=== PATIENT | female | born 1945 | race Caucasian/White ===

== ENCOUNTER 2017-03-18 15:32 | Observation (INO) ==
--- NOTE | 2017-03-18 16:45 | Oncology History&Physical ---
History of Present Illness Chief complaint: Chronic Lymphocytic Leukemia History of present illness: Ms. Clark is a 72 year old female with CLL who is admitted with progressive weakness and a rising WBC. She has had chronic lymphocytic leukemia since October 08, 2010. Her leukemia is CD20 positive. Recently her leukemia has been complicated by neutropenia. In addition, it has been complicated by shingles that affected the left arm ulnar nerve distribution in January 2015. Was treated with Valtrex and earlier this year the rash recurred without vesicles. This is unusual but does occasionally occur. I have been considering resumption of treatment of her leukemia. She has not been treated with chemotherapy since November of this year. Her last treatment consisted of bendamustine 150 mg IV when her white cell count reached 107,400. Blood work on the day of this admission included a white cell count of 122,600 with an absolute neutrophil count of 1100. Her hemoglobin was 9.2 and her platelet count was 141,000. Comprehensive metabolic profile is surprisingly normal except for a slightly high alkaline phosphatase of 115, random glucose of 276 and she had a normal LDH of 175. Her CLL has been complicated by neck pain and a ruptured lumbar disc requiring kyphoplasty. In addition she is becoming progressively more immunosuppressed with more prolonged neutropenia over the last year. My plan is to hydrate her and treat her with Rituxan tomorrow. She has reacted to Rituxan in the past and the infusion will be a long one. I also plan to treat with Treanda or Fludarabine if it can be obtained while she is an in- patient. Past medical history: Allergies: No known allergies. However she has had difficulty tolerating Rituxan in the past. Past medical history is positive for diabetes mellitus and she sees Dr. Gong for this and other medical problems. She also has a history of autoimmune hepatitis, B12 deficiency, hyperlipidemia, hypertension and chronic thyroid disease. She had been on 6-mercaptopurine for an extended period of time and I felt this contributed to her marrow suppression. The 6-MP has been stopped and at least resulted in some slight improvement in her prolonged neutropenia. In addition, there is very little evidence that her autoimmune hepatitis is activated presently. Family history is positive for colon cancer in her father, coronary artery disease and cancer of unknown type in her mother and diabetes mellitus in her mother. Social history she has never used tobacco or alcohol. Review of systems: ROS Gen.: Positive for fever and fatigue. Eyes: Positive for floaters and itchy eyes. No history of chronic disease, infections or visual loss. ENT: No history of chronic infections, epistaxis, chronic sore throat Lungs: Lately she has been having some chest wall pain with respiration. The pain is primarily in the right lower lateral chest wall. No history of asthma, emphysema, hemoptysis, chronic pleurisy or long-term or chronic infections Cardiovascular: No history of angina, coronary artery disease, congestive heart failure, cardiovascular surgery or DVT/VTE GI: Positive for bloating and decreased appetite. No history of upper or lower GI bleeding, melena, dysphagia, odynophagia, liver disease, gallbladder disease or pancreatic disease. : Positive for urinary frequency and also intermittent urinary tract infections. No history of kidney stones, chronic kidney infections or hematuria. Musculoskeletal: Positive for neck pain as well as back pain and positive for kyphoplasty and generalized muscle weakness. No history of chronic bone or joint pain or focal muscle atrophy or bone or joint deformity. Neurologic: Positive for shingles infecting the left ulnar nerve distribution with some hyperesthesias and tingling. No history of seizures, convulsions or paralysis. Psychiatric: No history of chronic psychiatric illness or psychiatric medications. Lymphatic: No history of significant or long-term lymphadenopathy in spite of having chronic lymphocytic leukemia. Hematologic: Positive for anemia, neutropenia and thrombocytopenia of varying degrees, depending on her CLL status and treatment status. No history of bleeding disorders or blood dyscrasias or long-term elevation or depression white cell count or petechiae. Skin: Positive for shingles approximately 2 years ago with a recurrence more recently. In addition, positive for development of a more recent generalized blotchy slightly raised skin rash for approximately the last month. No history of chronic skin infections. Physical examination: General: The patient appears acutely and chronically ill and also very weak and debilitated and is having trouble ambulating. Eyes: Normal lids and conjunctivae. ENT: Normal lips teeth and gums. Oral mucosa is normal pharyngeal mucosa appears normal as well and there are no masses within the oropharynx. The trachea is midline and there are no neck masses. Hearing is normal. Nodes: There is no submandibular, cervical, supraclavicular or axillary adenopathy. Respiratory: She is tender over the lower right lateral chest. Breath sounds are normal throughout without rubs, rales or rhonchi. There is symmetrical unlabored chest motion with respiration. Cardiovascular: Her heart rhythm is regular without murmur, gallop or rub. There is no jugular venous distention, clubbing or cyanosis. Vascular: No significant varicosities or evidence of DVT. Radial pulses are normal. Carotid examination reveals no bruits. Abdomen: There are no abdominal masses, organomegaly, distention, tenderness or ascites. Musculoskeletal: Her gait is somewhat unstable and she is generally weak without focal muscle atrophy or bone or joint deformity. Neurologic: Cranial nerves II through XII are intact. The no focal neurologic deficits. Psychiatric: She is oriented to time, place, person and situation. Impression: Chronic lymphocytic leukemia with progression of disease: Mild neutropenia: Anemia secondary to chronic illness and CLL: Autoimmune hepatitis: History of B12 deficiency: Diabetes mellitus: Hypertensive cardiovascular disease: History of thyroid disease: History of hyperlipidemia: My plan is to treat the patient's chronic lymphocytic leukemia and to hydrate her presently and observe her for couple days to see if her strength will not improve. Home Medications Medication Instructions Recorded Confirmed Type Cyanocobalamin Inj [Vitamin B12 1,000 mcg IM Q30D 03/27/16 03/18/17 History Inj] Glimepiride 2 mg PO DAILY 03/27/16 03/18/17 History Levothyroxine Tab [Synthroid Tab] 100 mcg PO DAILY@0700 03/27/16 03/18/17 History NIFEdipine [Nifedipine ER] 30 mg PO DAILY 03/27/16 03/18/17 History hydrALAZINE TAB [Apresoline Tab] 25 mg PO BID 03/27/16 03/18/17 History predniSONE TAB [PredniSONE] 5 mg PO DAILY 03/27/16 03/18/17 History Allergies Allergy/AdvReac Type Severity Reaction Status Date / Time No Known Allergies Allergy Unverified 03/27/16 09:45 Medical,Surgical,& Family Hx - Medical History Cardio: History of: Hypertension No history of: Aneurysm, Cardiac Dysrhythmia, Cerebrovascular Disease, Congenital Heart Disease, CHF, CAD, MA, Pacemaker, PVD, Valvular Heart Disease, Cardiovascular Problems Endocrine: History of: Diabetes Mellitus (NIDDM), Thyroid Disorder No history of: Dyslipidemia Renal: No history of: Renal (Kidney) Cancer, Dialysis, Renal Failure, Renal Problems Genitourinary: History of: Bladder Problem (Bladder tact) No history of: Kidney Stones, Recurring Urinary Tract Infections, Genitourinary Cancer, Problems Gastrointestinal: No history of: Hemorrhoids Musculoskeletal: History of: Musculoskeletal Problems (back pain) Hematology: History of: Hematologic Cancer Other: History of: Cancer (leukemia), Miscellaneous Medical Problems (leukemia) - Surgical History Cardiac Surgeries: Patient Denies: Femoral-Popliteal Bypass Graft, Cardiac Catheterization, Cardiac Surgery, Carotid Endarterectomy, Internal Defibrillator, Vascular Access Devices HEENT Surgeries: Patient denies: Carotid Endarterectomy Abdominal Surgeries: Patient denies: Abdominal Surgery, Splenectomy Reproductive Surgeries: Surgical HX of;: Hysterectomy (partial) - Family History Family History: Reports;: Family Cancer (father had colon cancer), Family Diabetes (mother), Family Heart Disease (mother) Denies;: Family Anesthesia Reaction, Family Hypertension, Family Psychiatric Problems, Family Stroke - Social History Smoking Status: Never smoker Exam - Constitutional Vitals: Period Temp Pulse Resp BP Sys/Lawler Pulse Ox Last 24 Hr 97.2 F 75 18 189/75 96 Results - Labs CBC & BMP: 03/19/17 04:33 03/19/17 04:33
[2017-03-18] MEDS: DEXT 5% NACL 0.45% KCL 20 MEQ 20 MEQ/1,000 ML BAG IV SCH (17:12)
[2017-03-18] MEDS: DEXAMETHASONE INJ 20 MG in SODIUM CHLORIDE 0.9% 50 ML IV SCH (17:44)
[2017-03-19 04:47] LABS: Hematocrit 27.3 VOL% (35.7-47.0); Hemoglobin 8.4 GM/DL (12.0-16.0); Immature Granulocytes Absolute 0.04 #; Lymphocytes # 105.7 10*3/uL (1.4-4.0); Lymphocytes % 93.9 % (21.3-54.2); Mean Corpuscular HGB Conc 30.8 GM/DL (32-36); Mean Corpuscular Hemoglobin 33 PG (27-34); Mean Corpuscular Volume 106.2 FL (87-102); Mean Platelet Volume 10.3 FL (9.6-12.0); Monocytes # 5.7 10*3/uL (0.11-0.8); Monocytes % 5.1 % (1.7-12.7); Red Blood Count 2.57 MC/CUMM (3.8-5.5); Red Cell Distribution Width 16.3 % (9.3-17.3)
[2017-03-19 04:52] LABS: Platelet Count 96 T/CUMM (130-400)
[2017-03-19 04:53] LABS: White Blood Count 112.5 T/CUMM (4-12)
[2017-03-19 05:22] LABS: Segmented Neutrophils 1 % (50-85); Total Cells Counted 100
[2017-03-19 05:25] LABS: Platelet Estimate Decreased
[2017-03-19 05:26] LABS: Hypochromasia 1+; Smudge Cells 1+
[2017-03-19 05:27] LABS: Albumin 2.9 G/DL (3.4-5.0); Calcium 8.1 MG/DL (8.5-10.1); Osmolality,Calculated 285.8 MOS/KG (273-304); Potassium 5.1 MMOL/L (3.5-5.1); Tear Drop Cells Few; Total Protein 5.7 G/DL (6.4-8.3)
[2017-03-19] MEDS ORDERED: diphenhydrAMINE CAP 25 MG CAPSULE PO PRN (07:33)
[2017-03-19] MEDS ORDERED: chlorproMAZINE 25 MG TABLET PO PRN (07:33)
[2017-03-19] MEDS ORDERED: ALPRAZolam 0.25 MG TABLET PO PRN (07:33)
[2017-03-19] MEDS ORDERED: chlorproMAZINE INJ 25 MG in SODIUM CHLORIDE 0.9% 100 ML IV PRN (07:33)
[2017-03-19] MEDS ORDERED: MYLANTA/LIDO VISC 2:1 300 ML BOTTLE SWISH/SPIT PRN (07:33)
[2017-03-19] MEDS ORDERED: MAGNESIUM HYDROXIDE SUSP 30 ML UDCUP PO PRN (07:33)
[2017-03-19] MEDS ORDERED: LOPERAMIDE 2 MG CAPSULE PO PRN ×2 (07:33)
[2017-03-19] MEDS ORDERED: MYLANTA/LIDO VISC 2:1 300 ML BOTTLE SWISH/SWAL PRN (07:33)
[2017-03-19] MEDS ORDERED: ONDANSETRON 4 MG/2 ML VIAL IV PRN (07:33)
[2017-03-19] MEDS ORDERED: BENZTROPINE 2 MG/2 ML AMP IV PRN (07:33)
[2017-03-19] MEDS ORDERED: chlorproMAZINE INJ 50 MG in SODIUM CHLORIDE 0.9% 100 ML IV PRN (07:33)
[2017-03-19] MEDS ORDERED: TEMAZEPAM 7.5 MG CAPSULE PO PRN (07:33)
[2017-03-19] MEDS ORDERED: traMADol 50 MG TABLET PO PRN (07:33)
[2017-03-19] MEDS ORDERED: LACTULOSE 20 GM/30 ML UDCUP PO PRN (07:33)
[2017-03-19] MEDS ORDERED: ACETAMINOPHEN 325 MG TABLET PO PRN (07:33)
[2017-03-19] MEDS ORDERED: ALUMINUM/MAGNES/SIMETH MAX STR 30 ML UDCUP PO PRN (07:33)
[2017-03-19] MEDS ORDERED: guaiFENesin 200 MG/10 ML UDCUP PO PRN (07:33)
[2017-03-19] MEDS ORDERED: PROMETHAZINE INJ 25 MG in SODIUM CHLORIDE 0.9% 50 ML IV PRN (07:33)
--- NOTE | 2017-03-19 07:46 | EKG Report ---
Stationary ECG Study [facility] Test Date: 03/19/2017 7:44:57 AM Pat Name: GOMEZ DUBON Department: Room: 418 Gender: F [employer] Sales Representative: DANIEL : 1945 Requested by: Frederic Anguiano Order Number: [id number] Reading MD: WALDO RODRIGUEZ Intervals [place] Rate: 72 P: 59 VA: 148 QRS: 9 QRSD: 90 T: 21 QT: 380 QTc: 404 Interpretive Statements SINUS RHYTHM Electronically Signed On 03-20-17 15:40:24 CDT by WALDO RODRIGUEZ [email or web address]
[2017-03-19 08:31] LABS: Lymphocytes 99 % (20-55)
[2017-03-19 08:32] LABS: Atypical Lymphocytes Few
[2017-03-19 08:33] LABS: Macrocytosis 1+; Ovalocytes Slight
--- NOTE | 2017-03-19 08:46 | Oncology Progress Note ---
Oncology Subjective PN Interval history: Diagnoses: Chronic lymphocytic leukemia with progression of disease: We are proceeding with Rituxan today. This will need to be given exceedingly slowly because of the patient's prior history of reaction to it. I am hoping to be able to give bendamustine tomorrow. Mild neutropenia: Absolute neutrophil count today is 1000. Anemia secondary to chronic illness and CLL: Hemoglobin today is 8.4. Autoimmune hepatitis: Transaminases are normal. History of B12 deficiency: Diabetes mellitus: Starting sliding scale insulin. Hypertensive cardiovascular disease: History of thyroid disease: History of hyperlipidemia: On physical examination the shingles rash has completely cleared from her left arm and it may have been in the median nerve rather than the ulnar nerve distribution. She has a persistent rash over her lower extremities but this may have actually been small ecchymoses. She is oriented 4. Mood and affect are normal. Her lungs are clear with normal breath sounds. Heart sounds are normal. There is no jugular venous distention, clubbing or cyanosis. There is no abdominal distention or ascites and there is no abdominal mass palpable. She has no submandibular, cervical, supraclavicular or axillary adenopathy. Cranial nerves II through XII are intact. There are no focal neurologic deficits. We have bendamustine ordered for tomorrow. It actually may arrive today but I will wait for tomorrow to give it. She is feeling much better today but she has had IV dexamethasone. Exam - Constitutional Vitals: Period Temp Pulse Resp BP Sys/Lawler Pulse Ox Last 24 Hr 97.0 F-97.5 F 66-82 18-20 142-189/68-83 92-96 Results - Labs CBC & BMP: 03/19/17 04:33 03/19/17 04:33
--- NOTE | 2017-03-19 08:53 | XRay Report ---
XR chest 2V Date: 03/19/2017 7:38 AM History: CLL, weakness Comparison: 01/18/2017 Technique: PA and lateral chest Findings: The heart is borderline in size with stable right venous access catheter. Progressive parenchymal findings in the left lower lung zone. Osteopenia with prior lumbar kyphoplasty. Impression: Expiratory chest. Minimal atelectasis/infiltration at left lung base. Osteopenia with prior lumbar kyphoplasty. PROCEDURE INTERPRETED AT [facility] DEPARTMENT OF RADIOLOGY Final Report Signed by: Dr. Sudha Kapadia
[2017-03-19] MEDS ORDERED: ACETAMINOPHEN 325 MG TABLET PO ONE (09:05)
[2017-03-19] MEDS ORDERED: diphenhydrAMINE CAP 50 MG CAPSULE PO ONE (09:06)
[2017-03-19] MEDS: DEXAMETHASONE INJ 20 MG in SODIUM CHLORIDE 0.9% 50 ML IV SCH (10:36)
[2017-03-19] MEDS: predniSONE 5 MG TABLET PO SCH (10:42)
[2017-03-19] MEDS: hydrALAZINE 25 MG TABLET PO SCH ×2 (10:42→20:48)
[2017-03-19] MEDS: DEXT 5% NACL 0.45% KCL 20 MEQ 20 MEQ/1,000 ML BAG IV SCH (10:43)
[2017-03-19] MEDS: GLIMEPIRIDE 2 MG TABLET PO SCH (10:45)
[2017-03-19] MEDS ORDERED: CYANOCOBALAMIN 1000 MCG/1 ML VIAL IM SCH (11:00)
[2017-03-19] MEDS: INSULIN REGULAR 100 UNIT/ML SUBCUT SCH ×3 (11:27→20:48)
[2017-03-20] MEDS: DEXT 5% NACL 0.45% KCL 20 MEQ 20 MEQ/1,000 ML BAG IV SCH ×3 (03:49→17:40)
[2017-03-20 05:45] LABS: Basophils % 0.1 % (0.0-0.8); Hematocrit 23.9 VOL% (35.7-47.0); Hemoglobin 7.6 GM/DL (12.0-16.0); Immature Granulocytes Absolute 0.01 #; Lymphocytes % 89.9 % (21.3-54.2); Mean Corpuscular HGB Conc 31.8 GM/DL (32-36); Mean Corpuscular Hemoglobin 34 PG (27-34); Mean Corpuscular Volume 105.8 FL (87-102); Mean Platelet Volume 10.8 FL (9.6-12.0); Monocytes # 2.5 10*3/uL (0.11-0.8); Monocytes % 5.7 % (1.7-12.7); Neutrophils # 1.9 10*3/uL (1.4-7.4); Neutrophils % 4.3 % (38.7-73.9); Red Blood Count 2.26 MC/CUMM (3.8-5.5); Red Cell Distribution Width 16.6 % (9.3-17.3)
[2017-03-20 06:18] LABS: Platelet Count 66 T/CUMM (130-400); White Blood Count 43.4 T/CUMM (4-12)
[2017-03-20 06:26] LABS: Lymphocytes 89 % (20-55); Platelet Estimate Decreased; Total Cells Counted 100
[2017-03-20 06:27] LABS: Atypical Lymphocytes Few; Hypochromasia 1+; Macrocytosis Slight; Ovalocytes Slight; Segmented Neutrophils 9 % (50-85); Smudge Cells Few
[2017-03-20 06:28] LABS: Albumin 2.9 G/DL (3.4-5.0); Bilirubin,Total 1.7 MG/DL (0.2-1.0); Calcium 8.2 MG/DL (8.5-10.1); Osmolality,Calculated 291.1 MOS/KG (273-304); Potassium 4.2 MMOL/L (3.5-5.1); Total Protein 5.3 G/DL (6.4-8.3)
[2017-03-20] MEDS: LEVOTHYROXINE 100 MCG TABLET PO SCH (06:51)
[2017-03-20] MEDS ORDERED: SODIUM CHLORIDE 0.9% 250 ML IV PRN (08:57)
--- NOTE | 2017-03-20 09:02 | Oncology Progress Note ---
Oncology Subjective PN Interval history: Chronic lymphocytic leukemia with progression of disease: She received Rituxan yesterday and will receive Treanda today. Kyphoplasty for disc disease: She was having chest wall pain on admission. I suspect that the right lateral chest wall pain was related to the previous kyphoplasty done about 2 months ago and that the corticosteroids have relieved that pain. It is generally relieved by Advil and she prefers not to take narcotics. Mild neutropenia: Absolute neutrophil count today is 1900 with a total white cell count of 43,400 today, down from 112,500 on March 19. Anemia secondary to chronic illness and CLL: Hemoglobin today is 7.6. I have ordered 2 units of packed red cells to be transfused. Autoimmune hepatitis: Transaminases are normal. History of B12 deficiency: Diabetes mellitus: On sliding scale insulin. Hypertensive cardiovascular disease: History of thyroid disease: History of hyperlipidemia: Physical examination: Eyes: Normal lids and conjunctivae. ENT: Oral mucosa and pharynx normal. Hearing normal trachea midline. Lungs: Normal chest motion and breath sounds without rubs, rales or rhonchi Cardiovascular: Heart rhythm is regular without murmur, gallop or rub. There is no jugular venous distention, clubbing or cyanosis. Abdomen: No abdominal masses organomegaly. Musculoskeletal examination does not reveal any significant abnormalities today. Neurologic: Cranial nerves II through XII are intact. There are no focal neurologic deficits. Exam - Constitutional Vitals: Period Temp Pulse Resp BP Sys/Lawler Pulse Ox Last 24 Hr 96.9 F-97.9 F 66-91 18-20 99-151/50-70 92-96 Results - Labs CBC & BMP: 03/20/17 04:57 03/20/17 04:57
[2017-03-20] MEDS: GLIMEPIRIDE 2 MG TABLET PO SCH (09:15)
[2017-03-20] MEDS: predniSONE 5 MG TABLET PO SCH (09:15)
[2017-03-20] MEDS: hydrALAZINE 25 MG TABLET PO SCH ×2 (09:15→21:26)
[2017-03-20] MEDS: INSULIN REGULAR 100 UNIT/ML SUBCUT SCH ×4 (09:43→21:27)
[2017-03-20] MEDS: DEXAMETHASONE INJ 20 MG in SODIUM CHLORIDE 0.9% 50 ML IV SCH (09:44)
[2017-03-20] MEDS ORDERED: SODIUM CHLORIDE 0.9% IV ONE (10:00)
[2017-03-20] MEDS ORDERED: BENDAMUSTINE IV ONE (10:00)
[2017-03-21] MEDS: DEXT 5% NACL 0.45% KCL 20 MEQ 20 MEQ/1,000 ML BAG IV SCH (01:09)
[2017-03-21 05:10] LABS: Basophils % 0.1 % (0.0-0.8); Hematocrit 29.5 VOL% (35.7-47.0); Hemoglobin 9.5 GM/DL (12.0-16.0); Immature Granulocytes % 0.1 %; Immature Granulocytes Absolute 0.04 #; Lymphocytes # 31.4 10*3/uL (1.4-4.0); Lymphocytes % 89.7 % (21.3-54.2); Mean Corpuscular HGB Conc 32.2 GM/DL (32-36); Mean Corpuscular Hemoglobin 32 PG (27-34); Mean Platelet Volume 10.5 FL (9.6-12.0); Monocytes # 1.4 10*3/uL (0.11-0.8); Monocytes % 3.9 % (1.7-12.7); NRBC # 0.02 10*3/uL; Neutrophils # 2.2 10*3/uL (1.4-7.4); Neutrophils % 6.2 % (38.7-73.9); Platelet Count 60 T/CUMM (130-400); Red Blood Count 2.95 MC/CUMM (3.8-5.5); Red Cell Distribution Width 19.7 % (9.3-17.3)
[2017-03-21 05:43] LABS: Albumin 2.8 G/DL (3.4-5.0); Bilirubin,Total 0.4 MG/DL (0.2-1.0); Osmolality,Calculated 285.3 MOS/KG (273-304); Potassium 4.1 MMOL/L (3.5-5.1); Total Protein 5.2 G/DL (6.4-8.3)
[2017-03-21 06:13] LABS: Atypical Lymphocytes Few; Hypochromasia 1+; Lymphocytes 93 % (20-55); Macrocytosis 1+; Segmented Neutrophils 5 % (50-85); Smudge Cells Few; Total Cells Counted 100
[2017-03-21 06:14] LABS: Platelet Estimate Decreased
[2017-03-21] MEDS: LEVOTHYROXINE 100 MCG TABLET PO SCH (06:37)
[2017-03-21 07:55] VITALS: BP 163/72
[2017-03-21] MEDS: INSULIN REGULAR 100 UNIT/ML SUBCUT SCH ×2 (07:55→13:20)
[2017-03-21] MEDS: GLIMEPIRIDE 2 MG TABLET PO SCH (08:24)
[2017-03-21] MEDS: hydrALAZINE 25 MG TABLET PO SCH (08:24)
[2017-03-21] MEDS: predniSONE 5 MG TABLET PO SCH (08:25)
[2017-03-21] MEDS: DEXAMETHASONE INJ 20 MG in SODIUM CHLORIDE 0.9% 50 ML IV SCH (08:25)
--- NOTE | 2017-03-21 10:27 | Oncology Progress Note ---
Oncology Subjective PN Interval history: Chronic lymphocytic leukemia with progression of disease: She received Rituxan 500 mg IV on March 19 followed by Treanda 150 mg IV on March 20. She had a dramatic improvement in blood work from admission until today. Kyphoplasty for disc disease: She was having chest wall pain on admission. I suspect that the right lateral chest wall pain was related to the previous kyphoplasty done about 2 months ago and that the corticosteroids have relieved that pain. It is generally relieved by Advil and she prefers not to take narcotics. Her CLL management has been complicated by neck pain and a ruptured lumbar disc requiring kyphoplasty. Mild neutropenia: Absolute neutrophil count today is 35,000 with an absolute neutrophil count of 2200, down from 112,500 on March 19. Anemia secondary to chronic illness and CLL: Hemoglobin today is 9.5. She was transfused 2 units of packed red cells yesterday. Autoimmune hepatitis: I actually wonder if her underlying autoimmune hepatitis has anything to do with her elevated lymphocytes but I think that the lymphocytosis is purely due to the chronic lymphocytic leukemia. Her liver enzymes today include an AST is normal at 17 with a normal ALT of 38 and an alkaline phosphatase of 146. Her serum albumin is 2.8 and I think this is multifactorial. Thrombocytopenia: Her platelet count today is 60,000. History of B12 deficiency: Diabetes mellitus: On sliding scale insulin while hospitalized. I do not plan to send her home on this. 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 Parehs Deleon for immune hepatitis and had been on 6-mercaptopurine but this has been discontinued and her liver function has remained relatively stable without evidence of elevation of transaminases. I am making a copy of this note for her to take to Dr. Deleon. Hypertensive cardiovascular disease: History of thyroid disease: History of hyperlipidemia: Ms. Clark is a 72 year old female with CLL who is admitted with progressive weakness and a rising WBC. She has had chronic lymphocytic leukemia since October 08, 2010. Her leukemia is CD20 positive. Recently her leukemia has been complicated by neutropenia. In addition, it has been complicated by shingles that affected the left arm ulnar nerve distribution in January 2015. Was treated with Valtrex and earlier this year the rash recurred without vesicles. This is unusual but does occasionally occur. She is improved now and she has an appointment to see me April 13 with a CBC , CMP and LDH. I am instructing her to call so that she can set up a CBC, CMP and LDH for 2 weeks from now and weekly thereafter until she sees me. I Exam - Constitutional Vitals: Period Temp Pulse Resp BP Sys/Lawler Pulse Ox Last 24 Hr 97.2 F-98.7 F 63-82 18-20 143-187/67-86 92-96 Results - Labs CBC & BMP: 03/21/17 04:00 03/21/17 04:00 Specialty Discharge - Follow Up or Referrals Follow up with: Frederic Carroll MD [Physician] - 04/13/17 10:15 am (Appointment with Dr. Carroll Thursday at 10:15 AM for lab work, Doctor visit at 12:15 PM Weekly labwork at Dr. Carroll's office started the week of 03/30/17 Please have labwork from Doctor visit on faxed to Dr. Carroll.)
--- NOTE | 2017-03-21 11:38 | Discharge Summary ---
Hospital Course - Hospital Course Hospital Course: Chronic lymphocytic leukemia with progression of disease: She received Rituxan 500 mg IV on March 19 followed by Treanda 150 mg IV on March 20. She had a dramatic improvement in blood work from admission until today. Kyphoplasty for disc disease: She was having chest wall pain on admission. I suspect that the right lateral chest wall pain was related to the previous kyphoplasty done about 2 months ago and that the corticosteroids have relieved that pain. It is generally relieved by Advil and she prefers not to take narcotics. Her CLL management has been complicated by neck pain and a ruptured lumbar disc requiring kyphoplasty. Mild neutropenia: Absolute neutrophil count today is 35,000 with an absolute neutrophil count of 2200, down from 112,500 on March 19. Anemia secondary to chronic illness and CLL: Hemoglobin today is 9.5. She was transfused 2 units of packed red cells yesterday. Autoimmune hepatitis: I actually wonder if her underlying autoimmune hepatitis has anything to do with her elevated lymphocytes but I think that the lymphocytosis is purely due to the chronic lymphocytic leukemia. Her liver enzymes today include an AST is normal at 17 with a normal ALT of 38 and an alkaline phosphatase of 146. Her serum albumin is 2.8 and I think this is multifactorial. Thrombocytopenia: Her platelet count today is 60,000. History of B12 deficiency: Diabetes mellitus: On sliding scale insulin while hospitalized. I do not plan to send her home on this. 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 Paresh Deleon for immune hepatitis and had been on 6-mercaptopurine but this has been discontinued and her liver function has remained relatively stable without evidence of elevation of transaminases. I am making a copy of this note for her to take to Dr. Deleon. Hypertensive cardiovascular disease: History of thyroid disease: History of hyperlipidemia: Ms. Clark is a 72 year old female with CLL who is admitted with progressive weakness and a rising WBC. She has had chronic lymphocytic leukemia since October 08, 2010. Her leukemia is CD20 positive. Recently her leukemia has been complicated by neutropenia. In addition, it has been complicated by shingles that affected the left arm ulnar nerve distribution in January 2015. Was treated with Valtrex and earlier this year the rash recurred without vesicles. This is unusual but does occasionally occur. She is improved now and she has an appointment to see me April 13 with a CBC , CMP and LDH. I am instructing her to call so that she can set up a CBC, CMP and LDH for 2 weeks from now and weekly thereafter until she sees me. - Time spent with patient Time with patient DS: Greater than 30 minutes Specialty Discharge - Follow Up or Referrals Follow up with: Frederic Carroll MD [Physician] - 04/13/17 10:15 am (Appointment with Dr. Carroll Thursday at 10:15 AM for lab work, Doctor visit at 12:15 PM Weekly labwork at Dr. Carroll's office started the week of 03/30/17 Please have labwork from Doctor visit on faxed to Dr. Carroll.) Discharge Plan - Discharge Data Disposition: Disch To Home/Self Care Condition at Discharge: Guarded Discharge Diet: advance to your usual diet Activity: resume usual activities as tolerated Hygiene: no restrictions Weight Bearing at Discharge: weight bear as tolerated Driving: other Contact your physician if you experience:: fever over 101, Difficulty voiding, Redness or swelling, Nausea/Vomiting, Shortness of breath, Bleeding, pain uncontrolled by pain medications - Discharge Medications Continue Levothyroxine Tab [Synthroid Tab] 100 mcg PO DAILY@0700 Cyanocobalamin Inj [Vitamin B12 Inj] 1,000 mcg IM Q30D predniSONE TAB [PredniSONE] 5 mg PO DAILY Glimepiride 2 mg PO DAILY hydrALAZINE TAB [Apresoline Tab] 25 mg PO BID NIFEdipine [Nifedipine ER] 30 mg PO DAILY - Follow Up or Referral Follow Up: Frederic Carroll MD [Physician] - 04/13/17 10:15 am (Appointment with Dr. Carroll Thursday at 10:15 AM for lab work, Doctor visit at 12:15 PM Weekly labwork at Dr. Carroll's office started the week of 03/30/17 Please have labwork from Doctor visit on faxed to Dr. Carroll.) - Forms/Instructions Additional Discharge Instructions: I am sending a copy of this discharge summary to Dr. Janeth Yee by way of the patient. I am also instructing her to call my office and set up CBCs, CMP's and LDH with to be started in 2 weeks and to continue until I see her. Exam - Constitutional Vitals: Period Temp Pulse Resp BP Sys/Lawler Pulse Ox Last 24 Hr 97.2 F-98.7 F 63-82 18-20 143-187/67-86 92-96 Discharge Results Procedures and tests throughout hospitalization: Pending Orders 03/22/17 04:00 Comp Blood Count Auto Diff IN AM Comprehensive Metabolic Panel IN AM Lactate Dehydrogenase IN AM 03/23/17 04:00 Comp Blood Count Auto Diff IN AM Comprehensive Metabolic Panel IN AM Lactate Dehydrogenase IN AM 03/24/17 04:00 Comp Blood Count Auto Diff IN AM Comprehensive Metabolic Panel IN AM Lactate Dehydrogenase IN AM Labs on day of discharge: Labs from last 24 hours 03/21/17 03/21/17 03/21/17 07:42 04:00 04:00 WBC 35.0 H RBC 2.95 L D Hgb 9.5 L D Hct 29.5 L MCV 100.0 MCH 32 MCHC 32.2 RDW 19.7 H Plt Count 60 L MPV 10.5 Neut % (Auto) 6.2 L Lymph % (Auto) 89.7 H [place] % (Auto) 3.9 Eos % (Auto) 0.0 Baso % (Auto) 0.1 Neut # (Auto) 2.2 Lymph # (Auto) 31.4 H [place] # (Auto) 1.4 H Eos # (Auto) 0.0 Baso # (Auto) 0.0 Total Counted 100 Immature Gran % 0.1 Nucleated RBC % 0.1 Immature Gran # 0.04 Segmented Neutrophils 5 L Lymphocytes 93 H Monocytes 2 Nucleated RBCs # 0.02 Atypical Lymphocytes Few Smudge Cells Few Platelet Estimate Decreased Immature Plt Fraction 0.0 Hypochromasia 1+ Macrocytosis 1+ Sodium 141 Potassium 4.1 Chloride 107 Carbon Dioxide 26 Anion Gap 12.1 BUN 21 H Creatinine 0.90 GFR Calculation 66 BUN/Creatinine Ratio 23.00 H Glucose 136 H POC Glucose 89 Calculated Osmolality 285.3 Calcium 8.0 L Total Bilirubin 0.40 AST 17 ALT 38 Alkaline Phosphatase 146 H Lactate Dehydrogenase 205 Total Protein 5.2 L Albumin 2.8 L Globulin 2.4 Albumin/Globulin Ratio 1.1 Blood Type Antibody Screen Crossmatch Blood Bank Comment 03/20/17 03/20/17 03/20/17 20:58 17:00 12:32 WBC RBC Hgb Hct MCV MCH MCHC RDW Plt Count MPV Neut % (Auto) Lymph % (Auto) [place] % (Auto) Eos % (Auto) Baso % (Auto) Neut # (Auto) Lymph # (Auto) [place] # (Auto) Eos # (Auto) Baso # (Auto) Total Counted Immature Gran % Nucleated RBC % Immature Gran # Segmented Neutrophils Lymphocytes Monocytes Nucleated RBCs # Atypical Lymphocytes Smudge Cells Platelet Estimate Immature Plt Fraction Hypochromasia Macrocytosis Sodium Potassium Chloride Carbon Dioxide Anion Gap BUN Creatinine GFR Calculation BUN/Creatinine Ratio Glucose POC Glucose 271 H 275 H 198 H Calculated Osmolality Calcium Total Bilirubin AST ALT Alkaline Phosphatase Lactate Dehydrogenase Total Protein Albumin Globulin Albumin/Globulin Ratio Blood Type Antibody Screen Crossmatch Blood Bank Comment 03/20/17 04:00 WBC RBC Hgb Hct MCV MCH MCHC RDW Plt Count MPV Neut % (Auto) Lymph % (Auto) [place] % (Auto) Eos % (Auto) Baso % (Auto) Neut # (Auto) Lymph # (Auto) [place] # (Auto) Eos # (Auto) Baso # (Auto) Total Counted Immature Gran % Nucleated RBC % Immature Gran # Segmented Neutrophils Lymphocytes Monocytes Nucleated RBCs # Atypical Lymphocytes Smudge Cells Platelet Estimate Immature Plt Fraction Hypochromasia Macrocytosis Sodium Potassium Chloride Carbon Dioxide Anion Gap BUN Creatinine GFR Calculation BUN/Creatinine Ratio Glucose POC Glucose Calculated Osmolality Calcium Total Bilirubin AST ALT Alkaline Phosphatase Lactate Dehydrogenase Total Protein Albumin Globulin Albumin/Globulin Ratio Blood Type AB POSITIVE Antibody Screen Cancelled Crossmatch See Detail Blood Bank Comment Cancelled DS: Provider Date of admission: 03/18/17 15:34 Primary care physician: Jl Gong MD Attending physician on admission: Frederic Carroll MD Consults: 03/19/17 07:33 Consult to Physician [CONS] Routine Comment: notify of admission Consulting Provider: Jl Gong Discharging clinician: Frederic Carroll MD
[2017-03-21] MEDS ORDERED: HEPARIN LOCK FLUSH 500 UNIT/5 ML SYRINGE IV PRN (12:41)
[2017-03-21] MEDS ORDERED: HEPARIN LOCK FLUSH 500 UNIT/5 ML SYRINGE IV ONE (12:41)
== END 2017-03-21 13:40 | disposition home or self-care (01) ==
LOC: N.4E
PROVIDERS: ADMIT Specialist; ATTEND Specialist

== ENCOUNTER 2017-05-05 17:57 | Inpatient (IN) ==
[2017-05-05] MEDS ORDERED: SODIUM CHLORIDE 0.9% 1,000 ML IV STA (18:56)
[2017-05-05] MEDS ORDERED: cefTRIAXone 1,000 MG in SODIUM CHLORIDE 0.9% 100 ML IV STA (18:59)
[2017-05-05 19:07] LABS: Basophils % 0.1 % (0.0-0.8); Hematocrit 26.6 VOL% (35.7-47.0); Lymphocytes % 93.4 % (21.3-54.2); Mean Corpuscular HGB Conc 33.8 GM/DL (32-36); Mean Corpuscular Hemoglobin 34 PG (27-34); Mean Corpuscular Volume 99.6 FL (87-102); Mean Platelet Volume 10.3 FL (9.6-12.0); Monocytes # 2.5 10*3/uL (0.11-0.8); Monocytes % 6.2 % (1.7-12.7); Neutrophils # 0.1 10*3/uL (1.4-7.4); Neutrophils % 0.3 % (38.7-73.9); Red Blood Count 2.67 MC/CUMM (3.8-5.5); Red Cell Distribution Width 20.5 % (9.3-17.3)
[2017-05-05 19:13] LABS: Platelet Count 53 T/CUMM (130-400); White Blood Count 40.7 T/CUMM (4-12)
[2017-05-05 19:23] LABS: Calcium 7.9 MG/DL (8.5-10.1); Magnesium 1.8 MG/DL (1.8-2.4); Osmolality,Calculated 276.2 MOS/KG (273-304); Potassium 3.5 MMOL/L (3.5-5.1)
[2017-05-05 19:28] LABS: Lymphocytes 96 % (20-55); Platelet Estimate Decreased; Poikilocytosis 1+; Segmented Neutrophils 1 % (50-85); Tear Drop Cells 1+; Total Cells Counted 100
[2017-05-05 19:29] LABS: Ovalocytes Slight; Smudge Cells 1+
[2017-05-05] MEDS ORDERED: cefTRIAXone 1,000 MG VIAL ONE (19:47)
[2017-05-05 19:48] LABS: Apearance,Urine Slightly Hazy (Clear); Bacteria,Urine Few /HPF (Few); Bilirubin,Urine Negative (Negative); Blood, Urine Small mg/dL (Negative); Glucose,Urine (UA) >=500 mg/dL (Negative); Granular Casts,Urine 4 /LPF (0-1); Hyaline Casts,Urine 16 /LPF (0-3); Ketones,Urine 20 mg/dL (Negative); Mucus,Urine Occasional /LPF (Occasional); Nitrite,Urine Negative (Negative); Protein,Urine 100 MG/DL; RBC,Urine 1 /HPF (0-4); Squamous Epithelial Cell,Urine Occasional /HPF (0-10); Urine Color Yellow (Yellow); Urine Specific Gravity 1.015 (1.001-1.035); Urine Urobilinogen < 2.0 EU/DL (0.2-1.0); WBC,Urine 4 /HPF (0-6)
[2017-05-05] MEDS ORDERED: OSELTAMIVIR 75 MG CAPSULE PO ONE (21:57)
[2017-05-06] MEDS ORDERED: FILGRASTIM-SNDZ 300 MCG/0.5 ML SYRINGE SUBCUT ONE (08:00)
[2017-05-06] MEDS: MEROPENEM 1,000 MG in SODIUM CHLORIDE 0.9% 50 ML IV SCH ×2 (09:18→17:16)
[2017-05-06] MEDS: OSELTAMIVIR 75 MG CAPSULE PO SCH ×2 (09:18→21:17)
[2017-05-06] MEDS ORDERED: traMADol 50 MG TABLET PO PRN ×2 (10:02→18:22)
[2017-05-06] MEDS ORDERED: TEMAZEPAM 7.5 MG CAPSULE PO PRN ×2 (10:02→18:22)
[2017-05-06] MEDS ORDERED: ALPRAZolam 0.25 MG TABLET PO PRN ×2 (10:02→18:22)
[2017-05-06] MEDS ORDERED: chlorproMAZINE 25 MG TABLET PO PRN ×2 (10:02→18:22)
[2017-05-06] MEDS ORDERED: MYLANTA/LIDO VISC 2:1 300 ML BOTTLE SWISH/SPIT PRN ×2 (10:02→18:22)
[2017-05-06] MEDS ORDERED: ALUMINUM/MAGNES/SIMETH MAX STR 30 ML UDCUP PO PRN ×2 (10:02→18:22)
[2017-05-06] MEDS ORDERED: PROMETHAZINE INJ 25 MG in SODIUM CHLORIDE 0.9% 50 ML IV PRN ×2 (10:02→18:22)
[2017-05-06] MEDS ORDERED: ONDANSETRON 4 MG/2 ML VIAL IV PRN ×2 (10:02→18:22)
[2017-05-06] MEDS ORDERED: BENZTROPINE 2 MG/2 ML AMP IV PRN ×2 (10:02→18:22)
[2017-05-06] MEDS ORDERED: LACTULOSE 20 GM/30 ML UDCUP PO PRN ×2 (10:02→18:22)
[2017-05-06] MEDS ORDERED: MAGNESIUM HYDROXIDE SUSP 30 ML UDCUP PO PRN ×2 (10:02→18:22)
[2017-05-06] MEDS ORDERED: ACETAMINOPHEN 325 MG TABLET PO PRN ×2 (10:02→18:22)
[2017-05-06] MEDS ORDERED: guaiFENesin 200 MG/10 ML UDCUP PO PRN ×2 (10:02→18:22)
[2017-05-06] MEDS ORDERED: chlorproMAZINE INJ 25 MG in SODIUM CHLORIDE 0.9% 100 ML IV PRN ×2 (10:02→18:22)
[2017-05-06] MEDS ORDERED: MYLANTA/LIDO VISC 2:1 300 ML BOTTLE SWISH/SWAL PRN ×2 (10:02→18:22)
[2017-05-06] MEDS ORDERED: diphenhydrAMINE CAP 25 MG CAPSULE PO PRN ×2 (10:02→18:22)
[2017-05-06] MEDS ORDERED: LOPERAMIDE 2 MG CAPSULE PO PRN ×4 (10:02→18:22)
[2017-05-06] MEDS ORDERED: chlorproMAZINE INJ 50 MG in SODIUM CHLORIDE 0.9% 100 ML IV PRN ×2 (10:02→18:22)
[2017-05-06] MEDS: predniSONE 20 MG TABLET PO SCH (14:42)
[2017-05-06] MEDS: hydrALAZINE 25 MG TABLET PO SCH ×2 (14:42→21:17)
[2017-05-06] MEDS ORDERED: GLIMEPIRIDE 2 MG TABLET PO SCH (18:22)
[2017-05-06] MEDS ORDERED: hydrALAZINE 25 MG TABLET PO SCH (18:22)
[2017-05-06] MEDS ORDERED: DEXTROSE 50% 25 GM/50 ML VIAL IV PRN (18:22)
[2017-05-06] MEDS ORDERED: LEVOTHYROXINE 112 MCG TABLET PO SCH (18:22)
[2017-05-06] MEDS ORDERED: GLUCAGON 1 MG VIAL IM PRN (18:22)
[2017-05-06] MEDS ORDERED: OSELTAMIVIR 30 MG CAPSULE PO SCH (18:22)
[2017-05-06] MEDS: INSULIN REGULAR 100 UNIT/ML SUBCUT SCH ×2 (21:21→22:30)
[2017-05-06] MEDS: SODIUM CHLORIDE 0.45% 1,000 ML IV SCH (21:21)
[2017-05-07] MEDS: MEROPENEM 1,000 MG in SODIUM CHLORIDE 0.9% 50 ML IV SCH (01:12)
[2017-05-07 02:45] LABS: Apearance,Urine CLEAR (Clear); Bilirubin,Urine Negative (Negative); Blood, Urine Negative (Negative); Glucose,Urine (UA) 150 mg/dL (Negative); Hyaline Casts,Urine 1 /LPF (0-3); Ketones,Urine 5 mg/dL (Negative); Nitrite,Urine Negative (Negative); Protein,Urine 30 MG/DL; RBC,Urine <1 /HPF (0-4); Renal Epithelial Cells,Urine Occasional /HPF (<1); Squamous Epithelial Cell,Urine Occasional /HPF (0-10); Urine Color Yellow (Yellow); Urine Specific Gravity 1.008 (1.001-1.035); Urine Urobilinogen < 2.0 EU/DL (0.2-1.0); WBC,Urine 2 /HPF (0-6)
[2017-05-07 05:16] LABS: Basophils # 0.1 10*3/uL (0.0-0.2); Basophils % 0.2 % (0.0-0.8); Hematocrit 27.4 VOL% (35.7-47.0); Hemoglobin 9.2 GM/DL (12.0-16.0); Immature Granulocytes Absolute 0.01 #; Lymphocytes # 62.1 10*3/uL (1.4-4.0); Lymphocytes % 91.5 % (21.3-54.2); Mean Corpuscular HGB Conc 33.6 GM/DL (32-36); Mean Corpuscular Hemoglobin 34 PG (27-34); Mean Platelet Volume 11.6 FL (9.6-12.0); Monocytes # 5.4 10*3/uL (0.11-0.8); Monocytes % 7.9 % (1.7-12.7); Neutrophils # 0.3 10*3/uL (1.4-7.4); Neutrophils % 0.4 % (38.7-73.9); Platelet Count 61 T/CUMM (130-400); Red Blood Count 2.74 MC/CUMM (3.8-5.5); Red Cell Distribution Width 20.4 % (9.3-17.3)
[2017-05-07 05:31] LABS: Albumin 3.1 G/DL (3.4-5.0); Osmolality,Calculated 280.7 MOS/KG (273-304); Potassium 3.6 MMOL/L (3.5-5.1); Total Protein 5.6 G/DL (6.4-8.3)
[2017-05-07 05:35] LABS: White Blood Count 67.9 T/CUMM (4-12)
[2017-05-07 05:59] LABS: Anisocytosis 2+; Band Neutrophils 2 % (0-10); Lymphocytes 94 % (20-55); Macrocytosis 2+; Ovalocytes 1+; Platelet Estimate Decreased; Smudge Cells Moderate; Total Cells Counted 100
[2017-05-07] MEDS: LEVOTHYROXINE 112 MCG TABLET PO SCH (06:36)
[2017-05-07] MEDS: INSULIN REGULAR 100 UNIT/ML SUBCUT SCH ×4 (07:31→21:32)
[2017-05-07] MEDS: GLIMEPIRIDE 2 MG TABLET PO SCH (07:49)
[2017-05-07] MEDS: OSELTAMIVIR 75 MG CAPSULE PO SCH ×3 (07:49→20:45)
[2017-05-07] MEDS: FILGRASTIM-SNDZ 300 MCG/0.5 ML SYRINGE SUBCUT SCH ×2 (07:50→11:00)
[2017-05-07] MEDS: hydrALAZINE 25 MG TABLET PO SCH ×3 (07:50→20:45)
[2017-05-07] MEDS: SODIUM CHLORIDE 0.45% 1,000 ML IV SCH (16:29)
[2017-05-08 05:33] LABS: Basophils % 0.1 % (0.0-0.8); Eosinophils % 0.1 % (0.00-10.9); Hemoglobin 7.7 GM/DL (12.0-16.0); Immature Granulocytes Absolute 0.01 #; Lymphocytes % 87.8 % (21.3-54.2); Mean Corpuscular HGB Conc 33.5 GM/DL (32-36); Mean Corpuscular Hemoglobin 34 PG (27-34); Mean Corpuscular Volume 101.3 FL (87-102); Mean Platelet Volume 11.3 FL (9.6-12.0); Monocytes # 3.5 10*3/uL (0.11-0.8); Monocytes % 11.1 % (1.7-12.7); NRBC # 0.02 10*3/uL; Neutrophils # 0.3 10*3/uL (1.4-7.4); Neutrophils % 0.9 % (38.7-73.9); Platelet Count 50 T/CUMM (130-400); Red Blood Count 2.27 MC/CUMM (3.8-5.5); Red Cell Distribution Width 20.2 % (9.3-17.3); White Blood Count 31.9 T/CUMM (4-12)
[2017-05-08 05:50] LABS: Albumin 2.6 G/DL (3.4-5.0); Bilirubin,Total 0.7 MG/DL (0.2-1.0); Calcium 7.4 MG/DL (8.5-10.1); Osmolality,Calculated 280.3 MOS/KG (273-304); Potassium 3.3 MMOL/L (3.5-5.1); Total Protein 4.6 G/DL (6.4-8.3)
[2017-05-08] MEDS: LEVOTHYROXINE 112 MCG TABLET PO SCH (06:35)
[2017-05-08 07:00] LABS: Band Neutrophils 1 % (0-10); Eosinophils 1 % (0-10); Lymphocytes 94 % (20-55); Macrocytosis 1+; Platelet Estimate Decreased; Segmented Neutrophils 1 % (50-85); Smudge Cells Moderate; Total Cells Counted 100
[2017-05-08] MEDS: INSULIN REGULAR 100 UNIT/ML SUBCUT SCH ×2 (07:30→14:10)
[2017-05-08] MEDS ORDERED: SODIUM CHLORIDE 0.9% 250 ML IV PRN (09:10)
[2017-05-08] MEDS: OSELTAMIVIR 75 MG CAPSULE PO SCH (09:52)
[2017-05-08] MEDS: predniSONE 20 MG TABLET PO SCH (09:53)
[2017-05-08] MEDS: FILGRASTIM-SNDZ 300 MCG/0.5 ML SYRINGE SUBCUT SCH (09:53)
[2017-05-08] MEDS: GLIMEPIRIDE 2 MG TABLET PO SCH (09:53)
[2017-05-08] MEDS: hydrALAZINE 25 MG TABLET PO SCH (09:53)
[2017-05-08] MEDS: SODIUM CHLORIDE 0.45% 1,000 ML IV SCH (14:08)
[2017-05-08] MEDS ORDERED: HEPARIN LOCK FLUSH 500 UNIT/5 ML SYRINGE IV ONE (15:29)
[2017-05-08 18:11] VITALS: BP 131/65
== END 2017-05-08 16:45 | disposition home or self-care (01) | DRG 194 ==
LOC: N.ED 17:57 → N.EDINP 21:57 → N.5E 23:53 → N.4E 05-06 08:03
PROVIDERS: ADMIT Specialist; ATTEND Specialist

== ENCOUNTER 2017-10-14 10:57 | Inpatient (IN) ==
[2017-10-14] MEDS ORDERED: ACETAMINOPHEN 325 MG TABLET PO PRN (11:02)
[2017-10-14] MEDS ORDERED: GLUCAGON 1 MG VIAL IM PRN (11:02)
[2017-10-14] MEDS ORDERED: DEXTROSE 50% 25 GM/50 ML VIAL IV PRN (11:02)
[2017-10-14] MEDS ORDERED: ONDANSETRON 4 MG/2 ML VIAL IV PRN (11:02)
[2017-10-14] MEDS: INSULIN LISPRO 100 UNIT/ML SUBCUT SCH ×3 (12:50→20:06)
[2017-10-14 12:56] LABS: Basophils # 0.1 10*3/uL (0.0-0.2); Basophils % 0.1 % (0.0-0.8); Hematocrit 28.7 VOL% (35.7-47.0); Hemoglobin 8.7 GM/DL (12.0-16.0); Immature Granulocytes % 0.3 %; Immature Granulocytes Absolute 0.51 #; Lymphocytes # 161.1 10*3/uL (1.4-4.0); Lymphocytes % 93.6 % (21.3-54.2); Mean Corpuscular HGB Conc 30.3 GM/DL (32-36); Mean Corpuscular Hemoglobin 32 PG (27-34); Mean Corpuscular Volume 105.1 FL (87-102); Mean Platelet Volume 10.3 FL (9.6-12.0); Monocytes # 9.3 10*3/uL (0.11-0.8); Monocytes % 5.4 % (1.7-12.7); Neutrophils % 0.6 % (38.7-73.9); Platelet Count 101 T/CUMM (130-400); Red Blood Count 2.73 MC/CUMM (3.8-5.5); Red Cell Distribution Width 17.1 % (9.3-17.3)
[2017-10-14 13:31] LABS: Albumin 3.1 G/DL (3.4-5.0); Bilirubin,Total 0.9 MG/DL (0.2-1.0); Osmolality,Calculated 275.8 MOS/KG (273-304); Potassium 3.8 MMOL/L (3.5-5.1); Total Protein 5.7 G/DL (6.4-8.3)
[2017-10-14 13:39] LABS: Lymphocytes 98 % (20-55); Microcytosis 1+; Platelet Estimate Decreased; Polychromasia Slight; Segmented Neutrophils 2 % (50-85); Total Cells Counted 100
[2017-10-14] MEDS: SODIUM CHLORIDE 0.9% 1,000 ML IV SCH (13:46)
[2017-10-14] MEDS: PIPERACILLIN/TAZOBACTAM 3,375 MG in SODIUM CHLORIDE 0.9% 100 ML IV SCH ×2 (13:46→20:37)
[2017-10-14 15:31] LABS: Apearance,Urine Slightly Hazy (Clear); Bilirubin,Urine Negative (Negative); Blood, Urine Negative (Negative); Glucose,Urine (UA) Negative (Negative); Ketones,Urine Negative (Negative); Mucus,Urine Occasional /LPF (Occasional); Nitrite,Urine Negative (Negative); Protein,Urine 100 MG/DL; RBC,Urine 3 /HPF (0-4); Squamous Epithelial Cell,Urine Occasional /HPF (0-10); Urine Color Yellow (Yellow); Urine Specific Gravity 1.019 (1.001-1.035); Urine Urobilinogen < 2.0 EU/DL (0.2-1.0); WBC,Urine 1 /HPF (0-6)
[2017-10-14] MEDS ORDERED: CYANOCOBALAMIN 1000 MCG/1 ML VIAL IM SCH (18:00)
[2017-10-14] MEDS ORDERED: ERGOCALCIFEROL 50,000 UNIT CAPSULE PO SCH (18:00)
[2017-10-14 18:16] LABS: Vitamin B12 1212 PG/ML (211-911)
[2017-10-14 18:37] LABS: Immunoglobulin A < 31 MG/DL (70-400); Immunoglobulin G 213 MG/DL (700-1600); Immunoglobulin M < 21 MG/DL (40-230); Total Protein 5.5 G/DL (6.4-8.3)
[2017-10-14] MEDS: DOCUSATE SODIUM 100 MG CAPSULE PO SCH (20:38)
[2017-10-14] MEDS: hydrALAZINE 25 MG TABLET PO SCH (20:38)
[2017-10-15 04:19] LABS: Basophils # 0.1 10*3/uL (0.0-0.2); Hematocrit 23.9 VOL% (35.7-47.0); Hemoglobin 7.3 GM/DL (12.0-16.0); Immature Granulocytes % 0.1 %; Immature Granulocytes Absolute 0.11 #; Lymphocytes % 95.2 % (21.3-54.2); Mean Corpuscular HGB Conc 30.5 GM/DL (32-36); Mean Corpuscular Hemoglobin 32 PG (27-34); Mean Corpuscular Volume 105.3 FL (87-102); Mean Platelet Volume 10.3 FL (9.6-12.0); Monocytes # 5.3 10*3/uL (0.11-0.8); Monocytes % 4.1 % (1.7-12.7); Neutrophils # 0.8 10*3/uL (1.4-7.4); Neutrophils % 0.6 % (38.7-73.9); Red Blood Count 2.27 MC/CUMM (3.8-5.5); Red Cell Distribution Width 16.7 % (9.3-17.3)
[2017-10-15 04:24] LABS: Platelet Count 78 T/CUMM (130-400)
[2017-10-15 04:25] LABS: White Blood Count 129.2 T/CUMM (4-12)
[2017-10-15 04:43] LABS: Lymphocytes 94 % (20-55); Segmented Neutrophils 3 % (50-85); Total Cells Counted 100
[2017-10-15 04:45] LABS: Hypochromasia 1+; Microcytosis 1+; Platelet Estimate Decreased
[2017-10-15 04:46] LABS: Smudge Cells 2+
[2017-10-15 05:05] LABS: Calcium 7.5 MG/DL (8.5-10.1); Osmolality,Calculated 286.8 MOS/KG (273-304); Potassium 3.5 MMOL/L (3.5-5.1)
[2017-10-15] MEDS: PIPERACILLIN/TAZOBACTAM 3,375 MG in SODIUM CHLORIDE 0.9% 100 ML IV SCH ×2 (05:26→17:00)
[2017-10-15 06:34] LABS: Immunoglobulin A (Chem) < 31 MG/DL (70-400); Immunoglobulin G (Chem) 213 MG/DL (700-1600); Immunoglobulin M (Chem) < 21 MG/DL (40-230); Total Protein (Chem) 5.5 G/DL (6.4-8.3)
[2017-10-15] MEDS ORDERED: SODIUM CHLORIDE 0.9% 1,000 ML IV PRN (07:50)
[2017-10-15] MEDS: INSULIN LISPRO 100 UNIT/ML SUBCUT SCH ×4 (07:55→20:56)
[2017-10-15] MEDS: SODIUM CHLORIDE 0.9% 1,000 ML IV SCH ×2 (07:55→14:14)
[2017-10-15] MEDS: LEVOTHYROXINE 125 MCG TABLET PO SCH (08:27)
[2017-10-15] MEDS: GLIMEPIRIDE 2 MG TABLET PO SCH (08:28)
[2017-10-15] MEDS: PANTOPRAZOLE 40 MG TABLET PO SCH (08:28)
[2017-10-15] MEDS: hydrALAZINE 25 MG TABLET PO SCH ×2 (08:28→20:55)
[2017-10-15] MEDS: DOCUSATE SODIUM 100 MG CAPSULE PO SCH ×2 (08:28→20:56)
[2017-10-15] MEDS: FILGRASTIM-SNDZ 300 MCG/0.5 ML SYRINGE SUBCUT SCH (08:28)
[2017-10-15 08:37] LABS: Albumin (SPE) 3.6 G/DL (3.2-5.3); Albumin (SPE) Rel % 66.5 %; Alpha 1 (SPE) 0.2 G/DL (0.1-0.4); Alpha 1 (SPE) Rel % 4.5 %; Alpha 2 (SPE) 0.7 G/DL (0.4-1.0); Alpha 2 (SPE) Rel % 13.3 %; Beta (SPE) 0.6 G/DL (0.5-1.1); Beta (SPE) Rel % 11.1 %; Gamma (SPE) 0.2 G/DL (0.7-1.7); Gamma (SPE) Rel % 4.6 %
[2017-10-15] MEDS: BENZONATATE 100 MG CAPSULE PO PRN (22:04)
[2017-10-16] MEDS: PIPERACILLIN/TAZOBACTAM 3,375 MG in SODIUM CHLORIDE 0.9% 100 ML IV SCH ×3 (01:31→18:16)
[2017-10-16 04:22] LABS: Hematocrit 31.6 VOL% (35.7-47.0); Hemoglobin 10.1 GM/DL (12.0-16.0); Immature Granulocytes % 0.4 %; Immature Granulocytes Absolute 0.71 #; Lymphocytes # 162.7 10*3/uL (1.4-4.0); Lymphocytes % 95.4 % (21.3-54.2); Mean Corpuscular Hemoglobin 31 PG (27-34); Mean Corpuscular Volume 97.2 FL (87-102); Mean Platelet Volume 10.4 FL (9.6-12.0); Monocytes % 3.5 % (1.7-12.7); Neutrophils # 1.1 10*3/uL (1.4-7.4); Neutrophils % 0.7 % (38.7-73.9); Platelet Count 80 T/CUMM (130-400); Red Blood Count 3.25 MC/CUMM (3.8-5.5); Red Cell Distribution Width 18.9 % (9.3-17.3)
[2017-10-16 04:27] LABS: White Blood Count 170.5 T/CUMM (4-12)
[2017-10-16 04:49] LABS: Calcium 7.5 MG/DL (8.5-10.1); Osmolality,Calculated 277.3 MOS/KG (273-304); Potassium 3.4 MMOL/L (3.5-5.1)
[2017-10-16 04:51] LABS: Hypochromasia 1+; Lymphocytes 99 % (20-55); Platelet Estimate Decreased; Segmented Neutrophils 1 % (50-85); Total Cells Counted 100
[2017-10-16 04:52] LABS: Atypical Lymphocytes Few; Microcytosis 1+; Ovalocytes Slight; Smudge Cells Many
[2017-10-16] MEDS: INSULIN LISPRO 100 UNIT/ML SUBCUT SCH ×4 (08:01→21:23)
[2017-10-16] MEDS: DEXT 5% NACL 0.45% KCL 20 MEQ 20 MEQ/1,000 ML BAG IV SCH (08:55)
[2017-10-16] MEDS: GLIMEPIRIDE 2 MG TABLET PO SCH (08:56)
[2017-10-16] MEDS: predniSONE 20 MG TABLET PO SCH (08:56)
[2017-10-16] MEDS: PANTOPRAZOLE 40 MG TABLET PO SCH (08:56)
[2017-10-16] MEDS: FILGRASTIM-SNDZ 300 MCG/0.5 ML SYRINGE SUBCUT SCH (08:56)
[2017-10-16] MEDS: hydrALAZINE 25 MG TABLET PO SCH ×2 (08:56→20:29)
[2017-10-16] MEDS: DOCUSATE SODIUM 100 MG CAPSULE PO SCH ×2 (08:56→20:29)
[2017-10-16] MEDS: LEVOTHYROXINE 125 MCG TABLET PO SCH (08:56)
[2017-10-16] MEDS ORDERED: DEXT 5% NACL 0.45% KCL 20 MEQ 20 MEQ/1,000 ML BAG IV SCH (09:00)
[2017-10-16] MEDS: SODIUM CHLORIDE 0.9% 1,000 ML IV SCH (13:09)
[2017-10-16] MEDS: ALBUTEROL/IPRATROPIUM 3 ML NEB RESP TX SCH (19:45)
[2017-10-17] MEDS: PIPERACILLIN/TAZOBACTAM 3,375 MG in SODIUM CHLORIDE 0.9% 100 ML IV SCH ×3 (02:11→17:17)
[2017-10-17 05:10] LABS: Basophils # 0.1 10*3/uL (0.0-0.2); Basophils % 0.1 % (0.0-0.8); Hematocrit 30.7 VOL% (35.7-47.0); Hemoglobin 9.3 GM/DL (12.0-16.0); Immature Granulocytes % 0.3 %; Immature Granulocytes Absolute 0.42 #; Lymphocytes # 130.1 10*3/uL (1.4-4.0); Lymphocytes % 91.7 % (21.3-54.2); Mean Corpuscular HGB Conc 30.3 GM/DL (32-36); Mean Corpuscular Hemoglobin 30 PG (27-34); Mean Corpuscular Volume 100.3 FL (87-102); Mean Platelet Volume 10.4 FL (9.6-12.0); Monocytes # 10.2 10*3/uL (0.11-0.8); Monocytes % 7.2 % (1.7-12.7); Neutrophils # 1.1 10*3/uL (1.4-7.4); Neutrophils % 0.7 % (38.7-73.9); Platelet Count 74 T/CUMM (130-400); Red Blood Count 3.06 MC/CUMM (3.8-5.5); Red Cell Distribution Width 18.7 % (9.3-17.3)
[2017-10-17 05:34] LABS: Calcium 7.6 MG/DL (8.5-10.1); Osmolality,Calculated 286.7 MOS/KG (273-304); Potassium 3.6 MMOL/L (3.5-5.1)
[2017-10-17 06:49] LABS: Atypical Lymphocytes Moderate; Lymphocytes 96 % (20-55); Platelet Estimate Decreased; Polychromasia Slight; Segmented Neutrophils 2 % (50-85); Smudge Cells Moderate; Total Cells Counted 100
[2017-10-17] MEDS: LEVOTHYROXINE 125 MCG TABLET PO SCH (06:54)
[2017-10-17] MEDS: INSULIN LISPRO 100 UNIT/ML SUBCUT SCH ×4 (07:52→20:21)
[2017-10-17] MEDS: GLIMEPIRIDE 2 MG TABLET PO SCH (09:23)
[2017-10-17] MEDS: PANTOPRAZOLE 40 MG TABLET PO SCH (09:24)
[2017-10-17] MEDS: DOCUSATE SODIUM 100 MG CAPSULE PO SCH ×2 (09:24→20:20)
[2017-10-17] MEDS: FILGRASTIM-SNDZ 300 MCG/0.5 ML SYRINGE SUBCUT SCH (09:24)
[2017-10-17] MEDS: hydrALAZINE 25 MG TABLET PO SCH ×2 (09:24→20:20)
[2017-10-17] MEDS: DEXT 5% NACL 0.45% KCL 20 MEQ 20 MEQ/1,000 ML BAG IV SCH ×2 (09:25→12:17)
[2017-10-17] MEDS: BENZONATATE 100 MG CAPSULE PO PRN ×2 (13:20→20:22)
[2017-10-17] MEDS ORDERED: ALBUTEROL/IPRATROPIUM 3 ML NEB RESP TX STA (14:40)
[2017-10-18] MEDS: ALBUTEROL/IPRATROPIUM 3 ML NEB RESP TX SCH ×4 (00:48→19:56)
[2017-10-18] MEDS: PIPERACILLIN/TAZOBACTAM 3,375 MG in SODIUM CHLORIDE 0.9% 100 ML IV SCH ×3 (01:28→17:29)
[2017-10-18 05:07] LABS: Hematocrit 30.3 VOL% (35.7-47.0); Hemoglobin 9.2 GM/DL (12.0-16.0); Immature Granulocytes % 0.2 %; Lymphocytes # 138.3 10*3/uL (1.4-4.0); Lymphocytes % 90.4 % (21.3-54.2); Mean Corpuscular HGB Conc 30.4 GM/DL (32-36); Mean Corpuscular Hemoglobin 30 PG (27-34); Mean Platelet Volume 10.4 FL (9.6-12.0); Monocytes # 13.3 10*3/uL (0.11-0.8); Monocytes % 8.7 % (1.7-12.7); NRBC # 0.02 10*3/uL; Neutrophils % 0.7 % (38.7-73.9); Platelet Count 81 T/CUMM (130-400); Red Cell Distribution Width 18.2 % (9.3-17.3)
[2017-10-18 05:12] LABS: Red Blood Count 3.03 MC/CUMM (3.8-5.5)
[2017-10-18 05:42] LABS: Atypical Lymphocytes Few; Lymphocytes 98 % (20-55); Macrocytosis 3+; Platelet Estimate Decreased; Segmented Neutrophils 1 % (50-85); Smudge Cells 2+; Total Cells Counted 100
[2017-10-18 05:45] LABS: Albumin 2.8 G/DL (3.4-5.0); Bilirubin,Total 1.1 MG/DL (0.2-1.0); Calcium 7.5 MG/DL (8.5-10.1); Osmolality,Calculated 279.4 MOS/KG (273-304); Potassium 3.5 MMOL/L (3.5-5.1)
[2017-10-18] MEDS: LEVOTHYROXINE 125 MCG TABLET PO SCH (06:11)
[2017-10-18] MEDS: hydrALAZINE 25 MG TABLET PO SCH ×2 (08:51→20:22)
[2017-10-18] MEDS: DOCUSATE SODIUM 100 MG CAPSULE PO SCH ×2 (08:52→20:22)
[2017-10-18] MEDS: PANTOPRAZOLE 40 MG TABLET PO SCH (08:52)
[2017-10-18] MEDS: INSULIN LISPRO 100 UNIT/ML SUBCUT SCH ×4 (08:52→21:07)
[2017-10-18] MEDS: predniSONE 20 MG TABLET PO SCH (08:52)
[2017-10-18] MEDS: FILGRASTIM-SNDZ 300 MCG/0.5 ML SYRINGE SUBCUT SCH (08:52)
[2017-10-18] MEDS: DEXT 5% NACL 0.45% KCL 20 MEQ 20 MEQ/1,000 ML BAG IV SCH (21:52)
[2017-10-19] MEDS: ALBUTEROL/IPRATROPIUM 3 ML NEB RESP TX SCH ×4 (00:06→19:18)
[2017-10-19] MEDS: PIPERACILLIN/TAZOBACTAM 3,375 MG in SODIUM CHLORIDE 0.9% 100 ML IV SCH (01:41)
[2017-10-19 05:16] LABS: Basophils # 0.1 10*3/uL (0.0-0.2); Hemoglobin 8.7 GM/DL (12.0-16.0); Immature Granulocytes % 0.1 %; Lymphocytes # 127.4 10*3/uL (1.4-4.0); Lymphocytes % 93.6 % (21.3-54.2); Mean Corpuscular Hemoglobin 30 PG (27-34); Mean Corpuscular Volume 101.4 FL (87-102); Mean Platelet Volume 10.7 FL (9.6-12.0); Monocytes # 7.5 10*3/uL (0.11-0.8); Monocytes % 5.5 % (1.7-12.7); Neutrophils # 1.1 10*3/uL (1.4-7.4); Neutrophils % 0.8 % (38.7-73.9); Platelet Count 69 T/CUMM (130-400); Red Blood Count 2.86 MC/CUMM (3.8-5.5); Red Cell Distribution Width 17.9 % (9.3-17.3)
[2017-10-19 05:22] LABS: White Blood Count 136.2 T/CUMM (4-12)
[2017-10-19] MEDS: DEXT 5% NACL 0.45% KCL 20 MEQ 20 MEQ/1,000 ML BAG IV SCH ×2 (05:42→15:11)
[2017-10-19 05:44] LABS: Atypical Lymphocytes Few; Giant Platelets Few; Hypochromasia 1+; Lymphocytes 94 % (20-55); Platelet Estimate Decreased; Segmented Neutrophils 4 % (50-85); Smudge Cells Moderate; Total Cells Counted 100
[2017-10-19 05:45] LABS: Microcytosis Slight
[2017-10-19] MEDS: LEVOTHYROXINE 125 MCG TABLET PO SCH (06:14)
[2017-10-19] MEDS: FILGRASTIM-SNDZ 300 MCG/0.5 ML SYRINGE SUBCUT SCH (08:33)
[2017-10-19] MEDS: PANTOPRAZOLE 40 MG TABLET PO SCH (08:33)
[2017-10-19] MEDS: DOCUSATE SODIUM 100 MG CAPSULE PO SCH ×2 (08:33→20:59)
[2017-10-19] MEDS: hydrALAZINE 25 MG TABLET PO SCH ×2 (08:33→20:59)
[2017-10-19 09:43] LABS: Albumin 3.1 G/DL (3.4-5.0); Bilirubin,Total 0.8 MG/DL (0.2-1.0); Potassium 3.7 MMOL/L (3.5-5.1); Total Protein 5.3 G/DL (6.4-8.3)
[2017-10-19] MEDS: INSULIN LISPRO 100 UNIT/ML SUBCUT SCH ×4 (10:17→20:57)
[2017-10-19] MEDS: BENZONATATE 100 MG CAPSULE PO PRN (20:58)
[2017-10-20] MEDS: ALBUTEROL/IPRATROPIUM 3 ML NEB RESP TX SCH ×3 (01:17→07:30)
[2017-10-20 05:09] LABS: Basophils # 0.1 10*3/uL (0.0-0.2); Eosinophils # 0.1 10*3/uL (0.0-0.87); Eosinophils % 0.1 % (0.00-10.9); Hematocrit 31.3 VOL% (35.7-47.0); Hemoglobin 9.4 GM/DL (12.0-16.0); Immature Granulocytes % 0.1 %; Immature Granulocytes Absolute 0.14 #; Lymphocytes # 152.8 10*3/uL (1.4-4.0); Mean Corpuscular Hemoglobin 31 PG (27-34); Mean Corpuscular Volume 102.3 FL (87-102); Monocytes # 16.6 10*3/uL (0.11-0.8); Monocytes % 9.7 % (1.7-12.7); NRBC # 0.02 10*3/uL; Neutrophils # 1.9 10*3/uL (1.4-7.4); Neutrophils % 1.1 % (38.7-73.9); Platelet Count 82 T/CUMM (130-400); Red Blood Count 3.06 MC/CUMM (3.8-5.5); Red Cell Distribution Width 17.7 % (9.3-17.3)
[2017-10-20 05:17] LABS: White Blood Count 171.6 T/CUMM (4-12)
[2017-10-20] MEDS: DEXT 5% NACL 0.45% KCL 20 MEQ 20 MEQ/1,000 ML BAG IV SCH (05:21)
[2017-10-20 05:33] LABS: Atypical Lymphocytes Few; Hypochromasia 1+; Lymphocytes 95 % (20-55); Ovalocytes Slight; Platelet Estimate Decreased; Segmented Neutrophils 4 % (50-85); Smudge Cells Moderate; Total Cells Counted 100
[2017-10-20 05:34] LABS: Microcytosis Slight
[2017-10-20 05:43] LABS: Bilirubin,Total 1.1 MG/DL (0.2-1.0); Osmolality,Calculated 282.3 MOS/KG (273-304); Potassium 4.1 MMOL/L (3.5-5.1); Total Protein 5.3 G/DL (6.4-8.3)
[2017-10-20] MEDS: LEVOTHYROXINE 125 MCG TABLET PO SCH (06:13)
[2017-10-20 07:49] VITALS: BP 147/71
[2017-10-20] MEDS: INSULIN LISPRO 100 UNIT/ML SUBCUT SCH (07:53)
[2017-10-20] MEDS: hydrALAZINE 25 MG TABLET PO SCH (08:56)
[2017-10-20] MEDS: PANTOPRAZOLE 40 MG TABLET PO SCH (08:56)
[2017-10-20] MEDS: DOCUSATE SODIUM 100 MG CAPSULE PO SCH (08:56)
[2017-10-20] MEDS: predniSONE 20 MG TABLET PO SCH (08:56)
[2017-10-20] MEDS ORDERED: HEPARIN LOCK FLUSH 500 UNIT/5 ML SYRINGE IV PRN (08:59)
== END 2017-10-20 10:37 | disposition home or self-care (01) | DRG 842 ==
LOC: N.4E 11:38
PROVIDERS: ADMIT Internal Medicine; ATTEND Internal Medicine

== ENCOUNTER 2017-12-09 16:17 | Inpatient (IN) ==
[2017-12-09] MEDS ORDERED: SODIUM CHLORIDE 0.9% 500 ML IV STA (16:52)
[2017-12-09] MEDS ORDERED: PIPERACILLIN/TAZOBACTAM 3,375 MG in SODIUM CHLORIDE 0.9% 100 ML IV STA (16:52)
[2017-12-09] MEDS ORDERED: PIPERACILLIN/TAZOBACTAM 3,375 MG VIAL IV ONE (17:29)
[2017-12-09] MEDS ORDERED: SODIUM CHLORIDE 0.9% 100 ML IV ONE (17:30)
[2017-12-09 17:44] LABS: Hematocrit 27.2 VOL% (35.7-47.0); Hemoglobin 8.4 GM/DL (12.0-16.0); Immature Granulocytes % 0.6 %; Immature Granulocytes Absolute 0.82 #; Lymphocytes # 119.9 10*3/uL (1.4-4.0); Lymphocytes % 92.2 % (21.3-54.2); Mean Corpuscular HGB Conc 30.9 GM/DL (32-36); Mean Corpuscular Hemoglobin 32 PG (27-34); Mean Corpuscular Volume 103.4 FL (87-102); Mean Platelet Volume 10.7 FL (9.6-12.0); Monocytes # 8.1 10*3/uL (0.11-0.8); Monocytes % 6.3 % (1.7-12.7); NRBC # 0.02 10*3/uL; Neutrophils # 1.1 10*3/uL (1.4-7.4); Neutrophils % 0.9 % (38.7-73.9); Platelet Count 103 T/CUMM (130-400); Red Blood Count 2.63 MC/CUMM (3.8-5.5); Red Cell Distribution Width 18.6 % (9.3-17.3)
[2017-12-09 17:55] LABS: INR 1.1; PT Patient Result 11.2 SECS
[2017-12-09 18:07] LABS: Lactic Acid 1.5 MMOL/L (0.4-2.0)
[2017-12-09 18:18] LABS: Bilirubin,Total 2.1 MG/DL (0.2-1.0); Calcium 7.4 MG/DL (8.5-10.1); Osmolality,Calculated 271.4 MOS/KG (273-304); Total Protein 5.5 G/DL (6.4-8.3)
[2017-12-09 18:21] LABS: Anisocytosis 1+; Hypochromasia Slight; Lymphocytes 94 % (20-55); Macrocytosis 1+; Platelet Estimate Decreased; Segmented Neutrophils 2 % (50-85); Smudge Cells Many; Total Cells Counted 100
[2017-12-09] MEDS ORDERED: ACETAMINOPHEN 500 MG TABLET ONE (19:10)
[2017-12-09] MEDS ORDERED: ACETAMINOPHEN 500 MG TABLET PO STA (19:21)
[2017-12-09 19:55] LABS: Sedimentation Rate-Westergren 90 MM/HR (0-30)
[2017-12-09 20:12] LABS: Apearance,Urine CLOUDY (Clear); Bacteria,Urine Occasional /HPF (Few); Bilirubin,Urine Negative (Negative); Blood, Urine Negative (Negative); Glucose,Urine (UA) 50 mg/dL (Negative); Hyaline Casts,Urine 3 /LPF (0-3); Ketones,Urine Negative (Negative); Mucus,Urine Occasional /LPF (Occasional); Nitrite,Urine Negative (Negative); Protein,Urine 100 MG/DL; RBC,Urine 1 /HPF (0-4); Urine Color Dark yellow (Yellow); WBC,Urine 1 /HPF (0-6)
[2017-12-09] MEDS ORDERED: ONDANSETRON 4 MG/2 ML VIAL IV PRN (20:42)
[2017-12-09] MEDS ORDERED: GLUCAGON 1 MG VIAL IM PRN (20:42)
[2017-12-09] MEDS ORDERED: MORPHINE 4 MG/1 ML VIAL IV PRN (20:42)
[2017-12-09] MEDS ORDERED: DEXTROSE 50% 25 GM/50 ML VIAL IV PRN (20:42)
[2017-12-09] MEDS ORDERED: CYANOCOBALAMIN 1000 MCG/1 ML VIAL IM SCH (21:00)
[2017-12-09] MEDS: DOCUSATE SODIUM 100 MG CAPSULE PO SCH (21:19)
[2017-12-09] MEDS: ACYCLOVIR 800 MG TABLET PO SCH (21:19)
[2017-12-09] MEDS: hydrALAZINE 25 MG TABLET PO SCH (21:19)
[2017-12-09] MEDS: ERGOCALCIFEROL 50,000 UNIT CAPSULE PO SCH (21:19)
[2017-12-09] MEDS: PIPERACILLIN/TAZOBACTAM 3,375 MG in SODIUM CHLORIDE 0.9% 100 ML IV SCH (21:20)
[2017-12-09] MEDS: INSULIN REGULAR 100 UNIT/ML SUBCUT SCH (21:20)
[2017-12-09] MEDS: SODIUM CHLORIDE 0.9% 1,000 ML IV SCH (21:20)
[2017-12-10] MEDS ORDERED: PHENIRAMINE BOTH EYES SCH
[2017-12-10] MEDS ORDERED: NAPHAZOLINE HCL BOTH EYES SCH
[2017-12-10] MEDS: PIPERACILLIN/TAZOBACTAM 3,375 MG in SODIUM CHLORIDE 0.9% 100 ML IV SCH (05:13)
[2017-12-10] MEDS: SODIUM CHLORIDE 0.9% 1,000 ML IV SCH ×3 (05:14→22:01)
[2017-12-10] MEDS: LEVOTHYROXINE 125 MCG TABLET PO SCH (06:12)
[2017-12-10 07:31] LABS: Hematocrit 24.7 VOL% (35.7-47.0); Hemoglobin 7.6 GM/DL (12.0-16.0); Immature Granulocytes % 0.7 %; Immature Granulocytes Absolute 0.69 #; Lymphocytes # 91.4 10*3/uL (1.4-4.0); Lymphocytes % 92.5 % (21.3-54.2); Mean Corpuscular HGB Conc 30.8 GM/DL (32-36); Mean Corpuscular Hemoglobin 32 PG (27-34); Mean Corpuscular Volume 103.8 FL (87-102); Mean Platelet Volume 11.1 FL (9.6-12.0); Monocytes # 5.9 10*3/uL (0.11-0.8); Neutrophils # 0.8 10*3/uL (1.4-7.4); Neutrophils % 0.8 % (38.7-73.9); Platelet Count 84 T/CUMM (130-400); Red Blood Count 2.38 MC/CUMM (3.8-5.5); Red Cell Distribution Width 18.3 % (9.3-17.3)
[2017-12-10 07:35] LABS: White Blood Count 98.8 T/CUMM (4-12)
[2017-12-10 07:57] LABS: Albumin 2.4 G/DL (3.4-5.0); Bilirubin,Total 1.5 MG/DL (0.2-1.0); Calcium 7.5 MG/DL (8.5-10.1); Osmolality,Calculated 273.7 MOS/KG (273-304); Potassium 3.7 MMOL/L (3.5-5.1); Total Protein 5.2 G/DL (6.4-8.3)
[2017-12-10] MEDS: INSULIN REGULAR 100 UNIT/ML SUBCUT SCH ×4 (08:00→22:01)
[2017-12-10 08:02] LABS: Atypical Lymphocytes Few; Hypochromasia 1+; Lymphocytes 99 % (20-55); Smudge Cells Moderate; Total Cells Counted 100
[2017-12-10 08:03] LABS: Macrocytosis 1+; Ovalocytes Slight; Platelet Estimate Decreased
[2017-12-10] MEDS ORDERED: SODIUM CHLORIDE 0.9% 1,000 ML IV PRN (08:51)
[2017-12-10] MEDS ORDERED: GLIMEPIRIDE 2 MG TABLET PO SCH (09:00)
[2017-12-10] MEDS: ACYCLOVIR 800 MG TABLET PO SCH ×2 (09:42→20:31)
[2017-12-10] MEDS: DOCUSATE SODIUM 100 MG CAPSULE PO SCH ×2 (09:42→20:31)
[2017-12-10] MEDS: hydrALAZINE 25 MG TABLET PO SCH ×2 (09:43→20:31)
[2017-12-10] MEDS: PANTOPRAZOLE 40 MG TABLET PO SCH (09:43)
[2017-12-10] MEDS: MEROPENEM 1,000 MG in SYRINGE 1 EACH IV SCH ×2 (09:44→20:31)
[2017-12-10] MEDS ORDERED: IMMUNE GLOBULIN 10% 20 GM, IMMUNE GLOBULIN 10% 10 GM in PREMIX 1 EACH IV ONE (10:00)
[2017-12-10] MEDS: VANCOMYCIN INJ 1,000 MG in SODIUM CHLORIDE 0.9% 250 ML IV SCH (12:58)
[2017-12-10] MEDS: ZINC OXIDE PASTE 113 GM TUBE TOP SCH (20:32)
[2017-12-11] MEDS: VANCOMYCIN INJ 1,000 MG in SODIUM CHLORIDE 0.9% 250 ML IV SCH ×2 (00:17→16:30)
[2017-12-11] MEDS: MEROPENEM 1,000 MG in SYRINGE 1 EACH IV SCH ×2 (04:24→16:18)
[2017-12-11 04:57] LABS: Basophils # 0.1 10*3/uL (0.0-0.2); Basophils % 0.1 % (0.0-0.8); Hemoglobin 6.7 GM/DL (12.0-16.0); Immature Granulocytes % 0.2 %; Immature Granulocytes Absolute 0.17 #; Lymphocytes % 91.8 % (21.3-54.2); Mean Corpuscular HGB Conc 30.5 GM/DL (32-36); Mean Corpuscular Hemoglobin 32 PG (27-34); Mean Corpuscular Volume 105.3 FL (87-102); Mean Platelet Volume 11.2 FL (9.6-12.0); Monocytes # 6.2 10*3/uL (0.11-0.8); Monocytes % 6.6 % (1.7-12.7); Neutrophils # 1.2 10*3/uL (1.4-7.4); Neutrophils % 1.3 % (38.7-73.9); Platelet Count 83 T/CUMM (130-400); Red Blood Count 2.09 MC/CUMM (3.8-5.5); Red Cell Distribution Width 18.1 % (9.3-17.3)
[2017-12-11 05:13] LABS: White Blood Count 93.6 T/CUMM (4-12)
[2017-12-11 05:29] LABS: Albumin 2.1 G/DL (3.4-5.0); Bilirubin,Total 1.3 MG/DL (0.2-1.0); Calcium 7.2 MG/DL (8.5-10.1); Osmolality,Calculated 269.8 MOS/KG (273-304); Potassium 3.1 MMOL/L (3.5-5.1); Total Protein 5.6 G/DL (6.4-8.3)
[2017-12-11] MEDS ORDERED: SODIUM CHLORIDE 0.9% 1,000 ML IV PRN ×2 (05:58→07:44)
[2017-12-11] MEDS: LEVOTHYROXINE 125 MCG TABLET PO SCH (06:21)
[2017-12-11] MEDS ORDERED: POTASSIUM CHLORIDE RIDER 10 MEQ in PREMIX 1 EACH IV PRN (06:51)
[2017-12-11] MEDS ORDERED: POTASSIUM CHLORIDE RIDER 20 MEQ in PREMIX 1 EACH IV PRN (06:51)
[2017-12-11 07:53] LABS: Atypical Lymphocytes Many; Band Neutrophils 2 % (0-10); Lymphocytes 97 % (20-55); Platelet Estimate Decreased; Polychromasia Slight; Segmented Neutrophils 1 % (50-85); Smudge Cells Moderate; Total Cells Counted 100
[2017-12-11] MEDS: INSULIN REGULAR 100 UNIT/ML SUBCUT SCH ×4 (09:28→21:12)
[2017-12-11] MEDS: hydrALAZINE 25 MG TABLET PO SCH ×2 (09:28→21:13)
[2017-12-11] MEDS: ACYCLOVIR 800 MG TABLET PO SCH ×2 (09:29→20:57)
[2017-12-11] MEDS: predniSONE 20 MG TABLET PO SCH (09:29)
[2017-12-11] MEDS: PANTOPRAZOLE 40 MG TABLET PO SCH (09:29)
[2017-12-11] MEDS: DOCUSATE SODIUM 100 MG CAPSULE PO SCH ×2 (09:29→20:57)
[2017-12-11] MEDS: FILGRASTIM-SNDZ 300 MCG/0.5 ML SYRINGE SUBCUT SCH (10:42)
[2017-12-11] MEDS: ZINC OXIDE PASTE 113 GM TUBE TOP SCH ×2 (10:42→20:57)
[2017-12-11] MEDS ORDERED: DEXTROSE 50% 25 GM/50 ML VIAL IV ONE ×2 (12:57→13:08)
[2017-12-11] MEDS: SODIUM CHLORIDE 0.9% 1,000 ML IV SCH (13:26)
[2017-12-11] MEDS ORDERED: fentaNYL 100 MCG/2 ML VIAL ONE (14:01)
[2017-12-11] MEDS ORDERED: MIDAZOLAM 2 MG/2 ML VIAL ONE (14:01)
[2017-12-11] MEDS ORDERED: HYDROCORTISONE 100 MG VIAL ONE (14:01)
[2017-12-11] MEDS ORDERED: PROPOFOL 200 MG/20 ML VIAL IV ONE (14:01)
[2017-12-11] MEDS ORDERED: ONDANSETRON 4 MG/2 ML VIAL ONE ×2 (14:01→14:34)
[2017-12-11] MEDS ORDERED: SEVOFLURANE 1 UNIT/15 MINUTE INH ONE (14:01)
[2017-12-11] MEDS ORDERED: ONDANSETRON 4 MG/2 ML VIAL IV PRN (14:11)
[2017-12-11] MEDS ORDERED: MORPHINE 10 MG/1 ML VIAL ONE (14:34)
[2017-12-11] MEDS: MORPHINE 10 MG/1 ML VIAL IV PRN ×3 (14:40→15:01)
[2017-12-12] MEDS: MEROPENEM 1,000 MG in SYRINGE 1 EACH IV SCH ×4 (00:16→23:40)
[2017-12-12] MEDS: VANCOMYCIN INJ 1,000 MG in SODIUM CHLORIDE 0.9% 250 ML IV SCH ×2 (04:27→16:56)
[2017-12-12 05:33] LABS: Basophils # 0.1 10*3/uL (0.0-0.2); Basophils % 0.1 % (0.0-0.8); Hematocrit 27.9 VOL% (35.7-47.0); Hemoglobin 8.9 GM/DL (12.0-16.0); Immature Granulocytes % 0.8 %; Immature Granulocytes Absolute 0.73 #; Lymphocytes # 89.6 10*3/uL (1.4-4.0); Lymphocytes % 94.1 % (21.3-54.2); Mean Corpuscular HGB Conc 31.9 GM/DL (32-36); Mean Corpuscular Hemoglobin 31 PG (27-34); Mean Corpuscular Volume 98.2 FL (87-102); Mean Platelet Volume 11.6 FL (9.6-12.0); Monocytes # 3.9 10*3/uL (0.11-0.8); Monocytes % 4.1 % (1.7-12.7); Neutrophils % 0.9 % (38.7-73.9); Platelet Count 71 T/CUMM (130-400); Red Blood Count 2.84 MC/CUMM (3.8-5.5); Red Cell Distribution Width 18.8 % (9.3-17.3)
[2017-12-12 05:37] LABS: White Blood Count 95.2 T/CUMM (4-12)
[2017-12-12] MEDS: LEVOTHYROXINE 125 MCG TABLET PO SCH (06:10)
[2017-12-12 06:19] LABS: Albumin 2.1 G/DL (3.4-5.0); Calcium 7.4 MG/DL (8.5-10.1); Osmolality,Calculated 289.5 MOS/KG (273-304); Potassium 3.5 MMOL/L (3.5-5.1); Total Protein 5.5 G/DL (6.4-8.3)
[2017-12-12 06:40] LABS: Atypical Lymphocytes Moderate; Lymphocytes 94 % (20-55); Segmented Neutrophils 5 % (50-85); Smudge Cells Moderate; Total Cells Counted 100
[2017-12-12 06:41] LABS: Anisocytosis 1+; Macrocytosis 1+; Ovalocytes Slight; Platelet Estimate Decreased
[2017-12-12] MEDS ORDERED: SODIUM CHLORIDE 0.9% 1,000 ML IV PRN (06:45)
[2017-12-12] MEDS: INSULIN REGULAR 100 UNIT/ML SUBCUT SCH ×4 (08:45→20:53)
[2017-12-12] MEDS: DEXT 5% NACL 0.9% KCL 20 MEQ 20 MEQ/1,000 ML BAG IV SCH (09:15)
[2017-12-12] MEDS: FILGRASTIM-SNDZ 300 MCG/0.5 ML SYRINGE SUBCUT SCH (09:28)
[2017-12-12] MEDS: hydrALAZINE 25 MG TABLET PO SCH ×2 (09:28→20:54)
[2017-12-12] MEDS: ACYCLOVIR 800 MG TABLET PO SCH ×2 (09:29→20:53)
[2017-12-12] MEDS: DOCUSATE SODIUM 100 MG CAPSULE PO SCH ×3 (09:29→20:53)
[2017-12-12] MEDS: PANTOPRAZOLE 40 MG TABLET PO SCH (09:29)
[2017-12-12] MEDS: ZINC OXIDE PASTE 113 GM TUBE TOP SCH ×2 (09:35→20:55)
[2017-12-12] MEDS: SODIUM CHLORIDE 0.9% 1,000 ML IV SCH (16:46)
[2017-12-13] MEDS: ACETAMINOPHEN 325 MG TABLET PO PRN (01:22)
[2017-12-13] MEDS: VANCOMYCIN INJ 1,000 MG in SODIUM CHLORIDE 0.9% 250 ML IV SCH ×2 (03:53→17:24)
[2017-12-13 05:44] LABS: Hematocrit 36.3 VOL% (35.7-47.0); Hemoglobin 11.5 GM/DL (12.0-16.0); Immature Granulocytes % 0.3 %; Immature Granulocytes Absolute 0.34 #; Lymphocytes # 101.1 10*3/uL (1.4-4.0); Lymphocytes % 90.8 % (21.3-54.2); Mean Corpuscular HGB Conc 31.7 GM/DL (32-36); Mean Corpuscular Hemoglobin 31 PG (27-34); Mean Corpuscular Volume 97.3 FL (87-102); Mean Platelet Volume 11.2 FL (9.6-12.0); Monocytes # 8.9 10*3/uL (0.11-0.8); NRBC # 0.03 10*3/uL; Neutrophils # 0.9 10*3/uL (1.4-7.4); Neutrophils % 0.9 % (38.7-73.9); Platelet Count 79 T/CUMM (130-400); Red Blood Count 3.73 MC/CUMM (3.8-5.5); Red Cell Distribution Width 19.7 % (9.3-17.3)
[2017-12-13 05:52] LABS: White Blood Count 111.2 T/CUMM (4-12)
[2017-12-13] MEDS: LEVOTHYROXINE 125 MCG TABLET PO SCH (06:06)
[2017-12-13 06:18] LABS: Albumin 2.4 G/DL (3.4-5.0); Bilirubin,Total 1.3 MG/DL (0.2-1.0); Calcium 7.6 MG/DL (8.5-10.1); Osmolality,Calculated 287.7 MOS/KG (273-304); Potassium 3.6 MMOL/L (3.5-5.1); Total Protein 5.7 G/DL (6.4-8.3)
[2017-12-13] MEDS: DEXT 5% NACL 0.9% KCL 20 MEQ 20 MEQ/1,000 ML BAG IV SCH ×2 (06:41→21:48)
[2017-12-13 06:43] LABS: Atypical Lymphocytes Moderate; Eosinophils 1 % (0-10); Lymphocytes 95 % (20-55); Segmented Neutrophils 2 % (50-85); Smudge Cells Many; Total Cells Counted 100
[2017-12-13 06:44] LABS: Anisocytosis 1+; Hypochromasia 1+; Macrocytosis 1+; Ovalocytes Slight
[2017-12-13 06:45] LABS: Platelet Estimate Decreased
[2017-12-13] MEDS: INSULIN REGULAR 100 UNIT/ML SUBCUT SCH ×4 (07:58→21:46)
[2017-12-13] MEDS: PANTOPRAZOLE 40 MG TABLET PO SCH (09:24)
[2017-12-13] MEDS: FILGRASTIM-SNDZ 300 MCG/0.5 ML SYRINGE SUBCUT SCH (09:24)
[2017-12-13] MEDS: predniSONE 20 MG TABLET PO SCH (09:24)
[2017-12-13] MEDS: hydrALAZINE 25 MG TABLET PO SCH ×2 (09:24→21:45)
[2017-12-13] MEDS: MEROPENEM 1,000 MG in SYRINGE 1 EACH IV SCH ×2 (09:24→17:23)
[2017-12-13] MEDS: ACYCLOVIR 800 MG TABLET PO SCH ×2 (09:24→21:45)
[2017-12-13] MEDS: DOCUSATE SODIUM 100 MG CAPSULE PO SCH ×3 (09:24→23:13)
[2017-12-13] MEDS: ZINC OXIDE PASTE 113 GM TUBE TOP SCH (19:40)
[2017-12-14] MEDS: MEROPENEM 1,000 MG in SYRINGE 1 EACH IV SCH ×3 (01:29→17:00)
[2017-12-14] MEDS: ZINC OXIDE PASTE 113 GM TUBE TOP SCH ×3 (01:33→20:35)
[2017-12-14] MEDS: VANCOMYCIN INJ 1,000 MG in SODIUM CHLORIDE 0.9% 250 ML IV SCH ×2 (04:15→17:00)
[2017-12-14 05:44] LABS: Hematocrit 33.7 VOL% (35.7-47.0); Hemoglobin 11.1 GM/DL (12.0-16.0); Immature Granulocytes % 0.1 %; Immature Granulocytes Absolute 0.06 #; Lymphocytes # 89.1 10*3/uL (1.4-4.0); Lymphocytes % 92.8 % (21.3-54.2); Mean Corpuscular HGB Conc 32.9 GM/DL (32-36); Mean Corpuscular Hemoglobin 32 PG (27-34); Mean Corpuscular Volume 96.3 FL (87-102); Mean Platelet Volume 11.6 FL (9.6-12.0); Monocytes # 5.5 10*3/uL (0.11-0.8); Monocytes % 5.8 % (1.7-12.7); NRBC # 0.05 10*3/uL; Neutrophils # 1.3 10*3/uL (1.4-7.4); Neutrophils % 1.3 % (38.7-73.9); Platelet Count 64 T/CUMM (130-400); Red Cell Distribution Width 18.7 % (9.3-17.3)
[2017-12-14 05:48] LABS: White Blood Count 96.1 T/CUMM (4-12)
[2017-12-14 06:21] LABS: Albumin 2.4 G/DL (3.4-5.0); Bilirubin,Total 0.9 MG/DL (0.2-1.0); Calcium 7.8 MG/DL (8.5-10.1); Osmolality,Calculated 288.7 MOS/KG (273-304); Potassium 3.8 MMOL/L (3.5-5.1); Total Protein 5.4 G/DL (6.4-8.3)
[2017-12-14 06:31] LABS: Band Neutrophils 1 % (0-10); Lymphocytes 90 % (20-55); Myelocytes 5 %; Segmented Neutrophils 4 % (50-85); Total Cells Counted 100
[2017-12-14 06:34] LABS: Anisocytosis 1+; Ovalocytes Few; Smudge Cells Many
[2017-12-14 06:35] LABS: Platelet Estimate Decreased
[2017-12-14] MEDS: DEXT 5% NACL 0.9% KCL 20 MEQ 20 MEQ/1,000 ML BAG IV SCH ×2 (07:42→13:26)
[2017-12-14] MEDS: FILGRASTIM-SNDZ 300 MCG/0.5 ML SYRINGE SUBCUT SCH (08:27)
[2017-12-14] MEDS: DOCUSATE SODIUM 100 MG CAPSULE PO SCH ×2 (08:27→20:34)
[2017-12-14] MEDS: hydrALAZINE 25 MG TABLET PO SCH ×2 (08:27→20:34)
[2017-12-14] MEDS: ACYCLOVIR 800 MG TABLET PO SCH ×2 (08:27→20:34)
[2017-12-14] MEDS: PANTOPRAZOLE 40 MG TABLET PO SCH (08:27)
[2017-12-14] MEDS: INSULIN REGULAR 100 UNIT/ML SUBCUT SCH ×4 (08:28→20:33)
[2017-12-14] MEDS: LEVOTHYROXINE 125 MCG TABLET PO SCH (08:28)
[2017-12-15] MEDS: MEROPENEM 1,000 MG in SYRINGE 1 EACH IV SCH ×3 (00:28→16:27)
[2017-12-15] MEDS: DEXT 5% NACL 0.9% KCL 20 MEQ 20 MEQ/1,000 ML BAG IV SCH ×3 (03:57→21:52)
[2017-12-15] MEDS: VANCOMYCIN INJ 1,000 MG in SODIUM CHLORIDE 0.9% 250 ML IV SCH ×2 (03:58→16:27)
[2017-12-15 05:00] LABS: Hemoglobin 11.5 GM/DL (12.0-16.0); Immature Granulocytes % 0.1 %; Lymphocytes # 100.1 10*3/uL (1.4-4.0); Lymphocytes % 91.2 % (21.3-54.2); Mean Corpuscular HGB Conc 31.9 GM/DL (32-36); Mean Corpuscular Hemoglobin 31 PG (27-34); Mean Corpuscular Volume 98.4 FL (87-102); Mean Platelet Volume 11.3 FL (9.6-12.0); Monocytes # 7.7 10*3/uL (0.11-0.8); NRBC # 0.05 10*3/uL; Neutrophils # 1.8 10*3/uL (1.4-7.4); Neutrophils % 1.7 % (38.7-73.9); Platelet Count 63 T/CUMM (130-400); Red Blood Count 3.66 MC/CUMM (3.8-5.5)
[2017-12-15 05:05] LABS: White Blood Count 109.7 T/CUMM (4-12)
[2017-12-15 05:17] LABS: Albumin 2.5 G/DL (3.4-5.0); Bilirubin,Total 1.1 MG/DL (0.2-1.0); Calcium 7.9 MG/DL (8.5-10.1); Osmolality,Calculated 294.3 MOS/KG (273-304); Potassium 3.7 MMOL/L (3.5-5.1); Total Protein 5.2 G/DL (6.4-8.3)
[2017-12-15 06:17] LABS: Lymphocytes 90 % (20-55); Segmented Neutrophils 9 % (50-85); Total Cells Counted 100
[2017-12-15 06:18] LABS: Atypical Lymphocytes Moderate; Hypochromasia 1+; Macrocytosis 1+; Smudge Cells Many
[2017-12-15 06:19] LABS: Ovalocytes Slight; Platelet Estimate Decreased
[2017-12-15] MEDS: LEVOTHYROXINE 125 MCG TABLET PO SCH (07:09)
[2017-12-15] MEDS: INSULIN REGULAR 100 UNIT/ML SUBCUT SCH ×4 (08:58→20:23)
[2017-12-15] MEDS: predniSONE 20 MG TABLET PO SCH (08:58)
[2017-12-15] MEDS: PANTOPRAZOLE 40 MG TABLET PO SCH (08:58)
[2017-12-15] MEDS: ACYCLOVIR 800 MG TABLET PO SCH ×2 (08:58→20:24)
[2017-12-15] MEDS: DOCUSATE SODIUM 100 MG CAPSULE PO SCH ×2 (08:59→20:24)
[2017-12-15] MEDS: hydrALAZINE 25 MG TABLET PO SCH ×2 (08:59→20:24)
[2017-12-15] MEDS: ZINC OXIDE PASTE 113 GM TUBE TOP SCH ×2 (08:59→20:24)
[2017-12-15] MEDS: FILGRASTIM-SNDZ 300 MCG/0.5 ML SYRINGE SUBCUT SCH (08:59)
[2017-12-15 11:20] LABS: Apearance,Urine CLEAR (Clear); Bilirubin,Urine Negative (Negative); Glucose,Urine (UA) 50 mg/dL (Negative); Ketones,Urine Negative (Negative); Nitrite,Urine Negative (Negative); Protein,Urine Negative; Urine Color Straw (Yellow); Urine Specific Gravity 1.009 (1.001-1.035)
[2017-12-15 11:21] LABS: Blood, Urine Negative (Negative); Mucus,Urine Occasional /LPF (Occasional); RBC,Urine <1 /HPF (0-4); Renal Epithelial Cells,Urine Occasional /HPF (<1); Squamous Epithelial Cell,Urine Occasional /HPF (0-10); Urine Urobilinogen < 2.0 EU/DL (0.2-1.0); WBC,Urine <1 /HPF (0-6)
[2017-12-16] MEDS: MEROPENEM 1,000 MG in SYRINGE 1 EACH IV SCH (00:33)
[2017-12-16] MEDS: VANCOMYCIN INJ 1,000 MG in SODIUM CHLORIDE 0.9% 250 ML IV SCH ×2 (04:20→17:51)
[2017-12-16 04:40] LABS: Hematocrit 34.5 VOL% (35.7-47.0); Immature Granulocytes % 0.4 %; Immature Granulocytes Absolute 0.41 #; Lymphocytes # 92.6 10*3/uL (1.4-4.0); Lymphocytes % 91.6 % (21.3-54.2); Mean Corpuscular HGB Conc 31.9 GM/DL (32-36); Mean Corpuscular Hemoglobin 32 PG (27-34); Mean Corpuscular Volume 99.1 FL (87-102); Mean Platelet Volume 11.4 FL (9.6-12.0); Monocytes # 4.9 10*3/uL (0.11-0.8); Monocytes % 4.9 % (1.7-12.7); Neutrophils # 3.1 10*3/uL (1.4-7.4); Neutrophils % 3.1 % (38.7-73.9); Platelet Count 51 T/CUMM (130-400); Red Blood Count 3.48 MC/CUMM (3.8-5.5); Red Cell Distribution Width 18.1 % (9.3-17.3)
[2017-12-16 04:44] LABS: White Blood Count 101.1 T/CUMM (4-12)
[2017-12-16 05:05] LABS: Albumin 2.7 G/DL (3.4-5.0); Bilirubin,Total 0.9 MG/DL (0.2-1.0); Calcium 7.6 MG/DL (8.5-10.1); Osmolality,Calculated 289.6 MOS/KG (273-304); Potassium 3.6 MMOL/L (3.5-5.1); Total Protein 5.2 G/DL (6.4-8.3)
[2017-12-16 05:08] LABS: Atypical Lymphocytes Few; Band Neutrophils 2 % (0-10); Eosinophils 1 % (0-10); Hypochromasia 1+; Lymphocytes 85 % (20-55); Platelet Estimate Decreased; Segmented Neutrophils 12 % (50-85); Smudge Cells Moderate; Total Cells Counted 100
[2017-12-16 05:09] LABS: Macrocytosis Slight; Ovalocytes Slight
[2017-12-16] MEDS: LEVOTHYROXINE 125 MCG TABLET PO SCH (06:53)
[2017-12-16] MEDS: hydrALAZINE 25 MG TABLET PO SCH ×2 (09:38→21:45)
[2017-12-16] MEDS: PANTOPRAZOLE 40 MG TABLET PO SCH (09:38)
[2017-12-16] MEDS: FILGRASTIM-SNDZ 300 MCG/0.5 ML SYRINGE SUBCUT SCH (09:38)
[2017-12-16] MEDS: DOCUSATE SODIUM 100 MG CAPSULE PO SCH ×2 (09:38→21:45)
[2017-12-16] MEDS: ACYCLOVIR 800 MG TABLET PO SCH ×2 (09:38→21:45)
[2017-12-16] MEDS: INSULIN REGULAR 100 UNIT/ML SUBCUT SCH ×4 (09:42→22:45)
[2017-12-16] MEDS: ZINC OXIDE PASTE 113 GM TUBE TOP SCH ×2 (10:02→21:45)
[2017-12-16] MEDS ORDERED: HEPARIN LOCK FLUSH 500 UNIT/5 ML SYRINGE IV ONE (14:39)
[2017-12-16] MEDS: ERGOCALCIFEROL 50,000 UNIT CAPSULE PO SCH (21:45)
[2017-12-16] MEDS: DEXT 5% NACL 0.9% KCL 20 MEQ 20 MEQ/1,000 ML BAG IV SCH (21:51)
[2017-12-17] MEDS: VANCOMYCIN INJ 1,000 MG in SODIUM CHLORIDE 0.9% 250 ML IV SCH ×2 (04:47→15:48)
[2017-12-17 06:09] LABS: Eosinophils # 0.1 10*3/uL (0.0-0.87); Eosinophils % 0.1 % (0.00-10.9); Hematocrit 36.6 VOL% (35.7-47.0); Hemoglobin 11.5 GM/DL (12.0-16.0); Immature Granulocytes % 0.2 %; Immature Granulocytes Absolute 0.28 #; Lymphocytes # 104.8 10*3/uL (1.4-4.0); Mean Corpuscular HGB Conc 31.4 GM/DL (32-36); Mean Corpuscular Hemoglobin 31 PG (27-34); Mean Corpuscular Volume 99.7 FL (87-102); Monocytes # 4.2 10*3/uL (0.11-0.8); Monocytes % 3.7 % (1.7-12.7); Neutrophils # 4.6 10*3/uL (1.4-7.4); Platelet Count 51 T/CUMM (130-400); Red Blood Count 3.67 MC/CUMM (3.8-5.5); Red Cell Distribution Width 18.1 % (9.3-17.3)
[2017-12-17 06:25] LABS: White Blood Count 113.9 T/CUMM (4-12)
[2017-12-17 06:36] LABS: Atypical Lymphocytes Few; Lymphocytes 78 % (20-55); Ovalocytes Slight; Platelet Estimate Decreased; Segmented Neutrophils 21 % (50-85); Smudge Cells Moderate; Total Cells Counted 100
[2017-12-17 06:37] LABS: Macrocytosis Slight
[2017-12-17 06:46] LABS: Albumin 2.7 G/DL (3.4-5.0); Bilirubin,Total 0.9 MG/DL (0.2-1.0); Osmolality,Calculated 289.7 MOS/KG (273-304); Potassium 3.7 MMOL/L (3.5-5.1); Total Protein 5.8 G/DL (6.4-8.3)
[2017-12-17] MEDS: INSULIN REGULAR 100 UNIT/ML SUBCUT SCH ×4 (08:33→20:54)
[2017-12-17] MEDS: LEVOTHYROXINE 125 MCG TABLET PO SCH (08:33)
[2017-12-17] MEDS: PANTOPRAZOLE 40 MG TABLET PO SCH (08:33)
[2017-12-17] MEDS: DOCUSATE SODIUM 100 MG CAPSULE PO SCH ×2 (08:34→20:54)
[2017-12-17] MEDS: ACYCLOVIR 800 MG TABLET PO SCH ×2 (08:34→20:54)
[2017-12-17] MEDS: FILGRASTIM-SNDZ 300 MCG/0.5 ML SYRINGE SUBCUT SCH (08:34)
[2017-12-17] MEDS: predniSONE 20 MG TABLET PO SCH (08:34)
[2017-12-17] MEDS: hydrALAZINE 25 MG TABLET PO SCH ×2 (08:34→20:54)
[2017-12-17] MEDS: ZINC OXIDE PASTE 113 GM TUBE TOP SCH ×2 (17:33→21:18)
[2017-12-18] MEDS: DEXT 5% NACL 0.9% KCL 20 MEQ 20 MEQ/1,000 ML BAG IV SCH (00:35)
[2017-12-18] MEDS: VANCOMYCIN INJ 1,000 MG in SODIUM CHLORIDE 0.9% 250 ML IV SCH ×2 (03:42→16:58)
[2017-12-18 05:44] LABS: Basophils # 0.1 10*3/uL (0.0-0.2); Basophils % 0.1 % (0.0-0.8); Eosinophils # 0.1 10*3/uL (0.0-0.87); Eosinophils % 0.1 % (0.00-10.9); Hematocrit 32.5 VOL% (35.7-47.0); Hemoglobin 10.4 GM/DL (12.0-16.0); Immature Granulocytes % 0.5 %; Immature Granulocytes Absolute 0.52 #; Lymphocytes # 85.9 10*3/uL (1.4-4.0); Lymphocytes % 88.2 % (21.3-54.2); Mean Corpuscular Hemoglobin 32 PG (27-34); Mean Corpuscular Volume 98.5 FL (87-102); Mean Platelet Volume 11.8 FL (9.6-12.0); Monocytes # 6.7 10*3/uL (0.11-0.8); Monocytes % 6.8 % (1.7-12.7); Neutrophils # 4.2 10*3/uL (1.4-7.4); Neutrophils % 4.3 % (38.7-73.9); Red Cell Distribution Width 17.2 % (9.3-17.3)
[2017-12-18 05:52] LABS: White Blood Count 97.4 T/CUMM (4-12)
[2017-12-18 05:53] LABS: Platelet Count 39 T/CUMM (130-400)
[2017-12-18 06:11] LABS: Lymphocytes 80 % (20-55); Platelet Estimate Decreased; Segmented Neutrophils 18 % (50-85); Total Cells Counted 100
[2017-12-18 06:12] LABS: Atypical Lymphocytes Few; Hypochromasia 1+; Macrocytosis Slight; Smudge Cells Moderate
[2017-12-18] MEDS: LEVOTHYROXINE 125 MCG TABLET PO SCH (06:13)
[2017-12-18 06:27] LABS: Albumin 2.9 G/DL (3.4-5.0); Osmolality,Calculated 289.7 MOS/KG (273-304); Potassium 3.3 MMOL/L (3.5-5.1); Total Protein 5.4 G/DL (6.4-8.3)
[2017-12-18] MEDS ORDERED: IMMUNE GLOBULIN 10% 20 GM in PREMIX 1 EACH IV ONE (07:44)
[2017-12-18] MEDS: INSULIN REGULAR 100 UNIT/ML SUBCUT SCH ×4 (07:54→20:32)
[2017-12-18] MEDS: DOCUSATE SODIUM 100 MG CAPSULE PO SCH ×2 (09:12→20:31)
[2017-12-18] MEDS: hydrALAZINE 25 MG TABLET PO SCH ×2 (09:13→20:31)
[2017-12-18] MEDS: ACYCLOVIR 800 MG TABLET PO SCH ×2 (09:14→20:31)
[2017-12-18] MEDS: PANTOPRAZOLE 40 MG TABLET PO SCH (09:14)
[2017-12-18] MEDS: FILGRASTIM-SNDZ 300 MCG/0.5 ML SYRINGE SUBCUT SCH (09:15)
[2017-12-18] MEDS: DEXT 5% NACL 0.45% KCL 40 MEQ 40 MEQ/1,000 ML BAG IV SCH (09:16)
[2017-12-18] MEDS: ZINC OXIDE PASTE 113 GM TUBE TOP SCH ×2 (09:16→20:32)
[2017-12-18] MEDS: ACETAMINOPHEN 325 MG TABLET PO PRN ×2 (14:17→23:26)
[2017-12-19] MEDS: VANCOMYCIN INJ 1,000 MG in SODIUM CHLORIDE 0.9% 250 ML IV SCH ×2 (04:36→16:02)
[2017-12-19 05:22] LABS: Basophils # 0.1 10*3/uL (0.0-0.2); Basophils % 0.1 % (0.0-0.8); Eosinophils # 0.1 10*3/uL (0.0-0.87); Eosinophils % 0.1 % (0.00-10.9); Hematocrit 34.1 VOL% (35.7-47.0); Hemoglobin 10.8 GM/DL (12.0-16.0); Immature Granulocytes % 0.2 %; Immature Granulocytes Absolute 0.21 #; Lymphocytes # 92.5 10*3/uL (1.4-4.0); Lymphocytes % 89.3 % (21.3-54.2); Mean Corpuscular HGB Conc 31.7 GM/DL (32-36); Mean Corpuscular Hemoglobin 31 PG (27-34); Mean Corpuscular Volume 99.1 FL (87-102); Mean Platelet Volume 11.6 FL (9.6-12.0); Monocytes # 6.4 10*3/uL (0.11-0.8); Monocytes % 6.1 % (1.7-12.7); Neutrophils # 4.4 10*3/uL (1.4-7.4); Neutrophils % 4.2 % (38.7-73.9); Platelet Count 42 T/CUMM (130-400); Red Blood Count 3.44 MC/CUMM (3.8-5.5); Red Cell Distribution Width 17.4 % (9.3-17.3)
[2017-12-19 05:24] LABS: White Blood Count 103.6 T/CUMM (4-12)
[2017-12-19 05:52] LABS: Albumin 2.7 G/DL (3.4-5.0); Bilirubin,Total 0.8 MG/DL (0.2-1.0); Calcium 8.1 MG/DL (8.5-10.1); Osmolality,Calculated 286.1 MOS/KG (273-304); Potassium 4.5 MMOL/L (3.5-5.1)
[2017-12-19] MEDS: LEVOTHYROXINE 125 MCG TABLET PO SCH (06:35)
[2017-12-19 06:41] LABS: Band Neutrophils 1 % (0-10); Hypochromasia 1+; Lymphocytes 79 % (20-55); Platelet Estimate Decreased; Segmented Neutrophils 19 % (50-85); Smudge Cells Many; Total Cells Counted 100
[2017-12-19] MEDS: DOCUSATE SODIUM 100 MG CAPSULE PO SCH ×2 (09:12→21:06)
[2017-12-19] MEDS: ACYCLOVIR 800 MG TABLET PO SCH ×2 (09:12→21:06)
[2017-12-19] MEDS: predniSONE 20 MG TABLET PO SCH (09:12)
[2017-12-19] MEDS: hydrALAZINE 25 MG TABLET PO SCH ×2 (09:12→21:06)
[2017-12-19] MEDS: PANTOPRAZOLE 40 MG TABLET PO SCH (09:12)
[2017-12-19] MEDS: INSULIN REGULAR 100 UNIT/ML SUBCUT SCH ×4 (09:13→21:06)
[2017-12-19] MEDS: FILGRASTIM-SNDZ 300 MCG/0.5 ML SYRINGE SUBCUT SCH (09:16)
[2017-12-19] MEDS: ZINC OXIDE PASTE 113 GM TUBE TOP SCH ×2 (09:17→21:09)
[2017-12-20] MEDS: VANCOMYCIN INJ 1,000 MG in SODIUM CHLORIDE 0.9% 250 ML IV SCH ×2 (03:56→17:47)
[2017-12-20] MEDS: ACETAMINOPHEN 325 MG TABLET PO PRN ×2 (04:19→21:33)
[2017-12-20 05:47] LABS: Basophils # 0.4 10*3/uL (0.0-0.2); Basophils % 0.4 % (0.0-0.8); Hemoglobin 9.8 GM/DL (12.0-16.0); Immature Granulocytes % 0.6 %; Immature Granulocytes Absolute 0.57 #; Lymphocytes # 84.3 10*3/uL (1.4-4.0); Lymphocytes % 86.8 % (21.3-54.2); Mean Corpuscular HGB Conc 29.7 GM/DL (32-36); Mean Corpuscular Hemoglobin 30 PG (27-34); Mean Corpuscular Volume 100.9 FL (87-102); Mean Platelet Volume 11.5 FL (9.6-12.0); Monocytes # 7.3 10*3/uL (0.11-0.8); Monocytes % 7.5 % (1.7-12.7); Neutrophils # 4.6 10*3/uL (1.4-7.4); Neutrophils % 4.7 % (38.7-73.9); Platelet Count 41 T/CUMM (130-400); Red Blood Count 3.27 MC/CUMM (3.8-5.5); Red Cell Distribution Width 17.1 % (9.3-17.3)
[2017-12-20 05:50] LABS: White Blood Count 97.2 T/CUMM (4-12)
[2017-12-20 05:53] LABS: Albumin 2.8 G/DL (3.4-5.0); Bilirubin,Total 1.2 MG/DL (0.2-1.0); Calcium 7.9 MG/DL (8.5-10.1); Osmolality,Calculated 290.6 MOS/KG (273-304); Potassium 3.2 MMOL/L (3.5-5.1); Total Protein 5.5 G/DL (6.4-8.3)
[2017-12-20] MEDS: LEVOTHYROXINE 125 MCG TABLET PO SCH (06:04)
[2017-12-20 07:10] LABS: Band Neutrophils 3 % (0-10); Hypochromasia 2+; Lymphocytes 78 % (20-55); Microcytosis 1+; Platelet Estimate Decreased; Segmented Neutrophils 18 % (50-85); Smudge Cells Many; Total Cells Counted 100
[2017-12-20] MEDS: INSULIN REGULAR 100 UNIT/ML SUBCUT SCH ×4 (08:00→21:29)
[2017-12-20] MEDS: DEXT 5% NACL 0.45% KCL 40 MEQ 40 MEQ/1,000 ML BAG IV SCH ×2 (08:03→11:35)
[2017-12-20] MEDS: hydrALAZINE 25 MG TABLET PO SCH ×2 (09:52→21:29)
[2017-12-20] MEDS: ACYCLOVIR 800 MG TABLET PO SCH ×2 (09:52→21:29)
[2017-12-20] MEDS: PANTOPRAZOLE 40 MG TABLET PO SCH (09:52)
[2017-12-20] MEDS: DOCUSATE SODIUM 100 MG CAPSULE PO SCH ×2 (09:52→21:29)
[2017-12-20] MEDS: FILGRASTIM-SNDZ 300 MCG/0.5 ML SYRINGE SUBCUT SCH (09:52)
[2017-12-20] MEDS: ZINC OXIDE PASTE 113 GM TUBE TOP SCH ×2 (11:35→21:49)
[2017-12-21] MEDS: VANCOMYCIN INJ 1,000 MG in SODIUM CHLORIDE 0.9% 250 ML IV SCH ×2 (04:07→16:16)
[2017-12-21 04:33] LABS: Basophils # 0.4 10*3/uL (0.0-0.2); Basophils % 0.4 % (0.0-0.8); Hemoglobin 9.9 GM/DL (12.0-16.0); Immature Granulocytes % 0.4 %; Immature Granulocytes Absolute 0.33 #; Lymphocytes % 85.9 % (21.3-54.2); Mean Corpuscular HGB Conc 30.9 GM/DL (32-36); Mean Corpuscular Hemoglobin 31 PG (27-34); Mean Corpuscular Volume 101.6 FL (87-102); Mean Platelet Volume 10.6 FL (9.6-12.0); Monocytes # 7.9 10*3/uL (0.11-0.8); Monocytes % 8.4 % (1.7-12.7); Neutrophils # 4.6 10*3/uL (1.4-7.4); Neutrophils % 4.9 % (38.7-73.9); Red Blood Count 3.15 MC/CUMM (3.8-5.5); Red Cell Distribution Width 17.4 % (9.3-17.3)
[2017-12-21 04:38] LABS: White Blood Count 94.2 T/CUMM (4-12)
[2017-12-21 04:40] LABS: Platelet Count 44 T/CUMM (130-400)
[2017-12-21 05:08] LABS: Albumin 2.7 G/DL (3.4-5.0); Bilirubin,Total 0.8 MG/DL (0.2-1.0); Calcium 7.8 MG/DL (8.5-10.1); Osmolality,Calculated 291.6 MOS/KG (273-304); Potassium 3.6 MMOL/L (3.5-5.1); Total Protein 5.3 G/DL (6.4-8.3)
[2017-12-21 05:17] LABS: Atypical Lymphocytes Few; Lymphocytes 78 % (20-55); Platelet Estimate Decreased; Segmented Neutrophils 22 % (50-85); Smudge Cells Moderate; Total Cells Counted 100
[2017-12-21 05:18] LABS: Hypochromasia 1+; Microcytosis 1+; Ovalocytes Slight
[2017-12-21] MEDS: LEVOTHYROXINE 125 MCG TABLET PO SCH (06:08)
[2017-12-21] MEDS: DOCUSATE SODIUM 100 MG CAPSULE PO SCH ×2 (09:08→20:48)
[2017-12-21] MEDS: PANTOPRAZOLE 40 MG TABLET PO SCH (09:08)
[2017-12-21] MEDS: hydrALAZINE 25 MG TABLET PO SCH ×2 (09:08→20:48)
[2017-12-21] MEDS: INSULIN REGULAR 100 UNIT/ML SUBCUT SCH ×4 (09:09→20:48)
[2017-12-21] MEDS: predniSONE 20 MG TABLET PO SCH (09:09)
[2017-12-21] MEDS: ACYCLOVIR 800 MG TABLET PO SCH ×2 (09:09→20:48)
[2017-12-21] MEDS: FILGRASTIM-SNDZ 300 MCG/0.5 ML SYRINGE SUBCUT SCH (09:10)
[2017-12-21] MEDS: ZINC OXIDE PASTE 113 GM TUBE TOP SCH ×2 (09:11→21:00)
[2017-12-21] MEDS: DEXT 5% NACL 0.45% KCL 40 MEQ 40 MEQ/1,000 ML BAG IV SCH (16:15)
[2017-12-22] MEDS: VANCOMYCIN INJ 1,000 MG in SODIUM CHLORIDE 0.9% 250 ML IV SCH ×2 (03:57→19:44)
[2017-12-22 04:29] LABS: Basophils # 0.1 10*3/uL (0.0-0.2); Basophils % 0.1 % (0.0-0.8); Hemoglobin 9.7 GM/DL (12.0-16.0); Immature Granulocytes % 0.4 %; Immature Granulocytes Absolute 0.39 #; Lymphocytes # 80.3 10*3/uL (1.4-4.0); Lymphocytes % 87.7 % (21.3-54.2); Mean Corpuscular HGB Conc 32.3 GM/DL (32-36); Mean Corpuscular Hemoglobin 32 PG (27-34); Mean Corpuscular Volume 98.7 FL (87-102); Mean Platelet Volume 11.3 FL (9.6-12.0); Monocytes # 4.7 10*3/uL (0.11-0.8); Monocytes % 5.1 % (1.7-12.7); Neutrophils # 6.1 10*3/uL (1.4-7.4); Neutrophils % 6.7 % (38.7-73.9); Platelet Count 45 T/CUMM (130-400); Red Blood Count 3.04 MC/CUMM (3.8-5.5); Red Cell Distribution Width 17.2 % (9.3-17.3)
[2017-12-22 04:36] LABS: White Blood Count 91.5 T/CUMM (4-12)
[2017-12-22 05:06] LABS: Band Neutrophils 2 % (0-10); Lymphocytes 57 % (20-55); Segmented Neutrophils 41 % (50-85); Total Cells Counted 100
[2017-12-22 05:07] LABS: Atypical Lymphocytes Few; Hypochromasia 1+; Smudge Cells Many
[2017-12-22 05:08] LABS: Microcytosis 1+; Platelet Estimate Decreased
[2017-12-22 05:20] LABS: Albumin 2.9 G/DL (3.4-5.0); Bilirubin,Total 0.8 MG/DL (0.2-1.0); Calcium 7.8 MG/DL (8.5-10.1); Osmolality,Calculated 287.8 MOS/KG (273-304); Potassium 3.5 MMOL/L (3.5-5.1); Total Protein 5.4 G/DL (6.4-8.3)
[2017-12-22] MEDS: LEVOTHYROXINE 125 MCG TABLET PO SCH (06:02)
[2017-12-22] MEDS: DOXYCYCLINE HYCLATE 100 MG CAPSULE PO SCH ×2 (09:01→20:35)
[2017-12-22] MEDS: ACYCLOVIR 800 MG TABLET PO SCH ×2 (09:02→20:35)
[2017-12-22] MEDS: DOCUSATE SODIUM 100 MG CAPSULE PO SCH ×2 (09:02→20:35)
[2017-12-22] MEDS: ZINC OXIDE PASTE 113 GM TUBE TOP SCH ×2 (09:02→20:39)
[2017-12-22] MEDS: PANTOPRAZOLE 40 MG TABLET PO SCH (09:02)
[2017-12-22] MEDS: hydrALAZINE 25 MG TABLET PO SCH ×2 (09:02→20:35)
[2017-12-22] MEDS: INSULIN REGULAR 100 UNIT/ML SUBCUT SCH ×4 (09:03→20:35)
[2017-12-22] MEDS: FILGRASTIM-SNDZ 300 MCG/0.5 ML SYRINGE SUBCUT SCH (09:03)
[2017-12-23] MEDS: DEXT 5% NACL 0.45% KCL 40 MEQ 40 MEQ/1,000 ML BAG IV SCH (01:22)
[2017-12-23] MEDS: ACETAMINOPHEN 325 MG TABLET PO PRN (02:45)
[2017-12-23 05:14] LABS: Basophils # 0.1 10*3/uL (0.0-0.2); Basophils % 0.1 % (0.0-0.8); Hematocrit 29.7 VOL% (35.7-47.0); Hemoglobin 9.2 GM/DL (12.0-16.0); Immature Granulocytes % 0.4 %; Immature Granulocytes Absolute 0.34 #; Lymphocytes # 78.8 10*3/uL (1.4-4.0); Lymphocytes % 83.5 % (21.3-54.2); Mean Corpuscular Hemoglobin 31 PG (27-34); Mean Corpuscular Volume 100.7 FL (87-102); Mean Platelet Volume 11.5 FL (9.6-12.0); Monocytes % 9.6 % (1.7-12.7); NRBC # 0.03 10*3/uL; Neutrophils # 6.1 10*3/uL (1.4-7.4); Neutrophils % 6.4 % (38.7-73.9); Platelet Count 47 T/CUMM (130-400); Red Blood Count 2.95 MC/CUMM (3.8-5.5); Red Cell Distribution Width 17.4 % (9.3-17.3)
[2017-12-23 05:26] LABS: White Blood Count 94.4 T/CUMM (4-12)
[2017-12-23 05:48] LABS: Albumin 2.8 G/DL (3.4-5.0); Bilirubin,Total 0.9 MG/DL (0.2-1.0); Calcium 7.7 MG/DL (8.5-10.1); Osmolality,Calculated 288.8 MOS/KG (273-304); Potassium 3.5 MMOL/L (3.5-5.1); Total Protein 5.4 G/DL (6.4-8.3)
[2017-12-23 05:51] LABS: Atypical Lymphocytes Few; Eosinophils 1 % (0-10); Hypochromasia 1+; Lymphocytes 72 % (20-55); Microcytosis Slight; Ovalocytes Slight; Platelet Estimate Decreased; Segmented Neutrophils 26 % (50-85); Smudge Cells Moderate; Total Cells Counted 100
[2017-12-23] MEDS: LEVOTHYROXINE 125 MCG TABLET PO SCH (06:02)
[2017-12-23] MEDS: INSULIN REGULAR 100 UNIT/ML SUBCUT SCH ×2 (08:40→13:06)
[2017-12-23] MEDS: DOXYCYCLINE HYCLATE 100 MG CAPSULE PO SCH (09:06)
[2017-12-23] MEDS: ACYCLOVIR 800 MG TABLET PO SCH (09:06)
[2017-12-23] MEDS: predniSONE 20 MG TABLET PO SCH (09:06)
[2017-12-23] MEDS: ZINC OXIDE PASTE 113 GM TUBE TOP SCH (09:07)
[2017-12-23] MEDS: PANTOPRAZOLE 40 MG TABLET PO SCH (09:07)
[2017-12-23] MEDS: FILGRASTIM-SNDZ 300 MCG/0.5 ML SYRINGE SUBCUT SCH (09:07)
[2017-12-23] MEDS: DOCUSATE SODIUM 100 MG CAPSULE PO SCH (09:07)
[2017-12-23] MEDS: hydrALAZINE 25 MG TABLET PO SCH (09:07)
[2017-12-23 13:05] VITALS: BP 163/75
== END 2017-12-23 13:35 | disposition home health service (06) | DRG 256 ==
LOC: N.ED 16:17 → N.EDINP 19:10 → N.5E 19:41 → N.4E 12-10 10:41
PROVIDERS: ADMIT Internal Medicine; ATTEND Internal Medicine

== ENCOUNTER 2018-03-13 07:43 | Inpatient (IN) ==
[2018-03-13] MEDS ORDERED: PIPERACILLIN/TAZOBACTAM 4.5 MG in SODIUM CHLORIDE 0.9% 100 ML IV STA (09:34)
[2018-03-13] MEDS ORDERED: VANCOMYCIN INJ 1,250 MG in SODIUM CHLORIDE 0.9% 250 ML IV STA (09:34)
[2018-03-13 10:07] LABS: Basophils # 0.2 10*3/uL (0.0-0.2); Basophils % 0.1 % (0.0-0.8); Hematocrit 28.9 VOL% (35.7-47.0); Hemoglobin 8.5 GM/DL (12.0-16.0); Immature Granulocytes % 0.1 %; Immature Granulocytes Absolute 0.16 #; Lymphocytes % 92.7 % (21.3-54.2); Mean Corpuscular HGB Conc 29.4 GM/DL (32-36); Mean Corpuscular Hemoglobin 34 PG (27-34); Mean Corpuscular Volume 115.1 FL (87-102); Mean Platelet Volume 10.1 FL (9.6-12.0); Monocytes # 15.7 10*3/uL (0.11-0.8); Monocytes % 6.2 % (1.7-12.7); Neutrophils # 2.3 10*3/uL (1.4-7.4); Neutrophils % 0.9 % (38.7-73.9); Platelet Count 88 T/CUMM (130-400); Red Blood Count 2.51 MC/CUMM (3.8-5.5); Red Cell Distribution Width 19.1 % (9.3-17.3)
[2018-03-13] MEDS ORDERED: PIPERACILLIN/TAZOBACTAM 4,500 MG in SODIUM CHLORIDE 0.9% 100 ML IV STA (10:09)
[2018-03-13 10:11] LABS: White Blood Count 252.4 T/CUMM (4-12)
[2018-03-13 10:22] LABS: INR 1.1; PT Patient Result 11.4 SECS
[2018-03-13 10:33] LABS: Albumin 3.6 G/DL (3.4-5.0); Bilirubin,Total 1.1 MG/DL (0.2-1.0); Calcium 8.4 MG/DL (8.5-10.1); Osmolality,Calculated 285.1 MOS/KG (273-304); Potassium 4.7 MMOL/L (3.5-5.1); Total Protein 6.3 G/DL (6.4-8.3)
[2018-03-13 10:35] LABS: Partial Thromboplastin Time 41.5 SECS (0-40)
[2018-03-13] MEDS ORDERED: LACTATED RINGERS 1,000 ML IV ONE (10:45)
[2018-03-13] MEDS ORDERED: ONDANSETRON 4 MG/2 ML VIAL IV PRN (14:01)
[2018-03-13] MEDS ORDERED: DEXTROSE 50% 25 GM/50 ML VIAL IV PRN (14:01)
[2018-03-13] MEDS ORDERED: GLUCAGON 1 MG VIAL IM PRN (14:01)
[2018-03-13 14:05] LABS: Atypical Lymphocytes Few; Lymphocytes 95 % (20-55); Reactive Lymphocytes Few; Segmented Neutrophils 3 % (50-85); Total Cells Counted 100
[2018-03-13 14:06] LABS: Platelet Estimate Decreased; Polychromasia Slight
[2018-03-13] MEDS: PANTOPRAZOLE 40 MG TABLET PO SCH (14:40)
[2018-03-13] MEDS: PIPERACILLIN/TAZOBACTAM 3,375 MG in SODIUM CHLORIDE 0.9% 100 ML IV SCH ×2 (16:37→23:23)
[2018-03-13] MEDS: INSULIN REGULAR 100 UNIT/ML SUBCUT SCH (18:48)
[2018-03-13] MEDS: ACETAMINOPHEN 500 MG TABLET PO PRN (19:49)
[2018-03-13] MEDS ORDERED: KETOROLAC 15 MG/1 ML VIAL IV ONE (23:23)
[2018-03-13] MEDS: hydrALAZINE 25 MG TABLET PO SCH (23:53)
[2018-03-13] MEDS: SODIUM CHLORIDE 0.45% 1,000 ML IV SCH (23:55)
[2018-03-14 04:22] LABS: Basophils # 0.1 10*3/uL (0.0-0.2); Basophils % 0.1 % (0.0-0.8); Hematocrit 24.5 VOL% (35.7-47.0); Hemoglobin 7.3 GM/DL (12.0-16.0); Immature Granulocytes % 0.1 %; Immature Granulocytes Absolute 0.14 #; Lymphocytes % 89.4 % (21.3-54.2); Mean Corpuscular HGB Conc 29.8 GM/DL (32-36); Mean Corpuscular Hemoglobin 35 PG (27-34); Mean Corpuscular Volume 118.4 FL (87-102); Mean Platelet Volume 10.1 FL (9.6-12.0); Monocytes # 18.1 10*3/uL (0.11-0.8); Monocytes % 9.5 % (1.7-12.7); NRBC # 0.02 10*3/uL; Neutrophils # 1.7 10*3/uL (1.4-7.4); Neutrophils % 0.9 % (38.7-73.9); Red Blood Count 2.07 MC/CUMM (3.8-5.5); Red Cell Distribution Width 17.3 % (9.3-17.3)
[2018-03-14 04:42] LABS: Calcium 7.9 MG/DL (8.5-10.1); Osmolality,Calculated 286.7 MOS/KG (273-304); Potassium 3.5 MMOL/L (3.5-5.1); Uric Acid 3.8 MG/DL (2.6-6.0)
[2018-03-14 05:06] LABS: Platelet Count 67 T/CUMM (130-400)
[2018-03-14 05:07] LABS: White Blood Count 190.1 T/CUMM (4-12)
[2018-03-14] MEDS: LEVOTHYROXINE 125 MCG TABLET PO SCH (06:10)
[2018-03-14] MEDS: ALBUTEROL/IPRATROPIUM 3 ML NEB RESP TX SCH ×3 (07:41→18:30)
[2018-03-14] MEDS: PANTOPRAZOLE 40 MG TABLET PO SCH (08:12)
[2018-03-14] MEDS: PIPERACILLIN/TAZOBACTAM 3,375 MG in SODIUM CHLORIDE 0.9% 100 ML IV SCH ×2 (08:14→21:31)
[2018-03-14] MEDS: INSULIN REGULAR 100 UNIT/ML SUBCUT SCH ×2 (08:15→19:32)
[2018-03-14] MEDS: hydrALAZINE 25 MG TABLET PO SCH ×2 (08:24→20:18)
[2018-03-14] MEDS ORDERED: GLIMEPIRIDE 2 MG TABLET PO SCH (09:00)
[2018-03-14 09:20] LABS: Lymphocytes 97 % (20-55); Segmented Neutrophils 3 % (50-85); Total Cells Counted 100
[2018-03-14 09:21] LABS: Atypical Lymphocytes Few; Platelet Estimate Decreased; Polychromasia Slight; Reactive Lymphocytes Few; Smudge Cells Few
[2018-03-14] MEDS: ACETAMINOPHEN 500 MG TABLET PO PRN (13:19)
[2018-03-14] MEDS: DOCUSATE SODIUM 100 MG CAPSULE PO SCH (13:23)
[2018-03-14] MEDS: methylPREDNISolone SOD SUC 40 MG/1 ML VIAL IV SCH ×2 (13:23→20:19)
[2018-03-14] MEDS ORDERED: POTASSIUM CHLORIDE 20 MEQ TABLET PO ONE (13:27)
[2018-03-14] MEDS ORDERED: SODIUM CHLORIDE 0.9% 1,000 ML IV PRN (14:01)
[2018-03-14] MEDS: LORATADINE 10 MG TABLET PO SCH (14:31)
[2018-03-14 14:54] LABS: Basophils # 0.2 10*3/uL (0.0-0.2); Basophils % 0.1 % (0.0-0.8); Hematocrit 25.7 VOL% (35.7-47.0); Hemoglobin 7.5 GM/DL (12.0-16.0); Immature Granulocytes % 0.1 %; Immature Granulocytes Absolute 0.18 #; Lymphocytes # 188.3 10*3/uL (1.4-4.0); Lymphocytes % 91.9 % (21.3-54.2); Mean Corpuscular HGB Conc 29.2 GM/DL (32-36); Mean Corpuscular Hemoglobin 34 PG (27-34); Mean Corpuscular Volume 115.8 FL (87-102); Monocytes % 6.8 % (1.7-12.7); Neutrophils # 2.2 10*3/uL (1.4-7.4); Neutrophils % 1.1 % (38.7-73.9); Red Blood Count 2.22 MC/CUMM (3.8-5.5); Red Cell Distribution Width 18.2 % (9.3-17.3)
[2018-03-14 14:58] LABS: Platelet Count 69 T/CUMM (130-400); White Blood Count 204.9 T/CUMM (4-12)
[2018-03-14] MEDS: metroNIDAZOLE INJ 250 MG in IV BAG 1 EACH IV SCH ×2 (15:20→20:20)
[2018-03-14 15:36] LABS: Lymphocytes 91 % (20-55); Segmented Neutrophils 5 % (50-85); Total Cells Counted 100
[2018-03-14 15:37] LABS: Hypochromasia Slight; Platelet Estimate Decreased; Smudge Cells 3+
[2018-03-14 21:28] LABS: Hematocrit 28.8 VOL% (35.7-47.0)
[2018-03-14 22:14] LABS: PT Patient Result 10.8 SECS; Partial Thromboplastin Time 28.7 SECS (0-40)
[2018-03-15] MEDS: SODIUM CHLORIDE 0.45% 1,000 ML IV SCH ×2 (01:37→16:35)
[2018-03-15] MEDS: metroNIDAZOLE INJ 250 MG in IV BAG 1 EACH IV SCH ×4 (01:40→19:49)
[2018-03-15] MEDS: methylPREDNISolone SOD SUC 40 MG/1 ML VIAL IV SCH (04:19)
[2018-03-15] MEDS: PIPERACILLIN/TAZOBACTAM 3,375 MG in SODIUM CHLORIDE 0.9% 100 ML IV SCH ×3 (04:21→20:55)
[2018-03-15 05:11] LABS: Basophils # 0.1 10*3/uL (0.0-0.2); Hematocrit 29.2 VOL% (35.7-47.0); Hemoglobin 8.8 GM/DL (12.0-16.0); Immature Granulocytes % 0.1 %; Immature Granulocytes Absolute 0.23 #; Lymphocytes # 187.2 10*3/uL (1.4-4.0); Mean Corpuscular HGB Conc 30.1 GM/DL (32-36); Mean Corpuscular Hemoglobin 34 PG (27-34); Mean Platelet Volume 10.5 FL (9.6-12.0); Monocytes # 15.1 10*3/uL (0.11-0.8); Monocytes % 7.3 % (1.7-12.7); NRBC # 0.03 10*3/uL; Neutrophils # 3.1 10*3/uL (1.4-7.4); Neutrophils % 1.6 % (38.7-73.9); Platelet Count 64 T/CUMM (130-400); Red Blood Count 2.63 MC/CUMM (3.8-5.5); Red Cell Distribution Width 20.9 % (9.3-17.3)
[2018-03-15 05:28] LABS: White Blood Count 205.8 T/CUMM (4-12)
[2018-03-15 05:50] LABS: Lymphocytes 91 % (20-55); Segmented Neutrophils 7 % (50-85); Smudge Cells Moderate; Total Cells Counted 100
[2018-03-15 05:51] LABS: Anisocytosis 1+; Macrocytosis 1+
[2018-03-15 05:52] LABS: Hypochromasia 1+; Platelet Estimate Decreased
[2018-03-15] MEDS: LEVOTHYROXINE 125 MCG TABLET PO SCH (05:52)
[2018-03-15] MEDS: ALBUTEROL/IPRATROPIUM 3 ML NEB RESP TX SCH ×4 (07:14→19:15)
[2018-03-15] MEDS: POTASSIUM CHLORIDE 10 MEQ TABLET PO SCH (08:44)
[2018-03-15] MEDS: hydrALAZINE 25 MG TABLET PO SCH ×2 (08:44→20:51)
[2018-03-15] MEDS: FAMOTIDINE 20 MG TABLET PO SCH (08:44)
[2018-03-15] MEDS: INSULIN REGULAR 100 UNIT/ML SUBCUT SCH ×2 (08:45→16:43)
[2018-03-15] MEDS: LORATADINE 10 MG TABLET PO SCH (08:45)
[2018-03-15] MEDS: DOCUSATE SODIUM 100 MG CAPSULE PO SCH (08:45)
[2018-03-15] MEDS: CIPROFLOXACIN 500 MG TABLET PO SCH ×2 (08:49→20:50)
[2018-03-15] MEDS ORDERED: IMMUNE GLOBULIN IV ONE (10:00)
[2018-03-15] MEDS ORDERED: ZINC OXIDE PASTE 113 GM TUBE TOP PRN (14:56)
[2018-03-15] MEDS: ACETAMINOPHEN 500 MG TABLET PO PRN (18:22)
[2018-03-16] MEDS: ALBUTEROL/IPRATROPIUM 3 ML NEB RESP TX SCH ×4 (02:16→19:37)
[2018-03-16] MEDS: SODIUM CHLORIDE 0.45% 1,000 ML IV SCH ×2 (02:27→21:09)
[2018-03-16] MEDS: metroNIDAZOLE INJ 250 MG in IV BAG 1 EACH IV SCH ×4 (02:27→19:57)
[2018-03-16] MEDS: PIPERACILLIN/TAZOBACTAM 3,375 MG in SODIUM CHLORIDE 0.9% 100 ML IV SCH (05:14)
[2018-03-16] MEDS: LEVOTHYROXINE 125 MCG TABLET PO SCH (06:02)
[2018-03-16] MEDS: DOCUSATE SODIUM 100 MG CAPSULE PO SCH (08:15)
[2018-03-16] MEDS: FAMOTIDINE 20 MG TABLET PO SCH (08:15)
[2018-03-16] MEDS: CIPROFLOXACIN 500 MG TABLET PO SCH ×2 (08:15→21:07)
[2018-03-16] MEDS: hydrALAZINE 25 MG TABLET PO SCH ×2 (08:15→21:07)
[2018-03-16] MEDS: LORATADINE 10 MG TABLET PO SCH (08:15)
[2018-03-16] MEDS: POTASSIUM CHLORIDE 10 MEQ TABLET PO SCH (08:15)
[2018-03-16] MEDS: INSULIN REGULAR 100 UNIT/ML SUBCUT SCH ×2 (08:16→16:36)
[2018-03-16] MEDS ORDERED: ALBUTEROL/IPRATROPIUM 3 ML NEB RESP TX PRN (08:20)
[2018-03-16] MEDS: predniSONE 20 MG TABLET PO SCH (08:36)
[2018-03-16] MEDS: MEROPENEM 500 MG in SODIUM CHLORIDE 0.9% 100 ML IV SCH ×2 (09:54→16:37)
[2018-03-16] MEDS ORDERED: BENZTROPINE 2 MG/2 ML AMP IV PRN (18:35)
[2018-03-16] MEDS ORDERED: MYLANTA/LIDO VISC 2:1 300 ML BOTTLE SWISH/SPIT PRN (18:35)
[2018-03-16] MEDS ORDERED: PROMETHAZINE INJ 25 MG in SODIUM CHLORIDE 0.9% 50 ML IV PRN (18:35)
[2018-03-16] MEDS ORDERED: chlorproMAZINE INJ 25 MG in SODIUM CHLORIDE 0.9% 100 ML IV PRN (18:35)
[2018-03-16] MEDS ORDERED: chlorproMAZINE INJ 50 MG in SODIUM CHLORIDE 0.9% 100 ML IV PRN (18:35)
[2018-03-16] MEDS ORDERED: MAGNESIUM HYDROXIDE SUSP 30 ML UDCUP PO PRN (18:35)
[2018-03-16] MEDS ORDERED: chlorproMAZINE 25 MG TABLET PO PRN (18:35)
[2018-03-16] MEDS ORDERED: LACTULOSE 20 GM/30 ML UDCUP PO PRN (18:35)
[2018-03-16] MEDS ORDERED: MYLANTA/LIDO VISC 2:1 300 ML BOTTLE SWISH/SWAL PRN (18:35)
[2018-03-16] MEDS ORDERED: ALUMINUM/MAGNES/SIMETH MAX STR 30 ML UDCUP PO PRN (18:35)
[2018-03-16] MEDS ORDERED: LOPERAMIDE 2 MG CAPSULE PO PRN (18:35)
[2018-03-16] MEDS ORDERED: diphenhydrAMINE CAP 25 MG CAPSULE PO PRN (18:35)
[2018-03-16] MEDS ORDERED: ACETAMINOPHEN 325 MG TABLET PO PRN (18:35)
[2018-03-16] MEDS ORDERED: guaiFENesin 200 MG/10 ML UDCUP PO PRN (18:35)
[2018-03-16] MEDS ORDERED: ALPRAZolam 0.25 MG TABLET PO PRN (18:35)
[2018-03-16] MEDS ORDERED: TEMAZEPAM 7.5 MG CAPSULE PO PRN (18:35)
[2018-03-16] MEDS ORDERED: ONDANSETRON 4 MG/2 ML VIAL IV PRN (18:35)
[2018-03-16] MEDS: LOPERAMIDE 2 MG CAPSULE PO PRN (19:03)
[2018-03-17] MEDS: MEROPENEM 500 MG in SODIUM CHLORIDE 0.9% 100 ML IV SCH ×3 (00:56→19:15)
[2018-03-17] MEDS: metroNIDAZOLE INJ 250 MG in IV BAG 1 EACH IV SCH ×4 (02:06→21:11)
[2018-03-17 05:43] LABS: Basophils # 0.1 10*3/uL (0.0-0.2); Hematocrit 26.3 VOL% (35.7-47.0); Hemoglobin 8.1 GM/DL (12.0-16.0); Immature Granulocytes % 0.1 %; Lymphocytes # 168.4 10*3/uL (1.4-4.0); Lymphocytes % 89.1 % (21.3-54.2); Mean Corpuscular HGB Conc 30.8 GM/DL (32-36); Mean Corpuscular Hemoglobin 35 PG (27-34); Mean Corpuscular Volume 112.9 FL (87-102); Mean Platelet Volume 10.7 FL (9.6-12.0); Monocytes # 18.7 10*3/uL (0.11-0.8); Monocytes % 9.9 % (1.7-12.7); Neutrophils # 1.6 10*3/uL (1.4-7.4); Neutrophils % 0.9 % (38.7-73.9); Platelet Count 66 T/CUMM (130-400); Red Blood Count 2.33 MC/CUMM (3.8-5.5); Red Cell Distribution Width 18.7 % (9.3-17.3)
[2018-03-17] MEDS: LEVOTHYROXINE 125 MCG TABLET PO SCH (06:10)
[2018-03-17 06:11] LABS: Albumin 2.9 G/DL (3.4-5.0); Bilirubin,Total 0.9 MG/DL (0.2-1.0); Calcium 7.3 MG/DL (8.5-10.1); Osmolality,Calculated 289.6 MOS/KG (273-304); Potassium 3.7 MMOL/L (3.5-5.1); Total Protein 5.9 G/DL (6.4-8.3)
[2018-03-17 06:58] LABS: Anisocytosis 2+; Lymphocytes 95 % (20-55); Macrocytosis 2+; Ovalocytes Few; Platelet Estimate Decreased; Smudge Cells Moderate; Total Cells Counted 100
[2018-03-17] MEDS: ALBUTEROL/IPRATROPIUM 3 ML NEB RESP TX SCH ×3 (06:59→19:13)
[2018-03-17] MEDS ORDERED: SODIUM CHLORIDE 0.9% 1,000 ML IV PRN (07:46)
[2018-03-17] MEDS: INSULIN REGULAR 100 UNIT/ML SUBCUT SCH ×2 (08:12→21:10)
[2018-03-17] MEDS: hydrALAZINE 25 MG TABLET PO SCH ×2 (08:15→21:11)
[2018-03-17] MEDS: FAMOTIDINE 20 MG TABLET PO SCH (08:15)
[2018-03-17] MEDS: CIPROFLOXACIN 500 MG TABLET PO SCH ×2 (08:15→21:11)
[2018-03-17] MEDS: DOCUSATE SODIUM 100 MG CAPSULE PO SCH ×2 (08:15→09:11)
[2018-03-17] MEDS: POTASSIUM CHLORIDE 10 MEQ TABLET PO SCH (08:16)
[2018-03-17] MEDS: LORATADINE 10 MG TABLET PO SCH (08:16)
[2018-03-17] MEDS: FILGRASTIM-SNDZ 300 MCG/0.5 ML SYRINGE SUBCUT SCH (09:27)
[2018-03-17] MEDS: SODIUM CHLORIDE 0.45% 1,000 ML IV SCH (16:20)
[2018-03-18] MEDS: MEROPENEM 500 MG in SODIUM CHLORIDE 0.9% 100 ML IV SCH ×3 (01:30→17:54)
[2018-03-18] MEDS: metroNIDAZOLE INJ 250 MG in IV BAG 1 EACH IV SCH ×4 (02:51→20:48)
[2018-03-18 05:56] LABS: Basophils % 0.1 % (0.0-0.8); Immature Granulocytes % 0.2 %; Mean Corpuscular Volume 108.9 FL (87-102)
[2018-03-18 06:02] LABS: Basophils # 0.3 10*3/uL (0.0-0.2); Eosinophils # 0.1 10*3/uL (0.0-0.87); Hematocrit 34.2 VOL% (35.7-47.0); Immature Granulocytes Absolute 0.44 #; Lymphocytes # 207.4 10*3/uL (1.4-4.0); Lymphocytes % 88.1 % (21.3-54.2); Mean Corpuscular HGB Conc 30.7 GM/DL (32-36); Mean Corpuscular Hemoglobin 33 PG (27-34); Mean Platelet Volume 10.6 FL (9.6-12.0); Monocytes % 10.2 % (1.7-12.7); Neutrophils # 3.2 10*3/uL (1.4-7.4); Neutrophils % 1.4 % (38.7-73.9); Platelet Count 72 T/CUMM (130-400); Red Cell Distribution Width 22.1 % (9.3-17.3)
[2018-03-18 06:08] LABS: Hemoglobin 10.5 GM/DL (12.0-16.0); Red Blood Count 3.14 MC/CUMM (3.8-5.5); White Blood Count 235.3 T/CUMM (4-12)
[2018-03-18] MEDS: LEVOTHYROXINE 125 MCG TABLET PO SCH (06:20)
[2018-03-18 06:25] LABS: Band Neutrophils 1 % (0-10); Lymphocytes 93 % (20-55); Segmented Neutrophils 2 % (50-85); Total Cells Counted 100
[2018-03-18 06:26] LABS: Anisocytosis 1+; Macrocytosis 1+; Platelet Estimate Decreased; Smudge Cells Moderate
[2018-03-18 06:27] LABS: Hypochromasia Slight; Ovalocytes 1+
[2018-03-18 06:28] LABS: Albumin 2.8 G/DL (3.4-5.0); Bilirubin,Total 1.4 MG/DL (0.2-1.0); Calcium 7.4 MG/DL (8.5-10.1); Total Protein 5.8 G/DL (6.4-8.3)
[2018-03-18] MEDS: ALBUTEROL/IPRATROPIUM 3 ML NEB RESP TX SCH ×3 (07:12→19:16)
[2018-03-18] MEDS: FILGRASTIM-SNDZ 300 MCG/0.5 ML SYRINGE SUBCUT SCH (08:47)
[2018-03-18] MEDS: predniSONE 20 MG TABLET PO SCH (08:48)
[2018-03-18] MEDS: POTASSIUM CHLORIDE 10 MEQ TABLET PO SCH (08:48)
[2018-03-18] MEDS: LORATADINE 10 MG TABLET PO SCH (08:48)
[2018-03-18] MEDS: hydrALAZINE 25 MG TABLET PO SCH ×2 (08:48→20:48)
[2018-03-18] MEDS: FAMOTIDINE 20 MG TABLET PO SCH (08:48)
[2018-03-18] MEDS: CHOLESTYRAMINE 4 GM PACK PO SCH ×2 (08:58→20:48)
[2018-03-18] MEDS: ACETAMINOPHEN 500 MG TABLET PO PRN (11:12)
[2018-03-18] MEDS: DOCUSATE SODIUM 100 MG CAPSULE PO SCH (11:13)
[2018-03-18] MEDS: INSULIN REGULAR 100 UNIT/ML SUBCUT SCH ×2 (14:31→17:55)
[2018-03-19] MEDS: MEROPENEM 500 MG in SODIUM CHLORIDE 0.9% 100 ML IV SCH ×3 (01:19→16:58)
[2018-03-19] MEDS: metroNIDAZOLE INJ 250 MG in IV BAG 1 EACH IV SCH ×4 (02:19→20:24)
[2018-03-19 05:21] LABS: Albumin 2.9 G/DL (3.4-5.0); Bilirubin,Total 0.9 MG/DL (0.2-1.0); Calcium 7.7 MG/DL (8.5-10.1); Osmolality,Calculated 288.7 MOS/KG (273-304); Potassium 3.7 MMOL/L (3.5-5.1); Total Protein 5.7 G/DL (6.4-8.3)
[2018-03-19 05:22] LABS: Basophils # 0.1 10*3/uL (0.0-0.2); Hematocrit 33.8 VOL% (35.7-47.0); Hemoglobin 10.5 GM/DL (12.0-16.0); Immature Granulocytes % 0.4 %; Immature Granulocytes Absolute 0.96 #; Lymphocytes # 199.2 10*3/uL (1.4-4.0); Lymphocytes % 89.5 % (21.3-54.2); Mean Corpuscular HGB Conc 31.1 GM/DL (32-36); Mean Corpuscular Hemoglobin 33 PG (27-34); Mean Platelet Volume 10.6 FL (9.6-12.0); Monocytes # 19.2 10*3/uL (0.11-0.8); Monocytes % 8.6 % (1.7-12.7); NRBC # 0.03 10*3/uL; Neutrophils # 3.2 10*3/uL (1.4-7.4); Neutrophils % 1.5 % (38.7-73.9); Platelet Count 69 T/CUMM (130-400); Red Blood Count 3.16 MC/CUMM (3.8-5.5); Red Cell Distribution Width 20.3 % (9.3-17.3)
[2018-03-19 05:26] LABS: White Blood Count 222.6 T/CUMM (4-12)
[2018-03-19 06:23] LABS: Band Neutrophils 1 % (0-10); Lymphocytes 96 % (20-55); Segmented Neutrophils 3 % (50-85); Total Cells Counted 100
[2018-03-19 06:24] LABS: Atypical Lymphocytes Few; Hypochromasia Slight; Macrocytosis 1+; Platelet Estimate Decreased; Smudge Cells Moderate
[2018-03-19 06:25] LABS: Ovalocytes Slight
[2018-03-19] MEDS: ALBUTEROL/IPRATROPIUM 3 ML NEB RESP TX SCH ×3 (07:19→19:33)
[2018-03-19] MEDS: INSULIN REGULAR 100 UNIT/ML SUBCUT SCH ×2 (08:04→16:11)
[2018-03-19] MEDS ORDERED: LIDOCAINE 1% 20 ML VIAL ONE (08:18)
[2018-03-19] MEDS: SODIUM CHLORIDE 0.45% 1,000 ML IV SCH ×3 (09:21→15:25)
[2018-03-19] MEDS ORDERED: SODIUM CHLORIDE 0.9% 1,000 ML IV PRN (09:26)
[2018-03-19] MEDS ORDERED: MIDAZOLAM 2 MG/2 ML VIAL ONE (09:30)
[2018-03-19] MEDS ORDERED: PROPOFOL 200 MG/20 ML VIAL IV ONE (09:30)
[2018-03-19] MEDS ORDERED: fentaNYL 100 MCG/2 ML VIAL ONE (09:30)
[2018-03-19] MEDS ORDERED: ONDANSETRON 4 MG/2 ML VIAL IV PRN (09:56)
[2018-03-19] MEDS ORDERED: HYDROmorphone 2 MG/1 ML VIAL IV PRN (09:56)
[2018-03-19] MEDS: POTASSIUM CHLORIDE 10 MEQ TABLET PO SCH (10:39)
[2018-03-19] MEDS: LORATADINE 10 MG TABLET PO SCH (10:39)
[2018-03-19] MEDS: hydrALAZINE 25 MG TABLET PO SCH ×2 (10:39→20:21)
[2018-03-19] MEDS: FILGRASTIM-SNDZ 300 MCG/0.5 ML SYRINGE SUBCUT SCH (10:40)
[2018-03-19] MEDS: CHOLESTYRAMINE 4 GM PACK PO SCH ×2 (10:40→20:29)
[2018-03-19] MEDS: LEVOTHYROXINE 125 MCG TABLET PO SCH (10:40)
[2018-03-19] MEDS: FAMOTIDINE 20 MG TABLET PO SCH (10:40)
[2018-03-19] MEDS: DOCUSATE SODIUM 100 MG CAPSULE PO SCH (11:23)
[2018-03-19] MEDS ORDERED: GLUCAGON 1 MG VIAL IM PRN (12:55)
[2018-03-19] MEDS ORDERED: DEXTROSE 50% 25 GM/50 ML VIAL IV PRN (12:55)
[2018-03-20] MEDS: MEROPENEM 500 MG in SODIUM CHLORIDE 0.9% 100 ML IV SCH ×3 (00:27→17:13)
[2018-03-20] MEDS: metroNIDAZOLE INJ 250 MG in IV BAG 1 EACH IV SCH ×4 (01:34→20:11)
[2018-03-20] MEDS: LEVOTHYROXINE 125 MCG TABLET PO SCH (06:28)
[2018-03-20] MEDS: SODIUM CHLORIDE 0.45% 1,000 ML IV SCH (07:27)
[2018-03-20] MEDS: ALBUTEROL/IPRATROPIUM 3 ML NEB RESP TX SCH ×3 (07:40→20:23)
[2018-03-20] MEDS: INSULIN REGULAR 100 UNIT/ML SUBCUT SCH ×2 (09:25→16:59)
[2018-03-20] MEDS: predniSONE 20 MG TABLET PO SCH (09:55)
[2018-03-20] MEDS: hydrALAZINE 25 MG TABLET PO SCH ×2 (09:55→20:07)
[2018-03-20] MEDS: LORATADINE 10 MG TABLET PO SCH (09:55)
[2018-03-20] MEDS: DOCUSATE SODIUM 100 MG CAPSULE PO SCH (09:55)
[2018-03-20] MEDS: FAMOTIDINE 20 MG TABLET PO SCH (09:55)
[2018-03-20] MEDS: POTASSIUM CHLORIDE 10 MEQ TABLET PO SCH (09:55)
[2018-03-20] MEDS: LOPERAMIDE 2 MG CAPSULE PO PRN (09:56)
[2018-03-20] MEDS: CHOLESTYRAMINE 4 GM PACK PO SCH ×2 (09:57→20:13)
[2018-03-20] MEDS: FILGRASTIM-SNDZ 300 MCG/0.5 ML SYRINGE SUBCUT SCH (09:59)
[2018-03-20 10:26] LABS: Basophils # 0.1 10*3/uL (0.0-0.2); Hematocrit 35.1 VOL% (35.7-47.0); Hemoglobin 10.8 GM/DL (12.0-16.0); Immature Granulocytes % 0.2 %; Lymphocytes # 241.7 10*3/uL (1.4-4.0); Lymphocytes % 92.2 % (21.3-54.2); Mean Corpuscular HGB Conc 30.8 GM/DL (32-36); Mean Corpuscular Hemoglobin 34 PG (27-34); Mean Corpuscular Volume 109.3 FL (87-102); Mean Platelet Volume 10.4 FL (9.6-12.0); Monocytes # 15.9 10*3/uL (0.11-0.8); Monocytes % 6.1 % (1.7-12.7); NRBC # 0.05 10*3/uL; Neutrophils # 4.1 10*3/uL (1.4-7.4); Neutrophils % 1.5 % (38.7-73.9); Platelet Count 69 T/CUMM (130-400); Red Blood Count 3.21 MC/CUMM (3.8-5.5)
[2018-03-20 10:43] LABS: White Blood Count 262.3 T/CUMM (4-12)
[2018-03-20 10:57] LABS: Albumin 3.2 G/DL (3.4-5.0); Bilirubin,Total 0.7 MG/DL (0.2-1.0); Calcium 7.6 MG/DL (8.5-10.1); Osmolality,Calculated 285.1 MOS/KG (273-304); Potassium 4.1 MMOL/L (3.5-5.1); Total Protein 6.2 G/DL (6.4-8.3)
[2018-03-20] MEDS: ACETAMINOPHEN 500 MG TABLET PO PRN ×2 (12:15→20:08)
[2018-03-20 12:47] LABS: Atypical Lymphocytes Many; Band Neutrophils 1 % (0-10); Lymphocytes 91 % (20-55); Platelet Estimate Decreased; Segmented Neutrophils 5 % (50-85); Smudge Cells Many; Total Cells Counted 100
[2018-03-20 12:48] LABS: Anisocytosis 1+
[2018-03-21] MEDS: MEROPENEM 500 MG in SODIUM CHLORIDE 0.9% 100 ML IV SCH ×3 (01:04→19:12)
[2018-03-21] MEDS: SODIUM CHLORIDE 0.45% 1,000 ML IV SCH ×2 (01:04→19:13)
[2018-03-21] MEDS: metroNIDAZOLE INJ 250 MG in IV BAG 1 EACH IV SCH ×2 (02:29→11:06)
[2018-03-21 06:09] LABS: Basophils # 0.2 10*3/uL (0.0-0.2); Basophils % 0.1 % (0.0-0.8); Hematocrit 33.4 VOL% (35.7-47.0); Hemoglobin 9.8 GM/DL (12.0-16.0); Immature Granulocytes % 0.1 %; Immature Granulocytes Absolute 0.33 #; Lymphocytes % 85.8 % (21.3-54.2); Mean Corpuscular HGB Conc 29.3 GM/DL (32-36); Mean Corpuscular Hemoglobin 33 PG (27-34); Mean Platelet Volume 11.4 FL (9.6-12.0); Monocytes # 28.3 10*3/uL (0.11-0.8); Monocytes % 12.4 % (1.7-12.7); Neutrophils # 3.6 10*3/uL (1.4-7.4); Neutrophils % 1.6 % (38.7-73.9); Platelet Count 52 T/CUMM (130-400); Red Blood Count 3.01 MC/CUMM (3.8-5.5); Red Cell Distribution Width 18.4 % (9.3-17.3)
[2018-03-21 06:12] LABS: White Blood Count 227.4 T/CUMM (4-12)
[2018-03-21] MEDS: LEVOTHYROXINE 125 MCG TABLET PO SCH (06:21)
[2018-03-21 06:49] LABS: Albumin 3.3 G/DL (3.4-5.0); Bilirubin,Total 1.1 MG/DL (0.2-1.0); Calcium 7.9 MG/DL (8.5-10.1); Osmolality,Calculated 288.7 MOS/KG (273-304); Potassium 3.7 MMOL/L (3.5-5.1); Total Protein 5.9 G/DL (6.4-8.3)
[2018-03-21 06:55] LABS: Lymphocytes 96 % (20-55); Platelet Estimate Decreased; Segmented Neutrophils 2 % (50-85); Total Cells Counted 100
[2018-03-21] MEDS: ALBUTEROL/IPRATROPIUM 3 ML NEB RESP TX SCH ×3 (07:11→19:06)
[2018-03-21] MEDS: INSULIN REGULAR 100 UNIT/ML SUBCUT SCH ×2 (09:30→17:39)
[2018-03-21] MEDS: CHOLESTYRAMINE 4 GM PACK PO SCH ×2 (09:53→21:45)
[2018-03-21] MEDS: FILGRASTIM-SNDZ 300 MCG/0.5 ML SYRINGE SUBCUT SCH (09:53)
[2018-03-21] MEDS: LORATADINE 10 MG TABLET PO SCH (09:53)
[2018-03-21] MEDS: FAMOTIDINE 20 MG TABLET PO SCH (09:53)
[2018-03-21] MEDS: hydrALAZINE 25 MG TABLET PO SCH ×2 (09:53→21:43)
[2018-03-21] MEDS: DOCUSATE SODIUM 100 MG CAPSULE PO SCH (09:53)
[2018-03-21] MEDS: POTASSIUM CHLORIDE 10 MEQ TABLET PO SCH (09:54)
[2018-03-21] MEDS ORDERED: CLINDAMYCIN INJ 600 MG in PREMIX 1 EACH IV SCH (10:30)
[2018-03-21] MEDS: traMADol 50 MG TABLET PO PRN ×2 (13:37→21:44)
[2018-03-21] MEDS: VANCOMYCIN INJ 1,000 MG in SODIUM CHLORIDE 0.9% 250 ML IV SCH (13:38)
[2018-03-21] MEDS: ACETAMINOPHEN 500 MG TABLET PO PRN (22:57)
[2018-03-22] MEDS: MEROPENEM 500 MG in SODIUM CHLORIDE 0.9% 100 ML IV SCH ×2 (00:55→09:35)
[2018-03-22] MEDS: LEVOTHYROXINE 125 MCG TABLET PO SCH (05:41)
[2018-03-22] MEDS: ACETAMINOPHEN 500 MG TABLET PO PRN (05:41)
[2018-03-22] MEDS: VANCOMYCIN INJ 1,000 MG in SODIUM CHLORIDE 0.9% 250 ML IV SCH ×2 (05:45→22:56)
[2018-03-22 05:48] LABS: Basophils # 0.1 10*3/uL (0.0-0.2); Hematocrit 32.7 VOL% (35.7-47.0); Immature Granulocytes % 0.1 %; Immature Granulocytes Absolute 0.18 #; Lymphocytes % 88.8 % (21.3-54.2); Mean Corpuscular HGB Conc 30.6 GM/DL (32-36); Mean Corpuscular Hemoglobin 33 PG (27-34); Mean Corpuscular Volume 108.6 FL (87-102); Monocytes # 20.4 10*3/uL (0.11-0.8); Monocytes % 9.5 % (1.7-12.7); NRBC # 0.02 10*3/uL; Neutrophils # 3.4 10*3/uL (1.4-7.4); Neutrophils % 1.6 % (38.7-73.9); Platelet Count 47 T/CUMM (130-400); Red Blood Count 3.01 MC/CUMM (3.8-5.5); Red Cell Distribution Width 18.3 % (9.3-17.3)
[2018-03-22 05:57] LABS: White Blood Count 214.1 T/CUMM (4-12)
[2018-03-22 06:02] LABS: Calcium 6.7 MG/DL (8.5-10.1); Osmolality,Calculated 280.3 MOS/KG (273-304); Potassium 3.9 MMOL/L (3.5-5.1)
[2018-03-22 06:36] LABS: Segmented Neutrophils 4 % (50-85)
[2018-03-22 06:41] LABS: Band Neutrophils 5 % (0-10); Lymphocytes 84 % (20-55); Smudge Cells Many; Total Cells Counted 100
[2018-03-22 06:42] LABS: Anisocytosis 1+; Macrocytosis 1+
[2018-03-22 06:43] LABS: Platelet Estimate Decreased
[2018-03-22] MEDS: ALBUTEROL/IPRATROPIUM 3 ML NEB RESP TX SCH ×3 (07:30→19:40)
[2018-03-22] MEDS: FILGRASTIM-SNDZ 300 MCG/0.5 ML SYRINGE SUBCUT SCH (09:36)
[2018-03-22] MEDS: DOCUSATE SODIUM 100 MG CAPSULE PO SCH ×2 (09:37→11:43)
[2018-03-22] MEDS: FAMOTIDINE 20 MG TABLET PO SCH (09:37)
[2018-03-22] MEDS: POTASSIUM CHLORIDE 10 MEQ TABLET PO SCH (09:37)
[2018-03-22] MEDS: hydrALAZINE 25 MG TABLET PO SCH ×2 (09:37→20:50)
[2018-03-22] MEDS: CHOLESTYRAMINE 4 GM PACK PO SCH ×4 (09:39→20:53)
[2018-03-22] MEDS: predniSONE 20 MG TABLET PO SCH (09:39)
[2018-03-22] MEDS: LORATADINE 10 MG TABLET PO SCH (09:41)
[2018-03-22] MEDS: INSULIN REGULAR 100 UNIT/ML SUBCUT SCH ×2 (11:42→18:47)
[2018-03-22] MEDS: SODIUM CHLORIDE 0.45% 1,000 ML IV SCH ×2 (19:25→22:59)
[2018-03-23] MEDS: ACETAMINOPHEN 500 MG TABLET PO PRN ×2 (03:42→11:22)
[2018-03-23 05:19] LABS: Calcium 7.6 MG/DL (8.5-10.1); Osmolality,Calculated 282.3 MOS/KG (273-304); Potassium 4.2 MMOL/L (3.5-5.1)
[2018-03-23 05:34] LABS: Basophils # 0.5 10*3/uL (0.0-0.2); Basophils % 0.2 % (0.0-0.8); Hematocrit 34.5 VOL% (35.7-47.0); Hemoglobin 10.2 GM/DL (12.0-16.0); Immature Granulocytes % 0.3 %; Immature Granulocytes Absolute 0.89 #; Lymphocytes # 228.4 10*3/uL (1.4-4.0); Lymphocytes % 89.4 % (21.3-54.2); Mean Corpuscular HGB Conc 29.6 GM/DL (32-36); Mean Corpuscular Hemoglobin 33 PG (27-34); Mean Corpuscular Volume 110.6 FL (87-102); Mean Platelet Volume 11.1 FL (9.6-12.0); Monocytes # 20.7 10*3/uL (0.11-0.8); Monocytes % 8.1 % (1.7-12.7); Platelet Count 50 T/CUMM (130-400); Red Blood Count 3.12 MC/CUMM (3.8-5.5); Red Cell Distribution Width 18.2 % (9.3-17.3)
[2018-03-23 05:36] LABS: White Blood Count 255.5 T/CUMM (4-12)
[2018-03-23] MEDS: LEVOTHYROXINE 125 MCG TABLET PO SCH (05:45)
[2018-03-23 05:46] LABS: Band Neutrophils 1 % (0-10); Hypochromasia 1+; Lymphocytes 97 % (20-55); Platelet Estimate Decreased; Segmented Neutrophils 2 % (50-85); Smudge Cells Moderate; Total Cells Counted 100
[2018-03-23 05:47] LABS: Macrocytosis Slight
[2018-03-23] MEDS: ALBUTEROL/IPRATROPIUM 3 ML NEB RESP TX SCH ×3 (07:05→19:55)
[2018-03-23] MEDS: INSULIN REGULAR 100 UNIT/ML SUBCUT SCH ×2 (08:10→19:40)
[2018-03-23] MEDS: hydrALAZINE 25 MG TABLET PO SCH ×2 (08:11→20:29)
[2018-03-23] MEDS: POTASSIUM CHLORIDE 10 MEQ TABLET PO SCH (08:11)
[2018-03-23] MEDS: LORATADINE 10 MG TABLET PO SCH (08:11)
[2018-03-23] MEDS: FAMOTIDINE 20 MG TABLET PO SCH (08:12)
[2018-03-23] MEDS: FILGRASTIM-SNDZ 300 MCG/0.5 ML SYRINGE SUBCUT SCH (08:12)
[2018-03-23] MEDS ORDERED: CYANOCOBALAMIN 1000 MCG/1 ML VIAL IM ONE (08:29)
[2018-03-23] MEDS: DOCUSATE SODIUM 100 MG CAPSULE PO SCH (09:34)
[2018-03-23] MEDS: CHOLESTYRAMINE 4 GM PACK PO SCH ×2 (09:35→20:30)
[2018-03-23] MEDS: SULFAMETHOX/TRIMETHOPRIM 800-160 MG TABLET PO SCH ×2 (11:17→20:29)
[2018-03-23] MEDS: traMADol 50 MG TABLET PO PRN (16:11)
[2018-03-23] MEDS: VANCOMYCIN INJ 1,000 MG in SODIUM CHLORIDE 0.9% 250 ML IV SCH (18:06)
[2018-03-24 04:16] LABS: Hematocrit 33.9 VOL% (35.7-47.0); Immature Granulocytes % 0.2 %; Immature Granulocytes Absolute 0.58 #; Lymphocytes # 232.7 10*3/uL (1.4-4.0); Lymphocytes % 89.4 % (21.3-54.2); Mean Corpuscular HGB Conc 28.9 GM/DL (32-36); Mean Corpuscular Hemoglobin 32 PG (27-34); Mean Corpuscular Volume 110.4 FL (87-102); Mean Platelet Volume 10.6 FL (9.6-12.0); Monocytes # 22.2 10*3/uL (0.11-0.8); Monocytes % 8.5 % (1.7-12.7); NRBC # 0.02 10*3/uL; Neutrophils # 4.8 10*3/uL (1.4-7.4); Neutrophils % 1.9 % (38.7-73.9); Platelet Count 49 T/CUMM (130-400); Red Blood Count 3.07 MC/CUMM (3.8-5.5)
[2018-03-24 04:27] LABS: Hemoglobin 10.3 GM/DL (12.0-16.0)
[2018-03-24 04:28] LABS: White Blood Count 260.4 T/CUMM (4-12)
[2018-03-24 04:31] LABS: Calcium 8.4 MG/DL (8.5-10.1); Osmolality,Calculated 280.5 MOS/KG (273-304); Potassium 4.2 MMOL/L (3.5-5.1)
[2018-03-24 04:48] LABS: Band Neutrophils 3 % (0-10); Hypochromasia 1+; Lymphocytes 90 % (20-55); Platelet Estimate Decreased; Segmented Neutrophils 6 % (50-85); Smudge Cells Moderate; Total Cells Counted 100
[2018-03-24 04:49] LABS: Macrocytosis Slight
[2018-03-24] MEDS: LEVOTHYROXINE 125 MCG TABLET PO SCH (05:55)
[2018-03-24] MEDS: ACETAMINOPHEN 500 MG TABLET PO PRN ×2 (05:57→11:14)
[2018-03-24] MEDS: ALBUTEROL/IPRATROPIUM 3 ML NEB RESP TX SCH ×3 (07:19→19:36)
[2018-03-24] MEDS: INSULIN REGULAR 100 UNIT/ML SUBCUT SCH ×2 (08:11→17:36)
[2018-03-24] MEDS: SODIUM CHLORIDE 0.45% 1,000 ML IV SCH (08:42)
[2018-03-24] MEDS: FAMOTIDINE 20 MG TABLET PO SCH (09:02)
[2018-03-24] MEDS: POTASSIUM CHLORIDE 10 MEQ TABLET PO SCH (09:02)
[2018-03-24] MEDS: SULFAMETHOX/TRIMETHOPRIM 800-160 MG TABLET PO SCH ×2 (09:02→20:49)
[2018-03-24] MEDS: LORATADINE 10 MG TABLET PO SCH (09:02)
[2018-03-24] MEDS: hydrALAZINE 25 MG TABLET PO SCH ×2 (09:02→20:49)
[2018-03-24] MEDS: CHOLESTYRAMINE 4 GM PACK PO SCH ×2 (09:03→20:53)
[2018-03-24] MEDS: DOCUSATE SODIUM 100 MG CAPSULE PO SCH (09:03)
[2018-03-24] MEDS: FILGRASTIM-SNDZ 300 MCG/0.5 ML SYRINGE SUBCUT SCH (09:04)
[2018-03-24] MEDS: methylPREDNISolone SOD SUC 40 MG/1 ML VIAL IV SCH ×3 (09:04→23:53)
[2018-03-24] MEDS: VANCOMYCIN INJ 1,000 MG in SODIUM CHLORIDE 0.9% 250 ML IV SCH (11:16)
[2018-03-25] MEDS: METHOCARBAMOL 750 MG TABLET PO PRN ×2 (04:20→11:36)
[2018-03-25 05:32] LABS: Albumin 3.3 G/DL (3.4-5.0); Bilirubin,Total 1.1 MG/DL (0.2-1.0); Calcium 8.6 MG/DL (8.5-10.1); Osmolality,Calculated 287.5 MOS/KG (273-304); Potassium 4.7 MMOL/L (3.5-5.1); Total Protein 6.3 G/DL (6.4-8.3)
[2018-03-25] MEDS: VANCOMYCIN INJ 1,000 MG in SODIUM CHLORIDE 0.9% 250 ML IV SCH (05:35)
[2018-03-25] MEDS: LEVOTHYROXINE 125 MCG TABLET PO SCH (05:35)
[2018-03-25] MEDS: ALBUTEROL/IPRATROPIUM 3 ML NEB RESP TX SCH ×2 (07:58→13:10)
[2018-03-25 09:06] LABS: Basophils # 0.3 10*3/uL (0.0-0.2); Basophils % 0.1 % (0.0-0.8); Hematocrit 35.2 VOL% (35.7-47.0); Hemoglobin 10.5 GM/DL (12.0-16.0); Immature Granulocytes % 0.4 %; Immature Granulocytes Absolute 1.31 #; Lymphocytes # 273.3 10*3/uL (1.4-4.0); Lymphocytes % 90.8 % (21.3-54.2); Mean Corpuscular HGB Conc 29.8 GM/DL (32-36); Mean Corpuscular Hemoglobin 33 PG (27-34); Mean Platelet Volume 11.2 FL (9.6-12.0); Monocytes # 18.1 10*3/uL (0.11-0.8); NRBC # 0.08 10*3/uL; Neutrophils # 8.1 10*3/uL (1.4-7.4); Neutrophils % 2.7 % (38.7-73.9); Platelet Count 55 T/CUMM (130-400); Red Blood Count 3.23 MC/CUMM (3.8-5.5); Red Cell Distribution Width 18.6 % (9.3-17.3)
[2018-03-25 09:10] LABS: White Blood Count 301.1 T/CUMM (4-12)
[2018-03-25] MEDS ORDERED: IMMUNE GLOBULIN 10% 20 GM in PREMIX 1 EACH IV ONE (09:24)
[2018-03-25] MEDS: hydrALAZINE 25 MG TABLET PO SCH (10:17)
[2018-03-25] MEDS: LORATADINE 10 MG TABLET PO SCH (10:17)
[2018-03-25] MEDS: FILGRASTIM-SNDZ 300 MCG/0.5 ML SYRINGE SUBCUT SCH (10:17)
[2018-03-25] MEDS: SULFAMETHOX/TRIMETHOPRIM 800-160 MG TABLET PO SCH (10:18)
[2018-03-25] MEDS: POTASSIUM CHLORIDE 10 MEQ TABLET PO SCH (10:18)
[2018-03-25] MEDS: FAMOTIDINE 20 MG TABLET PO SCH (10:18)
[2018-03-25] MEDS: INSULIN REGULAR 100 UNIT/ML SUBCUT SCH ×2 (10:19→13:38)
[2018-03-25] MEDS: CHOLESTYRAMINE 4 GM PACK PO SCH (10:19)
[2018-03-25] MEDS: DOCUSATE SODIUM 100 MG CAPSULE PO SCH (10:19)
[2018-03-25] MEDS ORDERED: HEPARIN LOCK FLUSH 500 UNIT/5 ML SYRINGE IV ONE (14:59)
[2018-03-25 15:42] VITALS: BP 139/68
== END 2018-03-25 16:01 | disposition home health service (06) | DRG 571 ==
LOC: N.ED 07:43 → N.EDINP 11:41 → N.4E 12:59
PROVIDERS: ADMIT Internal Medicine; ATTEND Internal Medicine

== ENCOUNTER 2018-04-28 15:33 | Inpatient (IN) ==
[2018-04-28] MEDS ORDERED: SODIUM CHLORIDE 0.9% 1,950 ML IV ONE (16:32)
[2018-04-28 17:29] LABS: Basophils # 0.1 10*3/uL (0.0-0.2); Hematocrit 28.8 VOL% (35.7-47.0); Hemoglobin 8.5 GM/DL (12.0-16.0); Immature Granulocytes % 0.2 %; Immature Granulocytes Absolute 0.39 #; Lymphocytes # 210.6 10*3/uL (1.4-4.0); Lymphocytes % 93.9 % (21.3-54.2); Mean Corpuscular HGB Conc 29.5 GM/DL (32-36); Mean Corpuscular Hemoglobin 32 PG (27-34); Mean Corpuscular Volume 108.7 FL (87-102); Mean Platelet Volume 10.4 FL (9.6-12.0); Monocytes # 8.4 10*3/uL (0.11-0.8); Monocytes % 3.7 % (1.7-12.7); NRBC # 0.03 10*3/uL; Neutrophils # 4.8 10*3/uL (1.4-7.4); Neutrophils % 2.2 % (38.7-73.9); Platelet Count 106 T/CUMM (130-400); Red Blood Count 2.65 MC/CUMM (3.8-5.5); Red Cell Distribution Width 18.8 % (9.3-17.3)
[2018-04-28 17:31] LABS: White Blood Count 224.2 T/CUMM (4-12)
[2018-04-28 17:35] LABS: INR 1.1; PT Patient Result 11.3 SECS; Partial Thromboplastin Time 39.2 SECS (0-40)
[2018-04-28 17:48] LABS: Lymphocytes 95 % (20-55); Segmented Neutrophils 5 % (50-85); Total Cells Counted 100
[2018-04-28 17:49] LABS: Smudge Cells 2+
[2018-04-28 17:50] LABS: Hypochromasia Slight; Reactive Lymphocytes Few
[2018-04-28 17:51] LABS: Anisocytosis 1+; Platelet Estimate Decreased; Poikilocytosis 1+; Polychromasia Slight
[2018-04-28 17:56] LABS: Bilirubin,Total 1.1 MG/DL (0.2-1.0); Calcium 7.6 MG/DL (8.5-10.1); Lactic Acid 0.9 MMOL/L (0.4-2.0); Osmolality,Calculated 266.4 MOS/KG (273-304); Potassium 4.2 MMOL/L (3.5-5.1); Total Protein 6.3 G/DL (6.4-8.3)
[2018-04-28] MEDS ORDERED: CEFEPIME 2,000 MG in SODIUM CHLORIDE 0.9% 100 ML IV STA (17:56)
[2018-04-28] MEDS ORDERED: VANCOMYCIN INJ 1,000 MG in SODIUM CHLORIDE 0.9% 250 ML IV STA (17:57)
[2018-04-28 18:15] LABS: Apearance,Urine Slightly Hazy (Clear); Bacteria,Urine Few /HPF (Few); Bilirubin,Urine Negative (Negative); Blood, Urine Small mg/dL (Negative); Glucose,Urine (UA) Negative (Negative); Ketones,Urine Negative (Negative); Mucus,Urine Occasional /LPF (Occasional); Nitrite,Urine Negative (Negative); Protein,Urine 100 MG/DL; RBC,Urine 2 /HPF (0-4); Squamous Epithelial Cell,Urine Occasional /HPF (0-10); Urine Color Yellow (Yellow); Urine Specific Gravity 1.014 (1.001-1.035); Urine Urobilinogen < 2.0 EU/DL (0.2-1.0); WBC,Urine 3 /HPF (0-6)
[2018-04-28] MEDS ORDERED: methylPREDNISolone SOD SUC 125 MG/2 ML VIAL ONE (18:25)
[2018-04-28] MEDS ORDERED: ALBUTEROL/IPRATROPIUM 3 ML NEB RESP TX STA (18:26)
[2018-04-28] MEDS ORDERED: methylPREDNISolone SOD SUC 125 MG/2 ML VIAL IV STA (18:26)
[2018-04-28] MEDS ORDERED: GLUCAGON 1 MG VIAL IM PRN (18:31)
[2018-04-28] MEDS ORDERED: ONDANSETRON 4 MG/2 ML VIAL IV PRN (18:31)
[2018-04-28] MEDS ORDERED: DEXTROSE 50% 25 GM/50 ML VIAL IV PRN (18:31)
[2018-04-28] MEDS ORDERED: ALBUTEROL/IPRATROPIUM 3 ML NEB RESP TX PRN (18:35)
[2018-04-28] MEDS: ALBUTEROL/IPRATROPIUM 3 ML NEB RESP TX SCH (18:45)
[2018-04-28] MEDS ORDERED: CYANOCOBALAMIN 1000 MCG/1 ML VIAL IM SCH (19:00)
[2018-04-28] MEDS ORDERED: ERGOCALCIFEROL 50,000 UNIT CAPSULE PO SCH (21:00)
[2018-04-28] MEDS: DOCUSATE SODIUM 100 MG CAPSULE PO SCH (21:38)
[2018-04-28] MEDS: LACTATED RINGERS 1,000 ML IV SCH (21:39)
[2018-04-28] MEDS: BENZONATATE 100 MG CAPSULE PO SCH (21:39)
[2018-04-28] MEDS: hydrALAZINE 25 MG TABLET PO SCH (21:43)
[2018-04-28] MEDS: INSULIN LISPRO 100 UNIT/ML SUBCUT SCH (23:59)
[2018-04-29] MEDS: methylPREDNISolone SOD SUC 40 MG/1 ML VIAL IV SCH ×3 (00:18→14:34)
[2018-04-29] MEDS: ALBUTEROL/IPRATROPIUM 3 ML NEB RESP TX SCH ×4 (01:12→19:38)
[2018-04-29] MEDS: CEFEPIME 2,000 MG in SODIUM CHLORIDE 0.9% 100 ML IV SCH ×2 (05:57→18:17)
[2018-04-29] MEDS: LEVOTHYROXINE 137 MCG TABLET PO SCH (06:02)
[2018-04-29 08:01] LABS: Basophils # 0.1 10*3/uL (0.0-0.2); Hematocrit 27.7 VOL% (35.7-47.0); Hemoglobin 8.1 GM/DL (12.0-16.0); Immature Granulocytes % 0.1 %; Immature Granulocytes Absolute 0.26 #; Lymphocytes # 177.6 10*3/uL (1.4-4.0); Lymphocytes % 95.6 % (21.3-54.2); Mean Corpuscular HGB Conc 29.2 GM/DL (32-36); Mean Corpuscular Hemoglobin 32 PG (27-34); Mean Corpuscular Volume 109.9 FL (87-102); Mean Platelet Volume 10.3 FL (9.6-12.0); Monocytes # 3.5 10*3/uL (0.11-0.8); Monocytes % 1.9 % (1.7-12.7); Neutrophils # 4.4 10*3/uL (1.4-7.4); Neutrophils % 2.4 % (38.7-73.9); Platelet Count 84 T/CUMM (130-400); Red Blood Count 2.52 MC/CUMM (3.8-5.5); Red Cell Distribution Width 18.7 % (9.3-17.3)
[2018-04-29 08:12] LABS: White Blood Count 185.7 T/CUMM (4-12)
[2018-04-29 08:34] LABS: Calcium 7.2 MG/DL (8.5-10.1)
[2018-04-29 08:51] LABS: Atypical Lymphocytes Few; Band Neutrophils 1 % (0-10); Hypochromasia 1+; Lymphocytes 88 % (20-55); Ovalocytes Slight; Platelet Estimate Decreased; Segmented Neutrophils 10 % (50-85); Smudge Cells Moderate; Total Cells Counted 100
[2018-04-29] MEDS: LACTATED RINGERS 1,000 ML IV SCH ×3 (09:00→23:17)
[2018-04-29] MEDS: DOCUSATE SODIUM 100 MG CAPSULE PO SCH ×2 (09:49→20:24)
[2018-04-29] MEDS: GLIMEPIRIDE 2 MG TABLET PO SCH (09:49)
[2018-04-29] MEDS: LORATADINE 10 MG TABLET PO SCH (09:50)
[2018-04-29] MEDS: BENZONATATE 100 MG CAPSULE PO SCH ×3 (09:51→20:24)
[2018-04-29] MEDS: PANTOPRAZOLE 40 MG TABLET PO SCH (09:51)
[2018-04-29] MEDS: hydrALAZINE 25 MG TABLET PO SCH ×2 (09:51→20:24)
[2018-04-29] MEDS: INSULIN LISPRO 100 UNIT/ML SUBCUT SCH ×4 (09:52→20:23)
[2018-04-29] MEDS: VANCOMYCIN INJ 1,000 MG in SODIUM CHLORIDE 0.9% 250 ML IV SCH (20:22)
[2018-04-29] MEDS ORDERED: INSULIN LISPRO 100 UNIT/ML SUBCUT ONE (23:00)
[2018-04-30] MEDS: ALBUTEROL/IPRATROPIUM 3 ML NEB RESP TX SCH ×4 (00:38→19:29)
[2018-04-30] MEDS: LEVOTHYROXINE 137 MCG TABLET PO SCH (06:10)
[2018-04-30] MEDS: CEFEPIME 2,000 MG in SODIUM CHLORIDE 0.9% 100 ML IV SCH ×2 (06:10→18:57)
[2018-04-30] MEDS: methylPREDNISolone SOD SUC 40 MG/1 ML VIAL IV SCH ×4 (06:38→21:08)
[2018-04-30 06:39] LABS: Hematocrit 22.7 VOL% (35.7-47.0); Immature Granulocytes % 0.2 %; Immature Granulocytes Absolute 0.26 #; Lymphocytes # 121.8 10*3/uL (1.4-4.0); Lymphocytes % 92.6 % (21.3-54.2); Mean Corpuscular HGB Conc 28.6 GM/DL (32-36); Mean Corpuscular Hemoglobin 32 PG (27-34); Mean Corpuscular Volume 110.7 FL (87-102); Monocytes # 5.2 10*3/uL (0.11-0.8); Monocytes % 3.9 % (1.7-12.7); Neutrophils # 4.4 10*3/uL (1.4-7.4); Neutrophils % 3.3 % (38.7-73.9); Red Blood Count 2.05 MC/CUMM (3.8-5.5); Red Cell Distribution Width 17.2 % (9.3-17.3)
[2018-04-30 06:43] LABS: Platelet Count 71 T/CUMM (130-400); White Blood Count 131.6 T/CUMM (4-12)
[2018-04-30 06:44] LABS: Hemoglobin 6.5 GM/DL (12.0-16.0)
[2018-04-30 07:05] LABS: Atypical Lymphocytes Few; Hypochromasia 1+; Lymphocytes 94 % (20-55); Ovalocytes Slight; Platelet Estimate Decreased; Segmented Neutrophils 6 % (50-85); Smudge Cells Moderate; Total Cells Counted 100
[2018-04-30 07:07] LABS: Calcium 7.2 MG/DL (8.5-10.1); Osmolality,Calculated 296.3 MOS/KG (273-304); Potassium 4.4 MMOL/L (3.5-5.1)
[2018-04-30] MEDS ORDERED: SODIUM CHLORIDE 0.9% 1,000 ML IV PRN (07:59)
[2018-04-30] MEDS: LORATADINE 10 MG TABLET PO SCH (09:37)
[2018-04-30] MEDS: PANTOPRAZOLE 40 MG TABLET PO SCH (09:37)
[2018-04-30] MEDS: predniSONE 20 MG TABLET PO SCH (09:37)
[2018-04-30] MEDS: BENZONATATE 100 MG CAPSULE PO SCH ×3 (09:38→21:06)
[2018-04-30] MEDS: hydrALAZINE 25 MG TABLET PO SCH ×2 (09:38→21:06)
[2018-04-30] MEDS: GLIMEPIRIDE 2 MG TABLET PO SCH (09:38)
[2018-04-30] MEDS: INSULIN LISPRO 100 UNIT/ML SUBCUT SCH ×4 (09:39→21:07)
[2018-04-30] MEDS: DOCUSATE SODIUM 100 MG CAPSULE PO SCH ×2 (09:39→21:11)
[2018-04-30] MEDS: LACTATED RINGERS 1,000 ML IV SCH (13:15)
[2018-04-30] MEDS: VANCOMYCIN INJ 1,000 MG in SODIUM CHLORIDE 0.9% 250 ML IV SCH ×2 (19:52→19:53)
[2018-05-01] MEDS: ALBUTEROL/IPRATROPIUM 3 ML NEB RESP TX SCH ×5 (00:39→19:29)
[2018-05-01] MEDS: ACETAMINOPHEN 325 MG TABLET PO PRN ×2 (01:44→18:37)
[2018-05-01 04:37] LABS: Hematocrit 28.6 VOL% (35.7-47.0); Hemoglobin 8.4 GM/DL (12.0-16.0); Immature Granulocytes % 0.1 %; Lymphocytes # 135.7 10*3/uL (1.4-4.0); Lymphocytes % 95.5 % (21.3-54.2); Mean Corpuscular HGB Conc 29.4 GM/DL (32-36); Mean Corpuscular Hemoglobin 31 PG (27-34); Mean Corpuscular Volume 104.8 FL (87-102); Mean Platelet Volume 11.2 FL (9.6-12.0); Monocytes # 2.2 10*3/uL (0.11-0.8); Monocytes % 1.5 % (1.7-12.7); Neutrophils # 4.1 10*3/uL (1.4-7.4); Neutrophils % 2.9 % (38.7-73.9); Platelet Count 66 T/CUMM (130-400); Red Blood Count 2.73 MC/CUMM (3.8-5.5); Red Cell Distribution Width 20.8 % (9.3-17.3)
[2018-05-01 04:50] LABS: Calcium 7.7 MG/DL (8.5-10.1); Osmolality,Calculated 293.3 MOS/KG (273-304); Potassium 4.1 MMOL/L (3.5-5.1)
[2018-05-01 04:53] LABS: Albumin 2.5 G/DL (3.4-5.0); Bilirubin,Total 0.7 MG/DL (0.2-1.0); Calcium 7.9 MG/DL (8.5-10.1); Osmolality,Calculated 292.3 MOS/KG (273-304); Potassium 4.2 MMOL/L (3.5-5.1); Total Protein 5.6 G/DL (6.4-8.3)
[2018-05-01 04:56] LABS: White Blood Count 142.1 T/CUMM (4-12)
[2018-05-01] MEDS: methylPREDNISolone SOD SUC 40 MG/1 ML VIAL IV SCH ×3 (05:56→21:05)
[2018-05-01] MEDS: CEFEPIME 2,000 MG in SODIUM CHLORIDE 0.9% 100 ML IV SCH ×2 (05:59→17:11)
[2018-05-01 07:24] LABS: Atypical Lymphocytes 2+; Lymphocytes 95 % (20-55); Platelet Estimate Decreased; Segmented Neutrophils 3 % (50-85); Smudge Cells 1+; Total Cells Counted 100
[2018-05-01] MEDS ORDERED: GLUCAGON 1 MG VIAL IM PRN ×2 (08:39→10:57)
[2018-05-01] MEDS ORDERED: DEXTROSE 50% 25 GM/50 ML VIAL IV PRN ×2 (08:39→10:57)
[2018-05-01] MEDS: GLIMEPIRIDE 2 MG TABLET PO SCH (09:08)
[2018-05-01] MEDS: PANTOPRAZOLE 40 MG TABLET PO SCH (09:08)
[2018-05-01] MEDS: hydrALAZINE 25 MG TABLET PO SCH ×2 (09:08→21:04)
[2018-05-01] MEDS: BENZONATATE 100 MG CAPSULE PO SCH ×3 (09:08→21:04)
[2018-05-01] MEDS: LEVOTHYROXINE 137 MCG TABLET PO SCH (09:08)
[2018-05-01] MEDS: LORATADINE 10 MG TABLET PO SCH (09:08)
[2018-05-01] MEDS: INSULIN LISPRO 100 UNIT/ML SUBCUT SCH ×4 (09:09→21:05)
[2018-05-01] MEDS: DOCUSATE SODIUM 100 MG CAPSULE PO SCH ×2 (09:09→21:08)
[2018-05-01] MEDS ORDERED: INSULIN LISPRO 100 UNIT/ML SUBCUT SCH ×2 (11:30)
[2018-05-01] MEDS: VANCOMYCIN INJ 1,000 MG in SODIUM CHLORIDE 0.9% 250 ML IV SCH (14:34)
[2018-05-01] MEDS: LACTATED RINGERS 1,000 ML IV SCH ×2 (18:38)
[2018-05-02] MEDS: ALBUTEROL/IPRATROPIUM 3 ML NEB RESP TX SCH ×4 (00:50→19:12)
[2018-05-02] MEDS: methylPREDNISolone SOD SUC 40 MG/1 ML VIAL IV SCH ×3 (06:10→17:08)
[2018-05-02] MEDS: LEVOTHYROXINE 137 MCG TABLET PO SCH (06:12)
[2018-05-02] MEDS: CEFEPIME 2,000 MG in SODIUM CHLORIDE 0.9% 100 ML IV SCH ×2 (06:14→17:09)
[2018-05-02 07:48] LABS: Hematocrit 30.3 VOL% (35.7-47.0); Immature Granulocytes % 0.1 %; Immature Granulocytes Absolute 0.12 #; Lymphocytes % 95.1 % (21.3-54.2); Mean Corpuscular HGB Conc 29.7 GM/DL (32-36); Mean Corpuscular Hemoglobin 31 PG (27-34); Mean Corpuscular Volume 104.5 FL (87-102); Mean Platelet Volume 11.2 FL (9.6-12.0); Monocytes # 2.9 10*3/uL (0.11-0.8); Monocytes % 2.2 % (1.7-12.7); NRBC # 0.02 10*3/uL; Neutrophils # 3.4 10*3/uL (1.4-7.4); Neutrophils % 2.6 % (38.7-73.9); Platelet Count 62 T/CUMM (130-400); Red Cell Distribution Width 19.8 % (9.3-17.3)
[2018-05-02 07:53] LABS: White Blood Count 128.4 T/CUMM (4-12)
[2018-05-02] MEDS: INSULIN LISPRO 100 UNIT/ML SUBCUT SCH ×4 (07:54→20:54)
[2018-05-02 08:16] LABS: Albumin 2.7 G/DL (3.4-5.0); Bilirubin,Total 0.5 MG/DL (0.2-1.0); Calcium 8.2 MG/DL (8.5-10.1); Osmolality,Calculated 284.4 MOS/KG (273-304); Potassium 4.1 MMOL/L (3.5-5.1)
[2018-05-02 08:23] LABS: Lymphocytes 93 % (20-55); Segmented Neutrophils 7 % (50-85); Total Cells Counted 100
[2018-05-02 08:24] LABS: Platelet Estimate Decreased; Smudge Cells 2+
[2018-05-02] MEDS: GLIMEPIRIDE 2 MG TABLET PO SCH (08:56)
[2018-05-02] MEDS: PANTOPRAZOLE 40 MG TABLET PO SCH (08:56)
[2018-05-02] MEDS: BENZONATATE 100 MG CAPSULE PO SCH ×3 (08:56→20:53)
[2018-05-02] MEDS: hydrALAZINE 25 MG TABLET PO SCH ×2 (08:57→20:54)
[2018-05-02] MEDS: VANCOMYCIN INJ 1,000 MG in SODIUM CHLORIDE 0.9% 250 ML IV SCH (08:57)
[2018-05-02] MEDS: LORATADINE 10 MG TABLET PO SCH (08:57)
[2018-05-02] MEDS: predniSONE 20 MG TABLET PO SCH (08:57)
[2018-05-02] MEDS: DOCUSATE SODIUM 100 MG CAPSULE PO SCH ×2 (08:58→20:56)
[2018-05-02] MEDS: LACTATED RINGERS 1,000 ML IV SCH (16:43)
[2018-05-03] MEDS: ALBUTEROL/IPRATROPIUM 3 ML NEB RESP TX SCH ×4 (01:08→19:04)
[2018-05-03 01:26] LABS: Hematocrit 29.4 VOL% (35.7-47.0); Hemoglobin 9.1 GM/DL (12.0-16.0); Immature Granulocytes % 0.1 %; Immature Granulocytes Absolute 0.12 #; Lymphocytes # 129.6 10*3/uL (1.4-4.0); Lymphocytes % 95.8 % (21.3-54.2); Mean Corpuscular Hemoglobin 32 PG (27-34); Mean Corpuscular Volume 104.6 FL (87-102); Mean Platelet Volume 10.9 FL (9.6-12.0); Monocytes # 2.4 10*3/uL (0.11-0.8); Monocytes % 1.8 % (1.7-12.7); Neutrophils # 3.2 10*3/uL (1.4-7.4); Neutrophils % 2.3 % (38.7-73.9); Platelet Count 54 T/CUMM (130-400); Red Blood Count 2.81 MC/CUMM (3.8-5.5); Red Cell Distribution Width 19.1 % (9.3-17.3)
[2018-05-03 01:29] LABS: White Blood Count 135.3 T/CUMM (4-12)
[2018-05-03 01:37] LABS: Calcium 7.6 MG/DL (8.5-10.1); Osmolality,Calculated 281.4 MOS/KG (273-304); Potassium 4.4 MMOL/L (3.5-5.1)
[2018-05-03 01:40] LABS: Albumin 2.5 G/DL (3.4-5.0); Bilirubin,Total 0.5 MG/DL (0.2-1.0); Calcium 7.8 MG/DL (8.5-10.1); Osmolality,Calculated 279.5 MOS/KG (273-304); Potassium 4.4 MMOL/L (3.5-5.1); Total Protein 5.7 G/DL (6.4-8.3)
[2018-05-03] MEDS: VANCOMYCIN INJ 1,000 MG in SODIUM CHLORIDE 0.9% 250 ML IV SCH (01:49)
[2018-05-03] MEDS ORDERED: VANCOMYCIN INJ 1,000 MG in SODIUM CHLORIDE 0.9% 250 ML IV SCH (04:00)
[2018-05-03 04:39] LABS: Lymphocytes 99 % (20-55); Total Cells Counted 100
[2018-05-03 04:40] LABS: Anisocytosis 1+
[2018-05-03 04:41] LABS: Platelet Estimate Decreased
[2018-05-03] MEDS: methylPREDNISolone SOD SUC 40 MG/1 ML VIAL IV SCH (06:07)
[2018-05-03] MEDS: CEFEPIME 2,000 MG in SODIUM CHLORIDE 0.9% 100 ML IV SCH (06:09)
[2018-05-03] MEDS: LEVOTHYROXINE 137 MCG TABLET PO SCH (06:09)
[2018-05-03] MEDS ORDERED: methylPREDNISolone SOD SUC 40 MG/1 ML VIAL IV SCH (09:00)
[2018-05-03] MEDS: INSULIN LISPRO 100 UNIT/ML SUBCUT SCH ×2 (09:07→20:45)
[2018-05-03] MEDS: BENZONATATE 100 MG CAPSULE PO SCH ×3 (09:30→20:47)
[2018-05-03] MEDS: PANTOPRAZOLE 40 MG TABLET PO SCH (09:30)
[2018-05-03] MEDS: GLIMEPIRIDE 2 MG TABLET PO SCH (09:30)
[2018-05-03] MEDS: LORATADINE 10 MG TABLET PO SCH (09:31)
[2018-05-03] MEDS: DOCUSATE SODIUM 100 MG CAPSULE PO SCH ×3 (09:31→20:51)
[2018-05-03] MEDS: hydrALAZINE 25 MG TABLET PO SCH ×2 (09:31→20:47)
[2018-05-03] MEDS: DEXT 5% NACL 0.45% KCL 20 MEQ 20 MEQ/1,000 ML BAG IV SCH (09:36)
[2018-05-03] MEDS: LEVOFLOXACIN INJ 750 MG in PREMIX 1 EACH IV SCH (09:36)
[2018-05-03] MEDS: LACTATED RINGERS 1,000 ML IV SCH (11:24)
[2018-05-03] MEDS: VANCOMYCIN 50 MG/ML 60 ML/BOTTLE PO SCH (18:08)
[2018-05-03] MEDS ORDERED: VANCOMYCIN 50 MG/ML 60 ML/BOTTLE PO SCH (22:00)
[2018-05-04] MEDS: VANCOMYCIN 50 MG/ML 60 ML/BOTTLE PO SCH ×4 (00:25→18:32)
[2018-05-04] MEDS: ALBUTEROL/IPRATROPIUM 3 ML NEB RESP TX SCH ×3 (00:27→19:15)
[2018-05-04] MEDS: DEXT 5% NACL 0.45% KCL 20 MEQ 20 MEQ/1,000 ML BAG IV SCH ×2 (03:50→12:16)
[2018-05-04 05:52] LABS: Hematocrit 29.7 VOL% (35.7-47.0); Hemoglobin 8.9 GM/DL (12.0-16.0); Immature Granulocytes % 0.1 %; Immature Granulocytes Absolute 0.08 #; Lymphocytes # 112.6 10*3/uL (1.4-4.0); Lymphocytes % 95.5 % (21.3-54.2); Mean Corpuscular Hemoglobin 32 PG (27-34); Mean Corpuscular Volume 106.5 FL (87-102); Mean Platelet Volume 11.2 FL (9.6-12.0); Monocytes % 2.5 % (1.7-12.7); Neutrophils # 2.2 10*3/uL (1.4-7.4); Neutrophils % 1.9 % (38.7-73.9); Platelet Count 51 T/CUMM (130-400); Red Blood Count 2.79 MC/CUMM (3.8-5.5); Red Cell Distribution Width 18.4 % (9.3-17.3)
[2018-05-04] MEDS: LEVOTHYROXINE 137 MCG TABLET PO SCH (06:04)
[2018-05-04 06:06] LABS: White Blood Count 117.9 T/CUMM (4-12)
[2018-05-04 06:11] LABS: Albumin 2.4 G/DL (3.4-5.0); Bilirubin,Total 0.6 MG/DL (0.2-1.0); Calcium 7.4 MG/DL (8.5-10.1); Osmolality,Calculated 286.3 MOS/KG (273-304); Potassium 3.5 MMOL/L (3.5-5.1); Total Protein 5.5 G/DL (6.4-8.3)
[2018-05-04 06:12] LABS: Lymphocytes 93 % (20-55); Segmented Neutrophils 6 % (50-85); Total Cells Counted 100
[2018-05-04 06:13] LABS: Atypical Lymphocytes Few; Smudge Cells Few
[2018-05-04 06:14] LABS: Anisocytosis 1+; Macrocytosis 1+; Platelet Estimate Decreased
[2018-05-04] MEDS: LEVOFLOXACIN INJ 750 MG in PREMIX 1 EACH IV SCH (09:18)
[2018-05-04] MEDS: DOCUSATE SODIUM 100 MG CAPSULE PO SCH ×3 (09:19→20:23)
[2018-05-04] MEDS: hydrALAZINE 25 MG TABLET PO SCH ×2 (09:19→20:24)
[2018-05-04] MEDS: BENZONATATE 100 MG CAPSULE PO SCH ×3 (09:19→20:24)
[2018-05-04] MEDS: predniSONE 20 MG TABLET PO SCH (09:19)
[2018-05-04] MEDS: PANTOPRAZOLE 40 MG TABLET PO SCH (09:19)
[2018-05-04] MEDS: LORATADINE 10 MG TABLET PO SCH (09:19)
[2018-05-04] MEDS: GLIMEPIRIDE 2 MG TABLET PO SCH (09:19)
[2018-05-04] MEDS: INSULIN LISPRO 100 UNIT/ML SUBCUT SCH ×4 (09:23→20:26)
[2018-05-05] MEDS: VANCOMYCIN 50 MG/ML 60 ML/BOTTLE PO SCH ×3 (00:33→13:45)
[2018-05-05] MEDS: ALBUTEROL/IPRATROPIUM 3 ML NEB RESP TX SCH ×2 (00:36→07:31)
[2018-05-05 04:19] VITALS: BP 182/76
[2018-05-05 05:46] LABS: Basophils # 0.1 10*3/uL (0.0-0.2); Hematocrit 31.7 VOL% (35.7-47.0); Hemoglobin 9.7 GM/DL (12.0-16.0); Immature Granulocytes Absolute 0.06 #; Lymphocytes # 139.4 10*3/uL (1.4-4.0); Lymphocytes % 95.1 % (21.3-54.2); Mean Corpuscular HGB Conc 30.6 GM/DL (32-36); Mean Corpuscular Hemoglobin 33 PG (27-34); Mean Corpuscular Volume 106.4 FL (87-102); Mean Platelet Volume 11.1 FL (9.6-12.0); Monocytes # 5.5 10*3/uL (0.11-0.8); Monocytes % 3.7 % (1.7-12.7); Neutrophils # 1.6 10*3/uL (1.4-7.4); Neutrophils % 1.2 % (38.7-73.9); Platelet Count 51 T/CUMM (130-400); Red Blood Count 2.98 MC/CUMM (3.8-5.5); Red Cell Distribution Width 18.6 % (9.3-17.3)
[2018-05-05 05:49] LABS: White Blood Count 146.6 T/CUMM (4-12)
[2018-05-05] MEDS: LEVOTHYROXINE 137 MCG TABLET PO SCH (06:10)
[2018-05-05 06:19] LABS: Albumin 2.5 G/DL (3.4-5.0); Calcium 7.3 MG/DL (8.5-10.1); Osmolality,Calculated 271.2 MOS/KG (273-304); Potassium 4.1 MMOL/L (3.5-5.1); Total Protein 5.3 G/DL (6.4-8.3)
[2018-05-05 06:24] LABS: Lymphocytes 98 % (20-55); Segmented Neutrophils 1 % (50-85); Total Cells Counted 100
[2018-05-05 06:25] LABS: Atypical Lymphocytes Moderate; Macrocytosis 1+; Platelet Estimate Decreased; Smudge Cells Moderate
[2018-05-05] MEDS: INSULIN LISPRO 100 UNIT/ML SUBCUT SCH ×2 (09:19→12:59)
[2018-05-05] MEDS: hydrALAZINE 25 MG TABLET PO SCH (09:22)
[2018-05-05] MEDS: PANTOPRAZOLE 40 MG TABLET PO SCH (09:22)
[2018-05-05] MEDS: BENZONATATE 100 MG CAPSULE PO SCH (09:22)
[2018-05-05] MEDS: GLIMEPIRIDE 2 MG TABLET PO SCH (09:22)
[2018-05-05] MEDS: LORATADINE 10 MG TABLET PO SCH (09:23)
[2018-05-05] MEDS: LEVOFLOXACIN INJ 750 MG in PREMIX 1 EACH IV SCH (09:23)
[2018-05-05] MEDS: DOCUSATE SODIUM 100 MG CAPSULE PO SCH (09:29)
[2018-05-05] MEDS ORDERED: HEPARIN LOCK FLUSH 500 UNIT/5 ML SYRINGE IV ONE ×2 (10:55→11:10)
== END 2018-05-05 13:40 | disposition home health service (06) | DRG 202 ==
LOC: N.ED 15:33 → N.EDINP 18:31 → N.4E 20:30
PROVIDERS: ADMIT Internal Medicine; ATTEND Internal Medicine

== ENCOUNTER 2018-09-25 12:04 | Inpatient (IN) ==
[2018-09-25 14:04] LABS: Hematocrit 26.7 VOL% (35.7-47.0); Immature Granulocytes % 0.3 %; Immature Granulocytes Absolute 0.37 #; Lymphocytes # 123.2 10*3/uL (1.4-4.0); Lymphocytes % 95.8 % (21.3-54.2); Mean Corpuscular Hemoglobin 30 PG (27-34); Mean Corpuscular Volume 98.5 FL (87-102); Mean Platelet Volume 9.9 FL (9.6-12.0); Monocytes # 1.4 10*3/uL (0.11-0.8); Monocytes % 1.1 % (1.7-12.7); Neutrophils # 3.5 10*3/uL (1.4-7.4); Neutrophils % 2.8 % (38.7-73.9); Platelet Count 140 T/CUMM (130-400); Red Blood Count 2.71 MC/CUMM (3.8-5.5); Red Cell Distribution Width 16.5 % (9.3-17.3)
[2018-09-25 14:07] LABS: White Blood Count 128.6 T/CUMM (4-12)
[2018-09-25] MEDS: LACTATED RINGERS 1,000 ML IV SCH ×3 (14:25→21:49)
[2018-09-25 14:26] LABS: Albumin 2.6 G/DL (3.4-5.0); Bilirubin,Total 1.1 MG/DL (0.2-1.0); Calcium 8.6 MG/DL (8.5-10.1); Osmolality,Calculated 273.8 MOS/KG (273-304); Total Protein 6.5 G/DL (6.4-8.3)
[2018-09-25 14:36] LABS: Apearance,Urine CLOUDY (Clear); Bilirubin,Urine Negative (Negative); Blood, Urine Negative (Negative); Glucose,Urine (UA) >=500 mg/dL (Negative); Ketones,Urine Negative (Negative); Nitrite,Urine Negative (Negative); Protein,Urine 100 MG/DL; RBC,Urine 3 /HPF (0-4); Squamous Epithelial Cell,Urine Occasional /HPF (0-10); Urine Specific Gravity 1.017 (1.001-1.035); WBC,Urine 2 /HPF (0-6)
[2018-09-25 14:37] LABS: Urine Color Yellow (Yellow)
[2018-09-25] MEDS ORDERED: GLUCAGON 1 MG VIAL IM PRN (14:54)
[2018-09-25] MEDS ORDERED: ACETAMINOPHEN 325 MG TABLET PO PRN (14:54)
[2018-09-25] MEDS ORDERED: DEXTROSE 50% 25 GM/50 ML VIAL IV PRN (14:54)
[2018-09-25] MEDS ORDERED: ONDANSETRON 4 MG/2 ML VIAL IV PRN (14:54)
[2018-09-25 15:21] LABS: Lymphocytes 95 % (20-55); Platelet Estimate Normal; Segmented Neutrophils 5 % (50-85); Total Cells Counted 100
[2018-09-25 15:22] LABS: Atypical Lymphocytes Few; Hypochromasia Slight; Macrocytosis Slight; Smudge Cells Moderate
[2018-09-25] MEDS: DOCUSATE SODIUM 100 MG CAPSULE PO SCH (20:38)
[2018-09-25] MEDS: hydrALAZINE 25 MG TABLET PO SCH (20:38)
[2018-09-25] MEDS: cefTRIAXone 1,000 MG in SYRINGE 1 EACH IV SCH (20:39)
[2018-09-25] MEDS: INSULIN LISPRO 100 UNIT/ML SUBCUT SCH (21:42)
[2018-09-26] MEDS: LEVOTHYROXINE 150 MCG TABLET PO SCH (05:46)
[2018-09-26] MEDS: LACTATED RINGERS 1,000 ML IV SCH ×2 (05:47→20:44)
[2018-09-26 06:08] LABS: Immature Granulocytes % 0.2 %; Immature Granulocytes Absolute 0.23 #; Lymphocytes # 105.3 10*3/uL (1.4-4.0); Lymphocytes % 96.6 % (21.3-54.2); Mean Corpuscular HGB Conc 29.2 GM/DL (32-36); Mean Corpuscular Hemoglobin 29 PG (27-34); Mean Corpuscular Volume 99.6 FL (87-102); Mean Platelet Volume 10.2 FL (9.6-12.0); Monocytes % 0.9 % (1.7-12.7); Neutrophils # 2.4 10*3/uL (1.4-7.4); Neutrophils % 2.3 % (38.7-73.9); Platelet Count 125 T/CUMM (130-400); Red Blood Count 2.41 MC/CUMM (3.8-5.5); Red Cell Distribution Width 16.6 % (9.3-17.3)
[2018-09-26 06:16] LABS: White Blood Count 108.9 T/CUMM (4-12)
[2018-09-26 06:40] LABS: Albumin 2.3 G/DL (3.4-5.0); Bilirubin,Total 0.6 MG/DL (0.2-1.0); Calcium 7.9 MG/DL (8.5-10.1); Lymphocytes 98 % (20-55); Osmolality,Calculated 264.5 MOS/KG (273-304); Potassium 3.6 MMOL/L (3.5-5.1); Segmented Neutrophils 2 % (50-85); Smudge Cells Moderate; Total Cells Counted 100; Total Protein 5.6 G/DL (6.4-8.3)
[2018-09-26 06:41] LABS: Atypical Lymphocytes Few; Hypochromasia 1+; Macrocytosis Slight; Ovalocytes Slight; Platelet Estimate Normal
[2018-09-26] MEDS: GLIMEPIRIDE 2 MG TABLET PO SCH (09:35)
[2018-09-26] MEDS: PANTOPRAZOLE 40 MG TABLET PO SCH (09:36)
[2018-09-26] MEDS: LORATADINE 10 MG TABLET PO SCH (09:36)
[2018-09-26] MEDS: hydrALAZINE 25 MG TABLET PO SCH ×2 (09:36→20:40)
[2018-09-26] MEDS: DOCUSATE SODIUM 100 MG CAPSULE PO SCH ×2 (09:36→20:40)
[2018-09-26] MEDS: INSULIN LISPRO 100 UNIT/ML SUBCUT SCH ×4 (09:37→20:46)
[2018-09-26] MEDS ORDERED: SODIUM CHLORIDE 0.9% 1,000 ML IV PRN (12:34)
[2018-09-26] MEDS: cefTRIAXone 1,000 MG in SYRINGE 1 EACH IV SCH (20:44)
[2018-09-27] MEDS ORDERED: HEPARIN LOCK FLUSH 500 UNIT/5 ML SYRINGE IV ONE (03:44)
[2018-09-27] MEDS ORDERED: HEPARIN LOCK FLUSH 500 UNIT/5 ML SYRINGE IV PRN (04:19)
[2018-09-27] MEDS: LACTATED RINGERS 1,000 ML IV SCH ×3 (04:41→22:31)
[2018-09-27 04:45] LABS: Eosinophils # 0.1 10*3/uL (0.0-0.87); Hematocrit 30.8 VOL% (35.7-47.0); Hemoglobin 9.1 GM/DL (12.0-16.0); Immature Granulocytes % 0.2 %; Immature Granulocytes Absolute 0.23 #; Lymphocytes # 99.4 10*3/uL (1.4-4.0); Lymphocytes % 95.9 % (21.3-54.2); Mean Corpuscular HGB Conc 29.5 GM/DL (32-36); Mean Corpuscular Hemoglobin 28 PG (27-34); Mean Corpuscular Volume 96.3 FL (87-102); Mean Platelet Volume 9.8 FL (9.6-12.0); Monocytes # 1.9 10*3/uL (0.11-0.8); Monocytes % 1.9 % (1.7-12.7); Platelet Count 108 T/CUMM (130-400); Red Cell Distribution Width 17.3 % (9.3-17.3)
[2018-09-27 04:55] LABS: White Blood Count 103.6 T/CUMM (4-12)
[2018-09-27 05:00] LABS: Albumin 2.2 G/DL (3.4-5.0); Bilirubin,Total 0.7 MG/DL (0.2-1.0); Calcium 7.4 MG/DL (8.5-10.1); Osmolality,Calculated 256.8 MOS/KG (273-304); Potassium 3.8 MMOL/L (3.5-5.1); Total Protein 5.3 G/DL (6.4-8.3)
[2018-09-27 05:26] LABS: Lymphocytes 97 % (20-55); Segmented Neutrophils 3 % (50-85); Total Cells Counted 100
[2018-09-27 05:27] LABS: Atypical Lymphocytes Few; Hypochromasia Slight; Macrocytosis 1+; Ovalocytes Slight; Smudge Cells Moderate
[2018-09-27 05:28] LABS: Platelet Estimate Decreased
[2018-09-27] MEDS: LEVOTHYROXINE 150 MCG TABLET PO SCH (06:03)
[2018-09-27] MEDS ORDERED: ALBUTEROL/IPRATROPIUM 3 ML NEB RESP TX PRN (08:17)
[2018-09-27] MEDS: INSULIN LISPRO 100 UNIT/ML SUBCUT SCH ×4 (08:49→21:30)
[2018-09-27] MEDS: LORATADINE 10 MG TABLET PO SCH (08:52)
[2018-09-27] MEDS: hydrALAZINE 25 MG TABLET PO SCH ×2 (08:52→21:30)
[2018-09-27] MEDS: GLIMEPIRIDE 2 MG TABLET PO SCH (08:53)
[2018-09-27] MEDS: PANTOPRAZOLE 40 MG TABLET PO SCH (08:53)
[2018-09-27] MEDS: DOCUSATE SODIUM 100 MG CAPSULE PO SCH ×2 (08:53→21:30)
[2018-09-27] MEDS ORDERED: predniSONE 10 MG TABLET PO SCH (09:00)
[2018-09-27] MEDS: ALBUTEROL/IPRATROPIUM 3 ML NEB RESP TX SCH ×2 (13:15→19:47)
[2018-09-27] MEDS ORDERED: [UNRECOGNIZED DRUG - OTHER] PO SCH (19:18)
[2018-09-27] MEDS: cefTRIAXone 1,000 MG in SYRINGE 1 EACH IV SCH (22:31)
[2018-09-28] MEDS: LEVOTHYROXINE 150 MCG TABLET PO SCH (06:39)
[2018-09-28] MEDS: LACTATED RINGERS 1,000 ML IV SCH (06:39)
[2018-09-28] MEDS: ALBUTEROL/IPRATROPIUM 3 ML NEB RESP TX SCH (07:14)
[2018-09-28] MEDS: INSULIN LISPRO 100 UNIT/ML SUBCUT SCH (08:15)
[2018-09-28 08:16] LABS: Hematocrit 31.6 VOL% (35.7-47.0); Hemoglobin 9.3 GM/DL (12.0-16.0); Immature Granulocytes % 0.2 %; Immature Granulocytes Absolute 0.21 #; Lymphocytes # 93.7 10*3/uL (1.4-4.0); Lymphocytes % 96.3 % (21.3-54.2); Mean Corpuscular HGB Conc 29.4 GM/DL (32-36); Mean Corpuscular Hemoglobin 28 PG (27-34); Mean Corpuscular Volume 96.6 FL (87-102); Mean Platelet Volume 10.1 FL (9.6-12.0); Monocytes # 1.2 10*3/uL (0.11-0.8); Monocytes % 1.2 % (1.7-12.7); Neutrophils # 2.2 10*3/uL (1.4-7.4); Neutrophils % 2.3 % (38.7-73.9); Platelet Count 115 T/CUMM (130-400); Red Blood Count 3.27 MC/CUMM (3.8-5.5); Red Cell Distribution Width 17.3 % (9.3-17.3)
[2018-09-28 08:18] LABS: White Blood Count 97.4 T/CUMM (4-12)
[2018-09-28 08:28] LABS: Albumin 2.2 G/DL (3.4-5.0); Bilirubin,Total 0.6 MG/DL (0.2-1.0); Calcium 7.8 MG/DL (8.5-10.1); Osmolality,Calculated 265.4 MOS/KG (273-304); Potassium 3.8 MMOL/L (3.5-5.1); Total Protein 5.5 G/DL (6.4-8.3)
[2018-09-28 08:29] VITALS: BP 150/74
[2018-09-28 08:37] LABS: Lymphocytes 95 % (20-55); Total Cells Counted 100
[2018-09-28 08:38] LABS: Atypical Lymphocytes Few; Hypochromasia 1+; Platelet Estimate Decreased; Segmented Neutrophils 4 % (50-85); Smudge Cells Moderate
[2018-09-28 08:39] LABS: Macrocytosis Slight
[2018-09-28] MEDS: GLIMEPIRIDE 2 MG TABLET PO SCH (08:53)
[2018-09-28] MEDS: hydrALAZINE 25 MG TABLET PO SCH (08:53)
[2018-09-28] MEDS: LORATADINE 10 MG TABLET PO SCH (08:53)
[2018-09-28] MEDS: PANTOPRAZOLE 40 MG TABLET PO SCH (08:54)
[2018-09-28] MEDS: DOCUSATE SODIUM 100 MG CAPSULE PO SCH (08:54)
[2018-09-29] MEDS ORDERED: ERGOCALCIFEROL 50,000 UNIT CAPSULE PO SCH (09:00)
[2018-10-18] MEDS ORDERED: CYANOCOBALAMIN 1000 MCG/1 ML VIAL IM SCH (09:00)
== END 2018-09-28 11:26 | disposition home or self-care (01) | DRG 202 ==
LOC: N.ED 12:04 → N.EDINP 14:57 → N.4E 16:20
PROVIDERS: ADMIT Internal Medicine; ATTEND Internal Medicine

== ENCOUNTER 2018-09-29 04:47 | Inpatient (IN) ==
[2018-09-29] MEDS ORDERED: CEFEPIME 2,000 MG in SODIUM CHLORIDE 0.9% 100 ML IV STA ×2 (05:30→05:34)
[2018-09-29] MEDS ORDERED: VANCOMYCIN INJ 1,000 MG in SODIUM CHLORIDE 0.9% 250 ML IV STA ×2 (05:30→05:34)
[2018-09-29 05:44] LABS: Basophils # 0.1 10*3/uL (0.0-0.2); Hematocrit 30.6 VOL% (35.7-47.0); Hemoglobin 9.3 GM/DL (12.0-16.0); Immature Granulocytes % 0.2 %; Immature Granulocytes Absolute 0.23 #; Lymphocytes # 106.7 10*3/uL (1.4-4.0); Lymphocytes % 96.1 % (21.3-54.2); Mean Corpuscular HGB Conc 30.4 GM/DL (32-36); Mean Corpuscular Hemoglobin 28 PG (27-34); Mean Corpuscular Volume 93.3 FL (87-102); Mean Platelet Volume 9.6 FL (9.6-12.0); Monocytes # 1.7 10*3/uL (0.11-0.8); Monocytes % 1.6 % (1.7-12.7); Neutrophils # 2.3 10*3/uL (1.4-7.4); Neutrophils % 2.1 % (38.7-73.9); Platelet Count 121 T/CUMM (130-400); Red Blood Count 3.28 MC/CUMM (3.8-5.5); Red Cell Distribution Width 16.9 % (9.3-17.3)
[2018-09-29 06:03] LABS: Apearance,Urine CLEAR (Clear); Bilirubin,Urine Negative (Negative); Blood, Urine Negative (Negative); Glucose,Urine (UA) Negative (Negative); Ketones,Urine Negative (Negative); Nitrite,Urine Negative (Negative); Protein,Urine 100 MG/DL; RBC,Urine 5 /HPF (0-4); Urine Color Yellow (Yellow); Urine Specific Gravity 1.014 (1.001-1.035); WBC,Urine <1 /HPF (0-6)
[2018-09-29 06:06] LABS: Albumin 2.1 G/DL (3.4-5.0); Bilirubin,Total 0.8 MG/DL (0.2-1.0); Calcium 7.5 MG/DL (8.5-10.1); Osmolality,Calculated 254.1 MOS/KG (273-304); Potassium 3.6 MMOL/L (3.5-5.1); Total Protein 5.3 G/DL (6.4-8.3)
[2018-09-29] MEDS ORDERED: ONDANSETRON 4 MG/2 ML VIAL IV PRN (06:25)
[2018-09-29 06:48] LABS: Band Neutrophils 1 % (0-10); Segmented Neutrophils 3 % (50-85); Total Cells Counted 100
[2018-09-29 06:52] LABS: Hypochromasia 2+; Lymphocytes 95 % (20-55); Platelet Estimate Decreased; Smudge Cells Moderate
[2018-09-29 09:52] LABS: Immunoglobulin A < 31 MG/DL (70-400); Immunoglobulin G 225 MG/DL (700-1600); Immunoglobulin M < 21 MG/DL (40-230); Total Protein 5.3 G/DL (6.4-8.3)
[2018-09-29 11:00] LABS: Immunoglobulin A (Chem) < 31 MG/DL (70-400); Immunoglobulin G (Chem) 225 MG/DL (700-1600); Immunoglobulin M (Chem) < 21 MG/DL (40-230); Total Protein (Chem) 5.3 G/DL (6.4-8.3)
[2018-09-29 11:44] LABS: Albumin (SPE) 2.8 G/DL (3.2-5.3); Albumin (SPE) Rel % 51.9 %; Alpha 1 (SPE) 0.4 G/DL (0.1-0.4); Alpha 2 (SPE) 1.1 G/DL (0.4-1.0); Alpha 2 (SPE) Rel % 20.2 %; Beta (SPE) 0.8 G/DL (0.5-1.1); Beta (SPE) Rel % 15.3 %; Gamma (SPE) 0.2 G/DL (0.7-1.7); Gamma (SPE) Rel % 4.6 %
[2018-09-29] MEDS: DOCUSATE SODIUM 100 MG CAPSULE PO SCH ×2 (12:08→20:41)
[2018-09-29] MEDS: FILGRASTIM-SNDZ 300 MCG/0.5 ML SYRINGE SUBCUT SCH (12:08)
[2018-09-29] MEDS: FLUCONAZOLE INJ 100 MG in IV BAG 1 EACH IV SCH (12:08)
[2018-09-29] MEDS ORDERED: [UNRECOGNIZED DRUG - OTHER] PO SCH (13:15)
[2018-09-29] MEDS ORDERED: CYANOCOBALAMIN 1000 MCG/1 ML VIAL IM SCH (13:30)
[2018-09-29] MEDS: ERGOCALCIFEROL 50,000 UNIT CAPSULE PO SCH (18:43)
[2018-09-29] MEDS: hydrALAZINE 25 MG TABLET PO SCH (20:41)
[2018-09-30 04:46] LABS: Hematocrit 28.6 VOL% (35.7-47.0); Hemoglobin 8.7 GM/DL (12.0-16.0); Immature Granulocytes % 1.1 %; Immature Granulocytes Absolute 0.95 #; Lymphocytes # 80.2 10*3/uL (1.4-4.0); Lymphocytes % 93.3 % (21.3-54.2); Mean Corpuscular HGB Conc 30.4 GM/DL (32-36); Mean Corpuscular Hemoglobin 29 PG (27-34); Mean Corpuscular Volume 94.1 FL (87-102); Mean Platelet Volume 10.1 FL (9.6-12.0); Monocytes # 2.1 10*3/uL (0.11-0.8); Monocytes % 2.4 % (1.7-12.7); Neutrophils # 2.6 10*3/uL (1.4-7.4); Neutrophils % 3.2 % (38.7-73.9); Platelet Count 108 T/CUMM (130-400); Red Blood Count 3.04 MC/CUMM (3.8-5.5); Red Cell Distribution Width 16.6 % (9.3-17.3)
[2018-09-30 05:01] LABS: Bilirubin,Total 1.2 MG/DL (0.2-1.0); Calcium 7.5 MG/DL (8.5-10.1); Osmolality,Calculated 259.8 MOS/KG (273-304); Potassium 3.2 MMOL/L (3.5-5.1); Total Protein 5.1 G/DL (6.4-8.3)
[2018-09-30 05:10] LABS: Atypical Lymphocytes Few; Band Neutrophils 1 % (0-10); Lymphocytes 93 % (20-55); Segmented Neutrophils 6 % (50-85); Smudge Cells Moderate; Total Cells Counted 100
[2018-09-30 05:11] LABS: Hypochromasia 1+; Microcytosis 1+; Ovalocytes Slight; Platelet Estimate Decreased
[2018-09-30] MEDS: LEVOTHYROXINE 150 MCG TABLET PO SCH (06:16)
[2018-09-30] MEDS ORDERED: IMMUNE GLOBULIN 10% 20 GM, IMMUNE GLOBULIN 10% 10 GM in PREMIX 1 EACH IV ONE (07:27)
[2018-09-30] MEDS ORDERED: ALBUTEROL/IPRATROPIUM 3 ML NEB RESP TX PRN (08:28)
[2018-09-30] MEDS: MEROPENEM 1,000 MG in SODIUM CHLORIDE 0.9% 100 ML IV SCH ×2 (09:06→20:30)
[2018-09-30] MEDS: LORATADINE 10 MG TABLET PO SCH (09:07)
[2018-09-30] MEDS: GLIMEPIRIDE 2 MG TABLET PO SCH (09:07)
[2018-09-30] MEDS: hydrALAZINE 25 MG TABLET PO SCH ×2 (09:07→20:30)
[2018-09-30] MEDS: DOCUSATE SODIUM 100 MG CAPSULE PO SCH ×2 (09:08→20:30)
[2018-09-30] MEDS: FILGRASTIM-SNDZ 300 MCG/0.5 ML SYRINGE SUBCUT SCH (09:09)
[2018-09-30] MEDS: DEXT 5% NACL 0.45% KCL 20 MEQ 20 MEQ/1,000 ML BAG IV SCH (09:24)
[2018-09-30] MEDS: VANCOMYCIN INJ 1,000 MG in SODIUM CHLORIDE 0.9% 250 ML IV SCH ×2 (17:01→21:35)
[2018-09-30] MEDS: FLUCONAZOLE INJ 100 MG in IV BAG 1 EACH IV SCH (18:43)
[2018-10-01] MEDS: DEXT 5% NACL 0.45% KCL 20 MEQ 20 MEQ/1,000 ML BAG IV SCH ×2 (04:29→13:29)
[2018-10-01] MEDS: MEROPENEM 1,000 MG in SODIUM CHLORIDE 0.9% 100 ML IV SCH ×3 (04:30→20:28)
[2018-10-01 05:02] LABS: Hemoglobin 8.9 GM/DL (12.0-16.0); Immature Granulocytes % 0.7 %; Lymphocytes # 67.8 10*3/uL (1.4-4.0); Mean Corpuscular HGB Conc 30.7 GM/DL (32-36); Mean Corpuscular Hemoglobin 29 PG (27-34); Mean Corpuscular Volume 94.2 FL (87-102); Mean Platelet Volume 10.5 FL (9.6-12.0); Monocytes # 2.3 10*3/uL (0.11-0.8); Monocytes % 3.1 % (1.7-12.7); Neutrophils # 2.3 10*3/uL (1.4-7.4); Neutrophils % 3.2 % (38.7-73.9); Platelet Count 102 T/CUMM (130-400); Red Blood Count 3.08 MC/CUMM (3.8-5.5); Red Cell Distribution Width 16.6 % (9.3-17.3)
[2018-10-01 05:29] LABS: Albumin 1.9 G/DL (3.4-5.0); Bilirubin,Total 0.7 MG/DL (0.2-1.0); Calcium 7.3 MG/DL (8.5-10.1); Osmolality,Calculated 265.4 MOS/KG (273-304); Potassium 3.5 MMOL/L (3.5-5.1); Total Protein 5.6 G/DL (6.4-8.3)
[2018-10-01 05:33] LABS: White Blood Count 72.8 T/CUMM (4-12)
[2018-10-01] MEDS: LEVOTHYROXINE 150 MCG TABLET PO SCH (06:21)
[2018-10-01 06:59] LABS: Lymphocytes 93 % (20-55); Segmented Neutrophils 6 % (50-85); Total Cells Counted 100
[2018-10-01 07:01] LABS: Platelet Estimate Decreased; Smudge Cells Many
[2018-10-01] MEDS: MAGNESIUM HYDROXIDE SUSP 30 ML UDCUP PO PRN (10:01)
[2018-10-01] MEDS: GLIMEPIRIDE 2 MG TABLET PO SCH (10:02)
[2018-10-01] MEDS: DOCUSATE SODIUM 100 MG CAPSULE PO SCH ×2 (10:02→21:22)
[2018-10-01] MEDS: LORATADINE 10 MG TABLET PO SCH (10:03)
[2018-10-01] MEDS: predniSONE 10 MG TABLET PO SCH (10:03)
[2018-10-01] MEDS: FILGRASTIM-SNDZ 300 MCG/0.5 ML SYRINGE SUBCUT SCH (10:03)
[2018-10-01] MEDS: hydrALAZINE 25 MG TABLET PO SCH ×2 (10:03→21:22)
[2018-10-01] MEDS: FLUCONAZOLE INJ 100 MG in IV BAG 1 EACH IV SCH (10:04)
[2018-10-01] MEDS: VANCOMYCIN INJ 1,000 MG in SODIUM CHLORIDE 0.9% 250 ML IV SCH ×2 (11:20→21:22)
[2018-10-02] MEDS: MEROPENEM 1,000 MG in SODIUM CHLORIDE 0.9% 100 ML IV SCH ×3 (04:40→20:50)
[2018-10-02 05:04] LABS: Hematocrit 27.1 VOL% (35.7-47.0); Hemoglobin 8.1 GM/DL (12.0-16.0); Lymphocytes # 57.1 10*3/uL (1.4-4.0); Lymphocytes % 92.5 % (21.3-54.2); Mean Corpuscular HGB Conc 29.9 GM/DL (32-36); Mean Corpuscular Hemoglobin 29 PG (27-34); Mean Corpuscular Volume 96.1 FL (87-102); Mean Platelet Volume 10.2 FL (9.6-12.0); Monocytes # 1.9 10*3/uL (0.11-0.8); Monocytes % 3.1 % (1.7-12.7); Neutrophils % 3.4 % (38.7-73.9); Platelet Count 97 T/CUMM (130-400); Red Blood Count 2.82 MC/CUMM (3.8-5.5); Red Cell Distribution Width 16.5 % (9.3-17.3)
[2018-10-02 05:10] LABS: White Blood Count 61.7 T/CUMM (4-12)
[2018-10-02 05:24] LABS: Albumin 1.9 G/DL (3.4-5.0); Bilirubin,Total 0.7 MG/DL (0.2-1.0); Calcium 7.7 MG/DL (8.5-10.1); Osmolality,Calculated 285.7 MOS/KG (273-304); Potassium 3.8 MMOL/L (3.5-5.1); Total Protein 5.5 G/DL (6.4-8.3)
[2018-10-02 06:21] LABS: Band Neutrophils 1 % (0-10); Lymphocytes 96 % (20-55); Segmented Neutrophils 2 % (50-85); Total Cells Counted 100
[2018-10-02 06:22] LABS: Anisocytosis 1+; Ovalocytes 1+; Platelet Estimate Adequate; Smudge Cells 3+; Tear Drop Cells Few
[2018-10-02] MEDS: LEVOTHYROXINE 150 MCG TABLET PO SCH (06:42)
[2018-10-02] MEDS: DEXT 5% NACL 0.45% KCL 20 MEQ 20 MEQ/1,000 ML BAG IV SCH ×2 (09:13→09:18)
[2018-10-02] MEDS: hydrALAZINE 25 MG TABLET PO SCH ×2 (09:14→20:50)
[2018-10-02] MEDS: GLIMEPIRIDE 2 MG TABLET PO SCH (09:14)
[2018-10-02] MEDS: DOCUSATE SODIUM 100 MG CAPSULE PO SCH ×2 (09:14→20:50)
[2018-10-02] MEDS: FILGRASTIM-SNDZ 300 MCG/0.5 ML SYRINGE SUBCUT SCH (09:15)
[2018-10-02] MEDS: LORATADINE 10 MG TABLET PO SCH (09:15)
[2018-10-02] MEDS: FLUCONAZOLE INJ 100 MG in IV BAG 1 EACH IV SCH (09:15)
[2018-10-02] MEDS ORDERED: SODIUM CHLORIDE 0.9% 1,000 ML IV PRN (10:30)
[2018-10-02] MEDS: VANCOMYCIN INJ 1,000 MG in SODIUM CHLORIDE 0.9% 250 ML IV SCH ×2 (11:53→22:13)
[2018-10-02] MEDS: MAGNESIUM HYDROXIDE SUSP 30 ML UDCUP PO PRN (20:56)
[2018-10-02] MEDS: ACETAMINOPHEN 325 MG TABLET PO PRN (23:57)
[2018-10-03] MEDS: DEXT 5% NACL 0.45% KCL 20 MEQ 20 MEQ/1,000 ML BAG IV SCH ×3 (03:37→20:14)
[2018-10-03] MEDS: MEROPENEM 1,000 MG in SODIUM CHLORIDE 0.9% 100 ML IV SCH ×3 (03:38→20:15)
[2018-10-03 05:03] LABS: Eosinophils # 0.1 10*3/uL (0.0-0.87); Eosinophils % 0.1 % (0.00-10.9); Hematocrit 39.4 VOL% (35.7-47.0); Immature Granulocytes % 0.6 %; Immature Granulocytes Absolute 0.54 #; Lymphocytes # 79.5 10*3/uL (1.4-4.0); Mean Corpuscular HGB Conc 30.5 GM/DL (32-36); Mean Corpuscular Hemoglobin 29 PG (27-34); Mean Corpuscular Volume 94.3 FL (87-102); Mean Platelet Volume 10.1 FL (9.6-12.0); Monocytes # 4.1 10*3/uL (0.11-0.8); Monocytes % 4.8 % (1.7-12.7); Neutrophils # 2.2 10*3/uL (1.4-7.4); Neutrophils % 2.5 % (38.7-73.9); Platelet Count 107 T/CUMM (130-400); Red Blood Count 4.18 MC/CUMM (3.8-5.5); Red Cell Distribution Width 16.9 % (9.3-17.3)
[2018-10-03 05:09] LABS: White Blood Count 86.5 T/CUMM (4-12)
[2018-10-03 05:35] LABS: Albumin 2.1 G/DL (3.4-5.0); Bilirubin,Total 0.7 MG/DL (0.2-1.0); Calcium 8.1 MG/DL (8.5-10.1); Osmolality,Calculated 275.5 MOS/KG (273-304); Potassium 3.8 MMOL/L (3.5-5.1); Total Protein 5.8 G/DL (6.4-8.3)
[2018-10-03 05:58] LABS: Band Neutrophils 3 % (0-10); Lymphocytes 94 % (20-55); Platelet Estimate Decreased; Segmented Neutrophils 2 % (50-85); Total Cells Counted 100
[2018-10-03 05:59] LABS: Anisocytosis 1+; Atypical Lymphocytes Moderate; Smudge Cells 3+; Tear Drop Cells Few
[2018-10-03] MEDS: LEVOTHYROXINE 150 MCG TABLET PO SCH (06:06)
[2018-10-03] MEDS: hydrALAZINE 25 MG TABLET PO SCH ×2 (09:35→20:15)
[2018-10-03] MEDS: LORATADINE 10 MG TABLET PO SCH (09:35)
[2018-10-03] MEDS: predniSONE 10 MG TABLET PO SCH (09:35)
[2018-10-03] MEDS: DOCUSATE SODIUM 100 MG CAPSULE PO SCH ×2 (09:35→20:15)
[2018-10-03] MEDS: GLIMEPIRIDE 2 MG TABLET PO SCH (09:35)
[2018-10-03] MEDS: FILGRASTIM-SNDZ 300 MCG/0.5 ML SYRINGE SUBCUT SCH (09:36)
[2018-10-03] MEDS: FLUCONAZOLE INJ 100 MG in IV BAG 1 EACH IV SCH (09:36)
[2018-10-03] MEDS: INSULIN REGULAR 100 UNIT/ML SUBCUT SCH ×2 (10:42)
[2018-10-03] MEDS: VANCOMYCIN INJ 1,000 MG in SODIUM CHLORIDE 0.9% 250 ML IV SCH ×2 (11:43→20:50)
[2018-10-04] MEDS: INSULIN REGULAR 100 UNIT/ML SUBCUT SCH ×3 (00:35→20:49)
[2018-10-04 04:55] LABS: Hematocrit 37.6 VOL% (35.7-47.0); Hemoglobin 11.5 GM/DL (12.0-16.0); Immature Granulocytes % 0.6 %; Immature Granulocytes Absolute 0.58 #; Lymphocytes % 89.1 % (21.3-54.2); Mean Corpuscular HGB Conc 30.6 GM/DL (32-36); Mean Corpuscular Hemoglobin 29 PG (27-34); Mean Corpuscular Volume 94.2 FL (87-102); Mean Platelet Volume 10.5 FL (9.6-12.0); Monocytes # 7.2 10*3/uL (0.11-0.8); NRBC # 0.02 10*3/uL; Neutrophils # 3.4 10*3/uL (1.4-7.4); Neutrophils % 3.3 % (38.7-73.9); Platelet Count 84 T/CUMM (130-400); Red Blood Count 3.99 MC/CUMM (3.8-5.5); Red Cell Distribution Width 16.8 % (9.3-17.3)
[2018-10-04 05:00] LABS: White Blood Count 102.2 T/CUMM (4-12)
[2018-10-04] MEDS: MEROPENEM 1,000 MG in SODIUM CHLORIDE 0.9% 100 ML IV SCH (05:14)
[2018-10-04 05:23] LABS: Atypical Lymphocytes Few; Hypochromasia 1+; Lymphocytes 97 % (20-55); Platelet Estimate Decreased; Segmented Neutrophils 3 % (50-85); Smudge Cells Moderate; Total Cells Counted 100
[2018-10-04 05:29] LABS: Albumin 2.2 G/DL (3.4-5.0); Bilirubin,Total 1.3 MG/DL (0.2-1.0); Calcium 8.3 MG/DL (8.5-10.1); Osmolality,Calculated 282.1 MOS/KG (273-304); Potassium 3.7 MMOL/L (3.5-5.1); Total Protein 5.9 G/DL (6.4-8.3)
[2018-10-04] MEDS: LEVOTHYROXINE 150 MCG TABLET PO SCH (07:14)
[2018-10-04] MEDS: FLUCONAZOLE 100 MG TABLET PO SCH (09:55)
[2018-10-04] MEDS: GLIMEPIRIDE 2 MG TABLET PO SCH (09:55)
[2018-10-04] MEDS: FILGRASTIM-SNDZ 300 MCG/0.5 ML SYRINGE SUBCUT SCH (09:56)
[2018-10-04] MEDS: hydrALAZINE 25 MG TABLET PO SCH ×2 (09:56→20:50)
[2018-10-04] MEDS: DOCUSATE SODIUM 100 MG CAPSULE PO SCH ×2 (09:56→20:50)
[2018-10-04] MEDS: LORATADINE 10 MG TABLET PO SCH (09:56)
[2018-10-04] MEDS: VANCOMYCIN INJ 1,000 MG in SODIUM CHLORIDE 0.9% 250 ML IV SCH ×2 (09:57→20:49)
[2018-10-04] MEDS: DEXT 5% NACL 0.45% KCL 20 MEQ 20 MEQ/1,000 ML BAG IV SCH ×2 (12:32→13:36)
[2018-10-05] MEDS: DEXT 5% NACL 0.45% KCL 20 MEQ 20 MEQ/1,000 ML BAG IV SCH ×3 (04:30→20:43)
[2018-10-05 05:00] LABS: Albumin 2.3 G/DL (3.4-5.0); Bilirubin,Total 0.7 MG/DL (0.2-1.0); Osmolality,Calculated 282.3 MOS/KG (273-304); Potassium 4.2 MMOL/L (3.5-5.1); Total Protein 5.9 G/DL (6.4-8.3)
[2018-10-05 05:01] LABS: Basophils # 0.1 10*3/uL (0.0-0.2); Basophils % 0.1 % (0.0-0.8); Hematocrit 39.5 VOL% (35.7-47.0); Hemoglobin 11.9 GM/DL (12.0-16.0); Immature Granulocytes % 0.6 %; Immature Granulocytes Absolute 0.67 #; Lymphocytes # 100.9 10*3/uL (1.4-4.0); Lymphocytes % 89.6 % (21.3-54.2); Mean Corpuscular HGB Conc 30.1 GM/DL (32-36); Mean Corpuscular Hemoglobin 29 PG (27-34); Mean Platelet Volume 9.9 FL (9.6-12.0); Monocytes # 6.6 10*3/uL (0.11-0.8); Monocytes % 5.8 % (1.7-12.7); Neutrophils # 4.4 10*3/uL (1.4-7.4); Neutrophils % 3.9 % (38.7-73.9); Platelet Count 73 T/CUMM (130-400); Red Blood Count 4.16 MC/CUMM (3.8-5.5)
[2018-10-05 05:04] LABS: White Blood Count 112.6 T/CUMM (4-12)
[2018-10-05 05:08] LABS: Atypical Lymphocytes Few; Band Neutrophils 1 % (0-10); Hypochromasia 1+; Lymphocytes 91 % (20-55); Platelet Estimate Decreased; Segmented Neutrophils 6 % (50-85); Smudge Cells Moderate; Total Cells Counted 100
[2018-10-05] MEDS: LEVOTHYROXINE 150 MCG TABLET PO SCH (07:02)
[2018-10-05] MEDS: ACETAMINOPHEN 325 MG TABLET PO PRN (08:00)
[2018-10-05] MEDS: FLUCONAZOLE 100 MG TABLET PO SCH (08:00)
[2018-10-05] MEDS: GLIMEPIRIDE 2 MG TABLET PO SCH (08:00)
[2018-10-05] MEDS: LORATADINE 10 MG TABLET PO SCH (08:01)
[2018-10-05] MEDS: predniSONE 10 MG TABLET PO SCH (08:01)
[2018-10-05] MEDS: DOCUSATE SODIUM 100 MG CAPSULE PO SCH ×2 (08:01→21:13)
[2018-10-05] MEDS: hydrALAZINE 25 MG TABLET PO SCH ×2 (08:01→21:13)
[2018-10-05] MEDS: FILGRASTIM-SNDZ 300 MCG/0.5 ML SYRINGE SUBCUT SCH (08:02)
[2018-10-05] MEDS: INSULIN REGULAR 100 UNIT/ML SUBCUT SCH ×2 (08:05→21:14)
[2018-10-05] MEDS: VANCOMYCIN INJ 1,000 MG in SODIUM CHLORIDE 0.9% 250 ML IV SCH (09:17)
[2018-10-05] MEDS: LINEZOLID INJ 600 MG in PREMIX 1 EACH IV SCH (15:32)
[2018-10-06] MEDS: LINEZOLID INJ 600 MG in PREMIX 1 EACH IV SCH ×2 (03:35→16:05)
[2018-10-06] MEDS: LEVOTHYROXINE 150 MCG TABLET PO SCH (06:02)
[2018-10-06] MEDS: FLUCONAZOLE 100 MG TABLET PO SCH (10:22)
[2018-10-06] MEDS: GLIMEPIRIDE 2 MG TABLET PO SCH (10:22)
[2018-10-06] MEDS: LORATADINE 10 MG TABLET PO SCH (10:22)
[2018-10-06] MEDS: hydrALAZINE 25 MG TABLET PO SCH ×2 (10:22→20:44)
[2018-10-06] MEDS: DOCUSATE SODIUM 100 MG CAPSULE PO SCH ×2 (10:22→20:44)
[2018-10-06] MEDS: FILGRASTIM-SNDZ 300 MCG/0.5 ML SYRINGE SUBCUT SCH (10:23)
[2018-10-06] MEDS: DEXT 5% NACL 0.45% KCL 20 MEQ 20 MEQ/1,000 ML BAG IV SCH (10:25)
[2018-10-06] MEDS: INSULIN REGULAR 100 UNIT/ML SUBCUT SCH ×2 (10:30→22:26)
[2018-10-06] MEDS: ERGOCALCIFEROL 50,000 UNIT CAPSULE PO SCH (16:03)
[2018-10-07] MEDS: DEXT 5% NACL 0.45% KCL 20 MEQ 20 MEQ/1,000 ML BAG IV SCH (00:11)
[2018-10-07] MEDS: LINEZOLID INJ 600 MG in PREMIX 1 EACH IV SCH ×2 (04:07→15:20)
[2018-10-07 05:39] LABS: Osmolality,Calculated 285.3 MOS/KG (273-304); Potassium 3.9 MMOL/L (3.5-5.1)
[2018-10-07 05:52] LABS: Basophils # 0.1 10*3/uL (0.0-0.2); Basophils % 0.1 % (0.0-0.8); Hematocrit 36.4 VOL% (35.7-47.0); Hemoglobin 10.8 GM/DL (12.0-16.0); Immature Granulocytes % 0.6 %; Lymphocytes # 93.2 10*3/uL (1.4-4.0); Mean Corpuscular HGB Conc 29.7 GM/DL (32-36); Mean Corpuscular Hemoglobin 28 PG (27-34); Mean Platelet Volume 10.6 FL (9.6-12.0); Monocytes # 6.1 10*3/uL (0.11-0.8); Monocytes % 5.9 % (1.7-12.7); Neutrophils # 4.6 10*3/uL (1.4-7.4); Neutrophils % 4.4 % (38.7-73.9); Platelet Count 54 T/CUMM (130-400); Red Blood Count 3.83 MC/CUMM (3.8-5.5); Red Cell Distribution Width 16.6 % (9.3-17.3)
[2018-10-07 06:00] LABS: White Blood Count 104.7 T/CUMM (4-12)
[2018-10-07 06:08] LABS: Atypical Lymphocytes Few; Hypochromasia 1+; Lymphocytes 90 % (20-55); Microcytosis 1+; Ovalocytes Slight; Segmented Neutrophils 9 % (50-85); Smudge Cells Moderate; Total Cells Counted 100
[2018-10-07 06:09] LABS: Platelet Estimate Decreased
[2018-10-07] MEDS: LEVOTHYROXINE 150 MCG TABLET PO SCH (08:22)
[2018-10-07] MEDS: GLIMEPIRIDE 2 MG TABLET PO SCH (08:22)
[2018-10-07] MEDS: LORATADINE 10 MG TABLET PO SCH (08:23)
[2018-10-07] MEDS: predniSONE 10 MG TABLET PO SCH (08:23)
[2018-10-07] MEDS: DOCUSATE SODIUM 100 MG CAPSULE PO SCH (08:23)
[2018-10-07] MEDS: hydrALAZINE 25 MG TABLET PO SCH (08:23)
[2018-10-07] MEDS: FLUCONAZOLE 100 MG TABLET PO SCH (08:23)
[2018-10-07] MEDS: FILGRASTIM-SNDZ 300 MCG/0.5 ML SYRINGE SUBCUT SCH (08:23)
[2018-10-07] MEDS: INSULIN REGULAR 100 UNIT/ML SUBCUT SCH (10:35)
[2018-10-07] MEDS ORDERED: HEPARIN LOCK FLUSH 500 UNIT/5 ML SYRINGE IV ONE (15:09)
[2018-10-07 16:41] VITALS: BP 148/68
== END 2018-10-07 16:31 | disposition home health service (06) | DRG 872 ==
LOC: N.EDINP 04:47 → N.ED 04:47 → N.4E 08:48
PROVIDERS: ADMIT Internal Medicine; ATTEND Internal Medicine

== ENCOUNTER 2019-03-28 11:02 | Inpatient (IN) ==
[2019-03-28] MEDS ORDERED: ONDANSETRON 4 MG/2 ML VIAL IV PRN (11:18)
[2019-03-28] MEDS ORDERED: ACETAMINOPHEN 325 MG TABLET PO PRN (11:18)
[2019-03-28] MEDS ORDERED: ALBUTEROL/IPRATROPIUM 3 ML NEB RESP TX PRN (11:25)
[2019-03-28] MEDS ORDERED: GLUCAGON 1 MG VIAL IM PRN (11:26)
[2019-03-28] MEDS ORDERED: DEXTROSE 10% 250 ML BAG IV PRN (11:26)
[2019-03-28] MEDS: methylPREDNISolone SOD SUC 40 MG/1 ML VIAL IV SCH ×2 (14:17→20:11)
[2019-03-28] MEDS: SODIUM CHLORIDE 0.9% 1,000 ML IV SCH (14:18)
[2019-03-28] MEDS: PIPERACILLIN/TAZOBACTAM 3,375 MG in SODIUM CHLORIDE 0.9% 100 ML IV SCH ×2 (14:19→20:13)
[2019-03-28] MEDS: ALBUTEROL/IPRATROPIUM 3 ML NEB RESP TX SCH ×2 (15:10→20:30)
[2019-03-28] MEDS: INSULIN LISPRO 100 UNIT/ML SUBCUT SCH ×3 (15:32→21:07)
[2019-03-28] MEDS: DOCUSATE SODIUM 100 MG CAPSULE PO SCH (20:10)
[2019-03-29] MEDS: methylPREDNISolone SOD SUC 40 MG/1 ML VIAL IV SCH ×3 (04:38→21:24)
[2019-03-29] MEDS: PIPERACILLIN/TAZOBACTAM 3,375 MG in SODIUM CHLORIDE 0.9% 100 ML IV SCH ×3 (04:40→21:31)
[2019-03-29 05:21] LABS: Hematocrit 29.8 VOL% (35.7-47.0); Hemoglobin 8.9 GM/DL (12.0-16.0); Immature Granulocytes % 0.1 %; Immature Granulocytes Absolute 0.21 #; Lymphocytes # 152.4 10*3/uL (1.4-4.0); Lymphocytes % 89.5 % (21.3-54.2); Mean Corpuscular HGB Conc 29.9 GM/DL (32-36); Mean Corpuscular Volume 105.3 FL (87-102); Mean Platelet Volume 10.5 FL (9.6-12.0); Monocytes % 9.3 % (1.7-12.7); Neutrophils % 1.1 % (38.7-73.9); Platelet Count 58 T/CUMM (130-400); Red Blood Count 2.83 MC/CUMM (3.8-5.5); Red Cell Distribution Width 17.2 % (9.3-17.3)
[2019-03-29 05:27] LABS: White Blood Count 170.2 T/CUMM (4-12)
[2019-03-29 05:48] LABS: Atypical Lymphocytes Few; Hypochromasia 1+; Lymphocytes 93 % (20-55); Platelet Estimate Decreased; Segmented Neutrophils 6 % (50-85); Total Cells Counted 100
[2019-03-29 05:49] LABS: Smudge Cells Moderate
[2019-03-29 05:55] LABS: Albumin 2.6 G/DL (3.4-5.0); Bilirubin,Total 1.4 MG/DL (0.2-1.0); Calcium 7.9 MG/DL (8.5-10.1); Osmolality,Calculated 295.4 MOS/KG (273-304); Total Protein 5.4 G/DL (6.4-8.3)
[2019-03-29] MEDS ORDERED: [UNRECOGNIZED DRUG - OTHER] PO SCH (08:00)
[2019-03-29] MEDS: ALBUTEROL/IPRATROPIUM 3 ML NEB RESP TX SCH ×4 (08:20→19:37)
[2019-03-29] MEDS: GLIMEPIRIDE 2 MG TABLET PO SCH (09:54)
[2019-03-29] MEDS: hydrALAZINE 25 MG TABLET PO SCH ×2 (09:54→21:25)
[2019-03-29] MEDS: DOCUSATE SODIUM 100 MG CAPSULE PO SCH ×2 (09:55→21:25)
[2019-03-29] MEDS: PANTOPRAZOLE 40 MG TABLET PO SCH (09:56)
[2019-03-29] MEDS: INSULIN LISPRO 100 UNIT/ML SUBCUT SCH ×4 (12:27→21:39)
[2019-03-29] MEDS: SODIUM CHLORIDE 0.9% 1,000 ML IV SCH (16:34)
[2019-03-30] MEDS: ALBUTEROL/IPRATROPIUM 3 ML NEB RESP TX SCH ×4 (00:25→20:10)
[2019-03-30] MEDS: methylPREDNISolone SOD SUC 40 MG/1 ML VIAL IV SCH ×3 (03:13→20:46)
[2019-03-30] MEDS: PIPERACILLIN/TAZOBACTAM 3,375 MG in SODIUM CHLORIDE 0.9% 100 ML IV SCH ×3 (03:16→20:47)
[2019-03-30 06:04] LABS: Hematocrit 31.2 VOL% (35.7-47.0); Hemoglobin 9.3 GM/DL (12.0-16.0); Immature Granulocytes % 0.1 %; Lymphocytes % 89.4 % (21.3-54.2); Mean Corpuscular HGB Conc 29.8 GM/DL (32-36); Mean Corpuscular Volume 106.8 FL (87-102); Mean Platelet Volume 11.2 FL (9.6-12.0); Monocytes % 9.2 % (1.7-12.7); Neutrophils % 1.3 % (38.7-73.9); Platelet Count 50 T/CUMM (130-400); Red Blood Count 2.92 MC/CUMM (3.8-5.5); Red Cell Distribution Width 17.2 % (9.3-17.3)
[2019-03-30 06:10] LABS: White Blood Count 138.7 T/CUMM (4-12)
[2019-03-30 06:11] LABS: Albumin 2.7 G/DL (3.4-5.0); Bilirubin,Total 0.4 MG/DL (0.2-1.0); Calcium 8.2 MG/DL (8.5-10.1); Osmolality,Calculated 301.8 MOS/KG (273-304); Total Protein 5.3 G/DL (6.4-8.3)
[2019-03-30 06:30] LABS: Atypical Lymphocytes Few; Hypochromasia 1+; Lymphocytes 95 % (20-55); Platelet Estimate Decreased; Segmented Neutrophils 5 % (50-85); Smudge Cells Few; Total Cells Counted 100
[2019-03-30] MEDS ORDERED: MIDAZOLAM 2 MG/2 ML VIAL ONE (06:49)
[2019-03-30] MEDS ORDERED: PROMETHAZINE 25 MG/1 ML VIAL IM ONE (07:00)
[2019-03-30] MEDS ORDERED: MEPERIDINE 50 MG/1 ML VIAL IM ONE (07:00)
[2019-03-30] MEDS: LEVOTHYROXINE 125 MCG TABLET PO SCH ×2 (07:05→10:08)
[2019-03-30] MEDS ORDERED: LIDOCAINE 1% 20 ML VIAL MISC INJ ONE (07:30)
[2019-03-30] MEDS ORDERED: LIDOCAINE 2% 20 ML VIAL RESP TX ONE (07:30)
[2019-03-30] MEDS ORDERED: MIDAZOLAM 2 MG/2 ML VIAL IV ONE (07:30)
[2019-03-30] MEDS ORDERED: LIDOCAINE 2% VISCOUS 100 ML BOTTLE SWISH/SPIT ONE (07:30)
[2019-03-30] MEDS: INSULIN LISPRO 100 UNIT/ML SUBCUT SCH ×4 (10:06→20:46)
[2019-03-30] MEDS: ERGOCALCIFEROL 50,000 UNIT CAPSULE PO SCH (10:08)
[2019-03-30] MEDS: hydrALAZINE 25 MG TABLET PO SCH ×2 (10:08→20:47)
[2019-03-30] MEDS: GLIMEPIRIDE 2 MG TABLET PO SCH (10:08)
[2019-03-30] MEDS: PANTOPRAZOLE 40 MG TABLET PO SCH (10:08)
[2019-03-30] MEDS: DOCUSATE SODIUM 100 MG CAPSULE PO SCH ×2 (10:08→20:47)
[2019-03-30] MEDS: SODIUM CHLORIDE 0.9% 1,000 ML IV SCH (14:00)
[2019-03-31] MEDS: PIPERACILLIN/TAZOBACTAM 3,375 MG in SODIUM CHLORIDE 0.9% 100 ML IV SCH ×3 (04:45→20:58)
[2019-03-31] MEDS: methylPREDNISolone SOD SUC 40 MG/1 ML VIAL IV SCH ×2 (04:45→17:38)
[2019-03-31 05:53] LABS: Basophils # 0.2 10*3/uL (0.0-0.2); Basophils % 0.1 % (0.0-0.8); Hematocrit 29.7 VOL% (35.7-47.0); Hemoglobin 8.5 GM/DL (12.0-16.0); Immature Granulocytes % 0.1 %; Immature Granulocytes Absolute 0.26 #; Lymphocytes # 185.5 10*3/uL (1.4-4.0); Lymphocytes % 90.6 % (21.3-54.2); Mean Corpuscular HGB Conc 28.6 GM/DL (32-36); Mean Corpuscular Volume 109.2 FL (87-102); Mean Platelet Volume 10.3 FL (9.6-12.0); Monocytes % 8.2 % (1.7-12.7); Red Blood Count 2.72 MC/CUMM (3.8-5.5); Red Cell Distribution Width 18.8 % (9.3-17.3)
[2019-03-31 05:54] LABS: Platelet Count 55 T/CUMM (130-400)
[2019-03-31 05:56] LABS: White Blood Count 204.7 T/CUMM (4-12)
[2019-03-31 06:00] LABS: Atypical Lymphocytes Few; Hypochromasia 1+; Lymphocytes 95 % (20-55); Platelet Estimate Decreased; Segmented Neutrophils 4 % (50-85); Smudge Cells Moderate; Total Cells Counted 100
[2019-03-31] MEDS: LEVOTHYROXINE 125 MCG TABLET PO SCH (07:10)
[2019-03-31] MEDS: ALBUTEROL/IPRATROPIUM 3 ML NEB RESP TX SCH ×4 (07:27→19:25)
[2019-03-31] MEDS: SODIUM CHLORIDE 0.9% 1,000 ML IV SCH ×3 (08:06→22:50)
[2019-03-31 08:12] LABS: Alanine Aminotransferase 27 U/L (13-56); Albumin 2.8 G/DL (3.4-5.0); Alkaline Phosphatase 136 U/L (45-117); Aspartate Amino Transferase 15 U/L (0-37); Bilirubin,Total < 0.39 MG/DL (0.2-1.0); Blood Urea Nitrogen 35 MG/DL (7-18); Glucose 285 MG/DL (74-106); Osmolality,Calculated 305.7 MOS/KG (273-304); Total Protein 5.6 G/DL (6.4-8.3)
[2019-03-31] MEDS ORDERED: methylPREDNISolone SOD SUC 40 MG/1 ML VIAL IV SCH (08:30)
[2019-03-31] MEDS: INSULIN LISPRO 100 UNIT/ML SUBCUT SCH ×4 (08:52→22:49)
[2019-03-31] MEDS: PANTOPRAZOLE 40 MG TABLET PO SCH (08:52)
[2019-03-31] MEDS: DOCUSATE SODIUM 100 MG CAPSULE PO SCH ×2 (08:52→20:58)
[2019-03-31] MEDS: hydrALAZINE 25 MG TABLET PO SCH ×2 (08:52→20:58)
[2019-03-31] MEDS: GLIMEPIRIDE 2 MG TABLET PO SCH (08:52)
[2019-03-31 09:32] LABS: Total Protein (Chem) 5.5 G/DL (6.4-8.3)
[2019-03-31 12:00] LABS: Albumin (SPE) 3.7 G/DL (3.2-5.3); Albumin (SPE) Rel % 67.1 %; Alpha 1 (SPE) 0.2 G/DL (0.1-0.4); Alpha 1 (SPE) Rel % 4.1 %; Alpha 2 (SPE) 0.7 G/DL (0.4-1.0); Alpha 2 (SPE) Rel % 13.5 %; Beta (SPE) 0.6 G/DL (0.5-1.1); Beta (SPE) Rel % 10.5 %; Gamma (SPE) 0.3 G/DL (0.7-1.7); Gamma (SPE) Rel % 4.8 %
[2019-04-01] MEDS: ALBUTEROL/IPRATROPIUM 3 ML NEB RESP TX SCH ×4 (00:27→19:46)
[2019-04-01] MEDS: SODIUM CHLORIDE 0.9% 1,000 ML IV SCH (01:49)
[2019-04-01] MEDS: PIPERACILLIN/TAZOBACTAM 3,375 MG in SODIUM CHLORIDE 0.9% 100 ML IV SCH ×3 (05:03→23:16)
[2019-04-01 06:22] LABS: Albumin 2.6 G/DL (3.4-5.0); Bilirubin,Total 0.4 MG/DL (0.2-1.0); Calcium 7.5 MG/DL (8.5-10.1); Osmolality,Calculated 300.7 MOS/KG (273-304); Total Protein 5.1 G/DL (6.4-8.3)
[2019-04-01] MEDS: LEVOTHYROXINE 125 MCG TABLET PO SCH (06:30)
[2019-04-01] MEDS: methylPREDNISolone SOD SUC 40 MG/1 ML VIAL IV SCH ×2 (06:30→16:30)
[2019-04-01 06:38] LABS: Basophils # 0.2 10*3/uL (0.0-0.2); Basophils % 0.1 % (0.0-0.8); Hematocrit 27.9 VOL% (35.7-47.0); Hemoglobin 7.9 GM/DL (12.0-16.0); Immature Granulocytes % 0.2 %; Immature Granulocytes Absolute 0.26 #; Lymphocytes % 89.3 % (21.3-54.2); Mean Corpuscular HGB Conc 28.3 GM/DL (32-36); Mean Corpuscular Volume 111.6 FL (87-102); Mean Platelet Volume 10.5 FL (9.6-12.0); Monocytes % 9.5 % (1.7-12.7); NRBC # 0.02 10*3/uL; Neutrophils % 0.9 % (38.7-73.9); Platelet Count 52 T/CUMM (130-400); Red Cell Distribution Width 18.1 % (9.3-17.3)
[2019-04-01 06:41] LABS: White Blood Count 153.4 T/CUMM (4-12)
[2019-04-01 06:43] LABS: Atypical Lymphocytes Few; Hypochromasia 1+; Lymphocytes 96 % (20-55); Ovalocytes Slight; Platelet Estimate Decreased; Segmented Neutrophils 3 % (50-85); Smudge Cells Moderate; Total Cells Counted 100
[2019-04-01] MEDS ORDERED: SODIUM CHLORIDE 0.9% 1,000 ML IV PRN (07:40)
[2019-04-01] MEDS: hydrALAZINE 25 MG TABLET PO SCH ×2 (10:02→20:39)
[2019-04-01] MEDS: GLIMEPIRIDE 2 MG TABLET PO SCH (10:03)
[2019-04-01] MEDS: DOCUSATE SODIUM 100 MG CAPSULE PO SCH ×2 (10:03→20:39)
[2019-04-01] MEDS: PANTOPRAZOLE 40 MG TABLET PO SCH (10:04)
[2019-04-01] MEDS: INSULIN LISPRO 100 UNIT/ML SUBCUT SCH ×4 (10:06→21:14)
[2019-04-02] MEDS: ALBUTEROL/IPRATROPIUM 3 ML NEB RESP TX SCH ×4 (01:19→19:45)
[2019-04-02] MEDS: methylPREDNISolone SOD SUC 40 MG/1 ML VIAL IV SCH (04:00)
[2019-04-02 04:56] LABS: Calcium 7.6 MG/DL (8.5-10.1)
[2019-04-02 05:45] LABS: Hemoglobin 10.1 GM/DL (12.0-16.0); Immature Granulocytes % 0.1 %; Immature Granulocytes Absolute 0.24 #; Lymphocytes % 91.6 % (21.3-54.2); Mean Corpuscular HGB Conc 29.7 GM/DL (32-36); Mean Corpuscular Volume 104.3 FL (87-102); Mean Platelet Volume 10.9 FL (9.6-12.0); Monocytes % 7.5 % (1.7-12.7); NRBC # 0.05 10*3/uL; Neutrophils % 0.8 % (38.7-73.9); Platelet Count 49 T/CUMM (130-400); Red Blood Count 3.26 MC/CUMM (3.8-5.5); Red Cell Distribution Width 18.6 % (9.3-17.3)
[2019-04-02] MEDS: LEVOTHYROXINE 125 MCG TABLET PO SCH (06:35)
[2019-04-02 07:14] LABS: Lymphocytes 96 % (20-55); Ovalocytes Few; Platelet Estimate Decreased; Polychromasia Slight; Smudge Cells Moderate; Total Cells Counted 100
[2019-04-02] MEDS: INSULIN LISPRO 100 UNIT/ML SUBCUT SCH ×4 (08:54→20:27)
[2019-04-02] MEDS: GLIMEPIRIDE 2 MG TABLET PO SCH (08:56)
[2019-04-02] MEDS: PANTOPRAZOLE 40 MG TABLET PO SCH (08:57)
[2019-04-02] MEDS: hydrALAZINE 25 MG TABLET PO SCH ×2 (08:57→20:25)
[2019-04-02] MEDS: DOCUSATE SODIUM 100 MG CAPSULE PO SCH ×2 (08:57→20:25)
[2019-04-02] MEDS: PIPERACILLIN/TAZOBACTAM 3,375 MG in SODIUM CHLORIDE 0.9% 100 ML IV SCH (09:02)
[2019-04-03] MEDS: ALBUTEROL/IPRATROPIUM 3 ML NEB RESP TX SCH ×4 (00:20→19:43)
[2019-04-03 04:52] LABS: Basophils # 0.1 10*3/uL (0.0-0.2); Eosinophils # 0.1 10*3/uL (0.0-0.87); Immature Granulocytes % 0.1 %; Immature Granulocytes Absolute 0.23 #; Lymphocytes # 192.6 10*3/uL (1.4-4.0); Lymphocytes % 88.8 % (21.3-54.2); Mean Corpuscular Volume 104.6 FL (87-102); Mean Platelet Volume 10.8 FL (9.6-12.0); Monocytes % 9.5 % (1.7-12.7); NRBC # 0.13 10*3/uL; Neutrophils % 1.6 % (38.7-73.9); Platelet Count 70 T/CUMM (130-400); Red Blood Count 3.73 MC/CUMM (3.8-5.5); Red Cell Distribution Width 19.9 % (9.3-17.3)
[2019-04-03 05:06] LABS: Calcium 7.5 MG/DL (8.5-10.1); Osmolality,Calculated 276.5 MOS/KG (273-304)
[2019-04-03 05:15] LABS: Hemoglobin 11.4 GM/DL (12.0-16.0)
[2019-04-03 05:16] LABS: White Blood Count 216.7 T/CUMM (4-12)
[2019-04-03 05:36] LABS: Anisocytosis 1+; Band Neutrophils 1 % (0-10); Lymphocytes 97 % (20-55); Macrocytosis 1+; Polychromasia 1+; Segmented Neutrophils 1 % (50-85); Smudge Cells 3+; Total Cells Counted 100
[2019-04-03 05:37] LABS: Platelet Estimate Decreased
[2019-04-03] MEDS: LEVOTHYROXINE 125 MCG TABLET PO SCH (06:28)
[2019-04-03] MEDS: INSULIN LISPRO 100 UNIT/ML SUBCUT SCH ×4 (07:53→21:24)
[2019-04-03] MEDS: hydrALAZINE 25 MG TABLET PO SCH ×2 (09:12→21:22)
[2019-04-03] MEDS: methylPREDNISolone SOD SUC 40 MG/1 ML VIAL IV SCH (09:12)
[2019-04-03] MEDS: GLIMEPIRIDE 2 MG TABLET PO SCH (09:13)
[2019-04-03] MEDS: DOCUSATE SODIUM 100 MG CAPSULE PO SCH ×2 (09:13→21:24)
[2019-04-03] MEDS: PANTOPRAZOLE 40 MG TABLET PO SCH (09:17)
[2019-04-04] MEDS: ALBUTEROL/IPRATROPIUM 3 ML NEB RESP TX SCH ×4 (02:17→19:47)
[2019-04-04 04:54] LABS: Basophils # 0.2 10*3/uL (0.0-0.2); Basophils % 0.1 % (0.0-0.8); Eosinophils # 0.1 10*3/uL (0.0-0.87); Hematocrit 35.4 VOL% (35.7-47.0); Hemoglobin 10.9 GM/DL (12.0-16.0); Immature Granulocytes % 0.1 %; Lymphocytes # 141.8 10*3/uL (1.4-4.0); Lymphocytes % 88.4 % (21.3-54.2); Mean Corpuscular HGB Conc 30.8 GM/DL (32-36); Mean Corpuscular Volume 102.9 FL (87-102); Mean Platelet Volume 10.4 FL (9.6-12.0); Monocytes % 10.3 % (1.7-12.7); NRBC # 0.04 10*3/uL; Neutrophils % 1.1 % (38.7-73.9); Platelet Count 57 T/CUMM (130-400); Red Blood Count 3.44 MC/CUMM (3.8-5.5); Red Cell Distribution Width 17.9 % (9.3-17.3)
[2019-04-04 04:57] LABS: White Blood Count 160.5 T/CUMM (4-12)
[2019-04-04 05:06] LABS: Calcium 7.9 MG/DL (8.5-10.1)
[2019-04-04 05:25] LABS: Atypical Lymphocytes Few; Hypochromasia 1+; Lymphocytes 91 % (20-55); Platelet Estimate Decreased; Segmented Neutrophils 7 % (50-85); Smudge Cells Moderate; Total Cells Counted 100
[2019-04-04] MEDS: LEVOTHYROXINE 125 MCG TABLET PO SCH (06:24)
[2019-04-04] MEDS: GLIMEPIRIDE 2 MG TABLET PO SCH (09:12)
[2019-04-04] MEDS: INSULIN LISPRO 100 UNIT/ML SUBCUT SCH ×4 (09:12→21:28)
[2019-04-04] MEDS: PANTOPRAZOLE 40 MG TABLET PO SCH (09:13)
[2019-04-04] MEDS: hydrALAZINE 25 MG TABLET PO SCH ×2 (09:14→21:28)
[2019-04-04] MEDS: DOCUSATE SODIUM 100 MG CAPSULE PO SCH ×2 (09:15→21:28)
[2019-04-04] MEDS: methylPREDNISolone SOD SUC 40 MG/1 ML VIAL IV SCH (09:21)
[2019-04-05] MEDS: ALBUTEROL/IPRATROPIUM 3 ML NEB RESP TX SCH ×4 (01:06→20:28)
[2019-04-05 05:29] LABS: Basophils # 0.2 10*3/uL (0.0-0.2); Basophils % 0.1 % (0.0-0.8); Eosinophils # 0.1 10*3/uL (0.0-0.87); Hematocrit 35.4 VOL% (35.7-47.0); Hemoglobin 10.7 GM/DL (12.0-16.0); Immature Granulocytes % 0.1 %; Immature Granulocytes Absolute 0.26 #; Lymphocytes # 155.2 10*3/uL (1.4-4.0); Lymphocytes % 89.2 % (21.3-54.2); Mean Corpuscular HGB Conc 30.2 GM/DL (32-36); Mean Corpuscular Volume 102.9 FL (87-102); Mean Platelet Volume 10.4 FL (9.6-12.0); Monocytes % 9.5 % (1.7-12.7); Neutrophils % 1.1 % (38.7-73.9); Platelet Count 58 T/CUMM (130-400); Red Blood Count 3.44 MC/CUMM (3.8-5.5); Red Cell Distribution Width 17.6 % (9.3-17.3)
[2019-04-05 05:41] LABS: White Blood Count 174.1 T/CUMM (4-12)
[2019-04-05 06:01] LABS: Atypical Lymphocytes Few; Hypochromasia 1+; Lymphocytes 97 % (20-55); Ovalocytes Slight; Platelet Estimate Decreased; Segmented Neutrophils 1 % (50-85); Smudge Cells Moderate; Total Cells Counted 100
[2019-04-05 06:02] LABS: Albumin 2.6 G/DL (3.4-5.0); Calcium 7.6 MG/DL (8.5-10.1); Total Protein 5.4 G/DL (6.4-8.3)
[2019-04-05] MEDS: INSULIN LISPRO 100 UNIT/ML SUBCUT SCH ×4 (09:49→20:15)
[2019-04-05] MEDS: methylPREDNISolone SOD SUC 40 MG/1 ML VIAL IV SCH (09:53)
[2019-04-05] MEDS: LEVOTHYROXINE 125 MCG TABLET PO SCH (09:53)
[2019-04-05] MEDS: PANTOPRAZOLE 40 MG TABLET PO SCH (09:54)
[2019-04-05] MEDS: DOCUSATE SODIUM 100 MG CAPSULE PO SCH ×2 (09:54→20:15)
[2019-04-05] MEDS: hydrALAZINE 25 MG TABLET PO SCH ×2 (09:54→20:15)
[2019-04-05] MEDS: GLIMEPIRIDE 2 MG TABLET PO SCH (09:54)
[2019-04-05] MEDS: DORNASE ALFA 2.5 MG/2.5 ML VIAL RESP TX SCH ×2 (11:10→20:28)
[2019-04-06] MEDS: ALBUTEROL/IPRATROPIUM 3 ML NEB RESP TX SCH ×2 (00:52→07:01)
[2019-04-06 05:38] LABS: Basophils # 0.1 10*3/uL (0.0-0.2); Eosinophils # 0.1 10*3/uL (0.0-0.87); Hemoglobin 10.4 GM/DL (12.0-16.0); Immature Granulocytes % 0.1 %; Immature Granulocytes Absolute 0.18 #; Lymphocytes # 156.9 10*3/uL (1.4-4.0); Lymphocytes % 87.2 % (21.3-54.2); Mean Corpuscular HGB Conc 30.6 GM/DL (32-36); Mean Corpuscular Volume 100.9 FL (87-102); Mean Platelet Volume 10.3 FL (9.6-12.0); Monocytes % 11.9 % (1.7-12.7); Neutrophils % 0.8 % (38.7-73.9); Platelet Count 53 T/CUMM (130-400); Red Blood Count 3.37 MC/CUMM (3.8-5.5); Red Cell Distribution Width 17.2 % (9.3-17.3)
[2019-04-06 06:03] LABS: Lymphocytes 96 % (20-55); Segmented Neutrophils 1 % (50-85); Total Cells Counted 100
[2019-04-06 06:04] LABS: Atypical Lymphocytes Few; Smudge Cells Moderate
[2019-04-06 06:05] LABS: Hypochromasia 1+
[2019-04-06 06:06] LABS: Anisocytosis 1+; Microcytosis 1+; Ovalocytes Slight; Platelet Estimate Decreased
[2019-04-06 06:15] LABS: Albumin 2.6 G/DL (3.4-5.0); Bilirubin,Total 0.7 MG/DL (0.2-1.0); Calcium 7.7 MG/DL (8.5-10.1); Osmolality,Calculated 283.1 MOS/KG (273-304)
[2019-04-06] MEDS: LEVOTHYROXINE 125 MCG TABLET PO SCH (06:56)
[2019-04-06] MEDS: DORNASE ALFA 2.5 MG/2.5 ML VIAL RESP TX SCH (07:09)
[2019-04-06] MEDS ORDERED: POTASSIUM CHLORIDE RIDER 10 MEQ in PREMIX 1 EACH IV PRN (07:50)
[2019-04-06] MEDS: INSULIN LISPRO 100 UNIT/ML SUBCUT SCH ×2 (09:04→12:52)
[2019-04-06] MEDS: methylPREDNISolone SOD SUC 40 MG/1 ML VIAL IV SCH (09:06)
[2019-04-06] MEDS: GLIMEPIRIDE 2 MG TABLET PO SCH (09:08)
[2019-04-06] MEDS: DOCUSATE SODIUM 100 MG CAPSULE PO SCH (09:08)
[2019-04-06] MEDS: ERGOCALCIFEROL 50,000 UNIT CAPSULE PO SCH (09:08)
[2019-04-06] MEDS: PANTOPRAZOLE 40 MG TABLET PO SCH (09:08)
[2019-04-06] MEDS: hydrALAZINE 25 MG TABLET PO SCH (09:08)
[2019-04-06] MEDS: POTASSIUM CHLORIDE RIDER 20 MEQ in PREMIX 1 EACH IV PRN ×2 (09:11→11:14)
[2019-04-06 11:16] LABS: Eosinophils # 0.1 10*3/uL (0.0-0.87); Hematocrit 37.7 VOL% (35.7-47.0); Hemoglobin 11.5 GM/DL (12.0-16.0); Immature Granulocytes % 0.1 %; Immature Granulocytes Absolute 0.27 #; Lymphocytes # 172.6 10*3/uL (1.4-4.0); Mean Corpuscular HGB Conc 30.5 GM/DL (32-36); Mean Corpuscular Volume 102.4 FL (87-102); Mean Platelet Volume 10.8 FL (9.6-12.0); Monocytes % 11.5 % (1.7-12.7); Neutrophils % 1.4 % (38.7-73.9); Platelet Count 54 T/CUMM (130-400); Red Blood Count 3.68 MC/CUMM (3.8-5.5); Red Cell Distribution Width 17.5 % (9.3-17.3)
[2019-04-06 11:19] LABS: White Blood Count 198.5 T/CUMM (4-12)
[2019-04-06 11:37] VITALS: BP 153/71
[2019-04-06 11:46] LABS: Lymphocytes 92 % (20-55); Segmented Neutrophils 2 % (50-85); Total Cells Counted 100
[2019-04-06 11:47] LABS: Atypical Lymphocytes Few; Platelet Estimate Decreased; Smudge Cells Moderate
[2019-04-06 11:48] LABS: Hypochromasia 1+; Microcytosis 1+
[2019-04-06] MEDS ORDERED: HEPARIN LOCK FLUSH 500 UNIT/5 ML SYRINGE IV PRN (12:40)
== END 2019-04-06 13:18 | disposition home health service (06) | DRG 164 ==
LOC: N.4E 11:45
PROVIDERS: ADMIT Internal Medicine; ATTEND Internal Medicine

== ENCOUNTER 2019-08-15 15:01 | Inpatient (IN) ==
[2019-08-15] MEDS ORDERED: GLUCAGON 1 MG VIAL IM PRN ×2 (15:09→15:15)
[2019-08-15] MEDS ORDERED: DEXTROSE 50% 25 GM/50 ML VIAL IV PRN (15:09)
[2019-08-15] MEDS ORDERED: ONDANSETRON 4 MG/2 ML VIAL IV PRN (15:09)
[2019-08-15] MEDS ORDERED: SODIUM CHLORIDE 0.9% 1,000 ML IV PRN (15:15)
[2019-08-15] MEDS ORDERED: DEXTROSE 10% 250 ML BAG IV PRN (15:15)
[2019-08-15] MEDS: INSULIN LISPRO 100 UNIT/ML SUBCUT SCH ×2 (17:20→22:37)
[2019-08-15 17:55] LABS: Basophils # 0.1 10*3/uL (0.0-0.2); Hemoglobin 7.3 GM/DL (12.0-16.0); Immature Granulocytes % 0.4 %; Immature Granulocytes Absolute 0.47 #; Lymphocytes # 108.6 10*3/uL (1.4-4.0); Lymphocytes % 87.2 % (21.3-54.2); Mean Corpuscular HGB Conc 30.4 GM/DL (32-36); Mean Corpuscular Volume 104.8 FL (87-102); Mean Platelet Volume 10.7 FL (9.6-12.0); Monocytes % 10.5 % (1.7-12.7); Neutrophils % 1.9 % (38.7-73.9); Platelet Count 64 T/CUMM (130-400); Red Blood Count 2.29 MC/CUMM (3.8-5.5); Red Cell Distribution Width 18.3 % (9.3-17.3)
[2019-08-15 18:01] LABS: White Blood Count 124.5 T/CUMM (4-12)
[2019-08-15 19:21] LABS: Lymphocytes 100 % (20-55); Total Cells Counted 100
[2019-08-15 19:22] LABS: Smudge Cells 2+
[2019-08-15] MEDS: DOCUSATE SODIUM 100 MG CAPSULE PO SCH (21:04)
[2019-08-15] MEDS: ACETAMINOPHEN 325 MG TABLET PO PRN (22:21)
[2019-08-15] MEDS ORDERED: FUROSEMIDE 40 MG/4 ML VIAL IV ONE (23:42)
[2019-08-16 05:16] LABS: Albumin 2.8 G/DL (3.4-5.0); Bilirubin,Total 1.2 MG/DL (0.2-1.0); Calcium 7.8 MG/DL (8.5-10.1); Osmolality,Calculated 267.2 MOS/KG (273-304); Total Protein 5.5 G/DL (6.4-8.3)
[2019-08-16 07:09] LABS: Basophils # 0.1 10*3/uL (0.0-0.2); Hematocrit 31.8 VOL% (35.7-47.0); Immature Granulocytes % 0.2 %; Mean Corpuscular HGB Conc 31.4 GM/DL (32-36); Mean Corpuscular Volume 97.8 FL (87-102); Mean Platelet Volume 10.8 FL (9.6-12.0); Monocytes % 10.3 % (1.7-12.7); NRBC # 0.03 10*3/uL; Neutrophils % 1.5 % (38.7-73.9); Platelet Count 60 T/CUMM (130-400); Red Blood Count 3.25 MC/CUMM (3.8-5.5); Red Cell Distribution Width 18.6 % (9.3-17.3)
[2019-08-16 07:24] LABS: White Blood Count 130.7 T/CUMM (4-12)
[2019-08-16 07:34] LABS: Hypochromasia 1+; Lymphocytes 92 % (20-55); Platelet Estimate Decreased; Segmented Neutrophils 4 % (50-85); Total Cells Counted 100
[2019-08-16 07:35] LABS: Atypical Lymphocytes Few; Smudge Cells Many
[2019-08-16] MEDS ORDERED: FUROSEMIDE 40 MG/4 ML VIAL IV ONE (07:56)
[2019-08-16] MEDS ORDERED: SODIUM CHLORIDE 0.9% 1,000 ML IV PRN ×2 (08:41→19:39)
[2019-08-16] MEDS ORDERED: ALBUTEROL/IPRATROPIUM 3 ML NEB RESP TX SCH (09:00)
[2019-08-16] MEDS ORDERED: GENTAMICIN 0.3% OPH OINT 3.5 GM TUBE BOTH EYES SCH (09:00)
[2019-08-16] MEDS ORDERED: IMMUNE GLOBULIN 10% 20 GM in PREMIX 1 EACH IV ONE (09:30)
[2019-08-16] MEDS: traMADol 50 MG TABLET PO PRN ×2 (09:36→16:20)
[2019-08-16] MEDS: PANTOPRAZOLE 40 MG TABLET PO SCH (09:36)
[2019-08-16] MEDS: DOCUSATE SODIUM 100 MG CAPSULE PO SCH ×2 (09:36→21:50)
[2019-08-16] MEDS: INSULIN LISPRO 100 UNIT/ML SUBCUT SCH ×4 (09:39→21:49)
[2019-08-16] MEDS: predniSONE 20 MG TABLET PO SCH ×2 (09:57→21:50)
[2019-08-16] MEDS: hydrALAZINE 25 MG TABLET PO SCH ×2 (09:57→21:50)
[2019-08-16] MEDS ORDERED: SODIUM CHLORIDE 0.9% IV ONE (11:00)
[2019-08-16] MEDS ORDERED: RITUXIMAB IV ONE (11:00)
[2019-08-16] MEDS: DORNASE ALFA 2.5 MG/2.5 ML VIAL RESP TX SCH ×2 (11:33→20:00)
[2019-08-16] MEDS: ALBUTEROL/IPRATROPIUM 3 ML NEB RESP TX SCH ×2 (13:58→19:56)
[2019-08-16] MEDS: GENTAMICIN 0.3% OPH SOLN 5 ML BOTTLE BOTH EYES SCH ×4 (14:10→21:50)
[2019-08-16] MEDS: ACETAMINOPHEN 325 MG TABLET PO PRN (14:18)
[2019-08-16] MEDS: GLIMEPIRIDE 2 MG TABLET PO SCH (16:19)
[2019-08-17] MEDS: DORNASE ALFA 2.5 MG/2.5 ML VIAL RESP TX SCH ×2 (07:17→19:03)
[2019-08-17] MEDS: ALBUTEROL/IPRATROPIUM 3 ML NEB RESP TX SCH ×3 (07:17→18:58)
[2019-08-17 08:08] LABS: Basophils # 0.1 10*3/uL (0.0-0.2); Basophils % 0.1 % (0.0-0.8); Hematocrit 33.9 VOL% (35.7-47.0); Hemoglobin 10.9 GM/DL (12.0-16.0); Immature Granulocytes % 0.9 %; Immature Granulocytes Absolute 0.64 #; Lymphocytes # 64.8 10*3/uL (1.4-4.0); Mean Corpuscular HGB Conc 32.2 GM/DL (32-36); Mean Corpuscular Volume 96.3 FL (87-102); Monocytes % 4.1 % (1.7-12.7); Neutrophils % 4.9 % (38.7-73.9); Red Blood Count 3.52 MC/CUMM (3.8-5.5)
[2019-08-17 08:11] LABS: Platelet Count 59 T/CUMM (130-400)
[2019-08-17] MEDS: INSULIN LISPRO 100 UNIT/ML SUBCUT SCH ×4 (08:20→21:13)
[2019-08-17 08:31] LABS: Lymphocytes 96 % (20-55); Reactive Lymphocytes Few; Segmented Neutrophils 2 % (50-85); Smudge Cells Moderate; Total Cells Counted 100
[2019-08-17 08:32] LABS: Anisocytosis 1+; Platelet Estimate Decreased; Polychromasia Slight; Stomatocytes Few
[2019-08-17 08:33] LABS: Atypical Lymphocytes Moderate
[2019-08-17 08:52] LABS: Osmolality,Calculated 275.9 MOS/KG (273-304)
[2019-08-17] MEDS: LEVOTHYROXINE 125 MCG TABLET PO SCH (08:53)
[2019-08-17] MEDS: PANTOPRAZOLE 40 MG TABLET PO SCH (08:53)
[2019-08-17] MEDS: GLIMEPIRIDE 2 MG TABLET PO SCH ×2 (08:53→16:55)
[2019-08-17] MEDS: DOCUSATE SODIUM 100 MG CAPSULE PO SCH ×2 (08:53→22:38)
[2019-08-17] MEDS: predniSONE 20 MG TABLET PO SCH ×2 (08:53→21:13)
[2019-08-17] MEDS: hydrALAZINE 25 MG TABLET PO SCH ×2 (08:53→21:13)
[2019-08-17] MEDS: GENTAMICIN 0.3% OPH SOLN 5 ML BOTTLE BOTH EYES SCH ×4 (08:54→21:13)
[2019-08-17] MEDS ORDERED: FUROSEMIDE 40 MG TABLET PO SCH (09:00)
[2019-08-17] MEDS: ERGOCALCIFEROL 50,000 UNIT CAPSULE PO SCH (09:01)
[2019-08-17] MEDS ORDERED: POTASSIUM CHLORIDE 8 MEQ CAPSULE PO ONE (09:24)
[2019-08-17] MEDS: VANCOMYCIN INJ 1,000 MG in SODIUM CHLORIDE 0.9% 250 ML IV SCH (11:23)
[2019-08-17] MEDS ORDERED: LOPERAMIDE 2 MG CAPSULE PO PRN (22:25)
[2019-08-18 05:02] LABS: Basophils % 0.1 % (0.0-0.8); Hematocrit 26.5 VOL% (35.7-47.0); Hemoglobin 8.5 GM/DL (12.0-16.0); Immature Granulocytes % 0.5 %; Immature Granulocytes Absolute 0.16 #; Lymphocytes # 26.2 10*3/uL (1.4-4.0); Lymphocytes % 80.4 % (21.3-54.2); Mean Corpuscular HGB Conc 32.1 GM/DL (32-36); Mean Corpuscular Volume 97.1 FL (87-102); Monocytes % 12.2 % (1.7-12.7); Neutrophils % 6.8 % (38.7-73.9); Platelet Count 47 T/CUMM (130-400); Red Blood Count 2.73 MC/CUMM (3.8-5.5); Red Cell Distribution Width 19.1 % (9.3-17.3); White Blood Count 32.6 T/CUMM (4-12)
[2019-08-18 05:14] LABS: Calcium 7.7 MG/DL (8.5-10.1); Osmolality,Calculated 274.1 MOS/KG (273-304)
[2019-08-18 05:26] LABS: Lymphocytes 83 % (20-55); Platelet Estimate Decreased; Segmented Neutrophils 15 % (50-85); Total Cells Counted 100
[2019-08-18 05:27] LABS: Atypical Lymphocytes Few; Hypochromasia 1+; Smudge Cells Moderate
[2019-08-18] MEDS: ALBUTEROL/IPRATROPIUM 3 ML NEB RESP TX SCH ×3 (07:11→20:00)
[2019-08-18] MEDS: LEVOTHYROXINE 125 MCG TABLET PO SCH (07:13)
[2019-08-18] MEDS: DORNASE ALFA 2.5 MG/2.5 ML VIAL RESP TX SCH ×2 (07:17→20:10)
[2019-08-18] MEDS: predniSONE 20 MG TABLET PO SCH ×2 (08:27→20:26)
[2019-08-18] MEDS: FUROSEMIDE 40 MG TABLET PO SCH (08:27)
[2019-08-18] MEDS: hydrALAZINE 25 MG TABLET PO SCH ×2 (08:28→20:26)
[2019-08-18] MEDS: PANTOPRAZOLE 40 MG TABLET PO SCH (08:28)
[2019-08-18] MEDS: GLIMEPIRIDE 2 MG TABLET PO SCH ×2 (08:28→16:54)
[2019-08-18] MEDS: POTASSIUM CHLORIDE 8 MEQ CAPSULE PO SCH (08:29)
[2019-08-18] MEDS: GENTAMICIN 0.3% OPH SOLN 5 ML BOTTLE BOTH EYES SCH ×4 (08:29→20:27)
[2019-08-18] MEDS: INSULIN LISPRO 100 UNIT/ML SUBCUT SCH ×4 (08:31→20:27)
[2019-08-18] MEDS: DOCUSATE SODIUM 100 MG CAPSULE PO SCH ×2 (08:31→20:27)
[2019-08-18] MEDS: traMADol 50 MG TABLET PO PRN ×2 (10:10→20:25)
[2019-08-18] MEDS: VANCOMYCIN INJ 1,000 MG in SODIUM CHLORIDE 0.9% 250 ML IV SCH (12:17)
[2019-08-19 05:06] LABS: Basophils % 0.1 % (0.0-0.8); Hematocrit 27.8 VOL% (35.7-47.0); Hemoglobin 8.5 GM/DL (12.0-16.0); Immature Granulocytes % 0.5 %; Immature Granulocytes Absolute 0.15 #; Lymphocytes # 23.5 10*3/uL (1.4-4.0); Lymphocytes % 85.8 % (21.3-54.2); Mean Corpuscular HGB Conc 30.6 GM/DL (32-36); Mean Corpuscular Volume 100.7 FL (87-102); Monocytes % 8.1 % (1.7-12.7); Neutrophils % 5.5 % (38.7-73.9); Platelet Count 40 T/CUMM (130-400); Red Blood Count 2.76 MC/CUMM (3.8-5.5); Red Cell Distribution Width 19.2 % (9.3-17.3); White Blood Count 27.3 T/CUMM (4-12)
[2019-08-19 05:56] LABS: Band Neutrophils 2 % (0-10); Lymphocytes 79 % (20-55); Platelet Estimate Decreased; Segmented Neutrophils 10 % (50-85); Total Cells Counted 100
[2019-08-19 05:58] LABS: Smudge Cells Many
[2019-08-19 05:59] LABS: Anisocytosis 2+; Atypical Lymphocytes Moderate; Macrocytosis 2+; Ovalocytes Few
[2019-08-19] MEDS: LEVOTHYROXINE 125 MCG TABLET PO SCH (06:55)
[2019-08-19] MEDS: DORNASE ALFA 2.5 MG/2.5 ML VIAL RESP TX SCH ×2 (07:20→19:37)
[2019-08-19] MEDS: ALBUTEROL/IPRATROPIUM 3 ML NEB RESP TX SCH ×3 (07:20→19:37)
[2019-08-19] MEDS: FUROSEMIDE 40 MG TABLET PO SCH (08:54)
[2019-08-19] MEDS: POTASSIUM CHLORIDE 8 MEQ CAPSULE PO SCH (08:55)
[2019-08-19] MEDS: GLIMEPIRIDE 2 MG TABLET PO SCH ×2 (08:55→18:13)
[2019-08-19] MEDS: predniSONE 20 MG TABLET PO SCH ×2 (08:56→21:32)
[2019-08-19] MEDS: hydrALAZINE 25 MG TABLET PO SCH ×2 (08:56→21:31)
[2019-08-19] MEDS: PANTOPRAZOLE 40 MG TABLET PO SCH (08:56)
[2019-08-19] MEDS: INSULIN LISPRO 100 UNIT/ML SUBCUT SCH ×4 (08:57→21:31)
[2019-08-19] MEDS: GENTAMICIN 0.3% OPH SOLN 5 ML BOTTLE BOTH EYES SCH ×4 (09:00→21:32)
[2019-08-19] MEDS: DOCUSATE SODIUM 100 MG CAPSULE PO SCH ×2 (10:19→21:31)
[2019-08-19] MEDS: traMADol 50 MG TABLET PO PRN ×2 (10:21→21:31)
[2019-08-19] MEDS: VANCOMYCIN INJ 1,000 MG in SODIUM CHLORIDE 0.9% 250 ML IV SCH (13:21)
[2019-08-20] MEDS: INSULIN LISPRO 100 UNIT/ML SUBCUT SCH ×5 (00:33→21:19)
[2019-08-20] MEDS: ACETAMINOPHEN 325 MG TABLET PO PRN ×2 (00:33→11:44)
[2019-08-20 05:33] LABS: Basophils % 0.1 % (0.0-0.8); Hemoglobin 8.9 GM/DL (12.0-16.0); Immature Granulocytes % 0.4 %; Immature Granulocytes Absolute 0.13 #; Lymphocytes # 27.4 10*3/uL (1.4-4.0); Lymphocytes % 83.8 % (21.3-54.2); Mean Corpuscular HGB Conc 31.8 GM/DL (32-36); Mean Corpuscular Volume 99.6 FL (87-102); Mean Platelet Volume 10.8 FL (9.6-12.0); Monocytes % 10.4 % (1.7-12.7); Neutrophils % 5.3 % (38.7-73.9); Platelet Count 50 T/CUMM (130-400); Red Blood Count 2.81 MC/CUMM (3.8-5.5); Red Cell Distribution Width 18.6 % (9.3-17.3); White Blood Count 32.7 T/CUMM (4-12)
[2019-08-20 06:06] LABS: Calcium 7.9 MG/DL (8.5-10.1); Osmolality,Calculated 275.8 MOS/KG (273-304)
[2019-08-20 06:15] LABS: Lymphocytes 93 % (20-55); Platelet Estimate Decreased; Segmented Neutrophils 6 % (50-85); Total Cells Counted 100
[2019-08-20 06:18] LABS: Smudge Cells Many
[2019-08-20 06:19] LABS: Hypochromasia 2+; Macrocytosis Slight; Stomatocytes Few
[2019-08-20] MEDS: LEVOTHYROXINE 125 MCG TABLET PO SCH (06:42)
[2019-08-20] MEDS: GLIMEPIRIDE 2 MG TABLET PO SCH ×2 (06:42→16:40)
[2019-08-20] MEDS: ALBUTEROL/IPRATROPIUM 3 ML NEB RESP TX SCH ×3 (08:01→18:21)
[2019-08-20] MEDS: DORNASE ALFA 2.5 MG/2.5 ML VIAL RESP TX SCH ×2 (08:01→18:21)
[2019-08-20] MEDS: traMADol 50 MG TABLET PO PRN ×2 (09:22→21:19)
[2019-08-20] MEDS: POTASSIUM CHLORIDE 8 MEQ CAPSULE PO SCH (09:23)
[2019-08-20] MEDS: PANTOPRAZOLE 40 MG TABLET PO SCH (09:23)
[2019-08-20] MEDS: DOCUSATE SODIUM 100 MG CAPSULE PO SCH ×2 (09:24→21:20)
[2019-08-20] MEDS: FUROSEMIDE 40 MG TABLET PO SCH (09:24)
[2019-08-20] MEDS: predniSONE 20 MG TABLET PO SCH ×2 (09:24→21:20)
[2019-08-20] MEDS: hydrALAZINE 25 MG TABLET PO SCH ×2 (09:24→21:20)
[2019-08-20] MEDS: GENTAMICIN 0.3% OPH SOLN 5 ML BOTTLE BOTH EYES SCH ×4 (09:25→21:19)
[2019-08-20] MEDS: VANCOMYCIN INJ 1,000 MG in SODIUM CHLORIDE 0.9% 250 ML IV SCH (12:23)
[2019-08-21 05:00] LABS: Basophils % 0.1 % (0.0-0.8); Hematocrit 28.9 VOL% (35.7-47.0); Hemoglobin 9.2 GM/DL (12.0-16.0); Immature Granulocytes % 0.3 %; Immature Granulocytes Absolute 0.08 #; Lymphocytes # 26.4 10*3/uL (1.4-4.0); Lymphocytes % 87.3 % (21.3-54.2); Mean Corpuscular HGB Conc 31.8 GM/DL (32-36); Mean Corpuscular Volume 100.3 FL (87-102); Mean Platelet Volume 10.8 FL (9.6-12.0); Monocytes % 7.7 % (1.7-12.7); Neutrophils % 4.6 % (38.7-73.9); Platelet Count 59 T/CUMM (130-400); Red Blood Count 2.88 MC/CUMM (3.8-5.5); Red Cell Distribution Width 18.6 % (9.3-17.3); White Blood Count 30.3 T/CUMM (4-12)
[2019-08-21 06:15] LABS: Lymphocytes 91 % (20-55); Platelet Estimate Decreased; Segmented Neutrophils 8 % (50-85); Smudge Cells Many; Total Cells Counted 100
[2019-08-21 06:16] LABS: Anisocytosis 1+; Macrocytosis Slight
[2019-08-21 06:17] LABS: Hypochromasia 1+; Polychromasia Few; Stomatocytes Few
[2019-08-21] MEDS: ALBUTEROL/IPRATROPIUM 3 ML NEB RESP TX SCH ×3 (07:12→20:49)
[2019-08-21] MEDS: DORNASE ALFA 2.5 MG/2.5 ML VIAL RESP TX SCH ×2 (07:12→20:49)
[2019-08-21] MEDS: GLIMEPIRIDE 2 MG TABLET PO SCH ×2 (07:17→16:50)
[2019-08-21] MEDS: LEVOTHYROXINE 125 MCG TABLET PO SCH (07:17)
[2019-08-21] MEDS ORDERED: chlorproMAZINE INJ 50 MG in SODIUM CHLORIDE 0.9% 100 ML IV PRN (07:46)
[2019-08-21] MEDS ORDERED: ALPRAZolam 0.25 MG TABLET PO PRN (07:46)
[2019-08-21] MEDS ORDERED: MAGNESIUM HYDROXIDE SUSP 30 ML UDCUP PO PRN (07:46)
[2019-08-21] MEDS ORDERED: diphenhydrAMINE CAP 25 MG CAPSULE PO PRN (07:46)
[2019-08-21] MEDS ORDERED: ONDANSETRON 4 MG/2 ML VIAL IV PRN (07:46)
[2019-08-21] MEDS ORDERED: MYLANTA/LIDO VISC 2:1 300 ML BOTTLE SWISH/SWAL PRN (07:46)
[2019-08-21] MEDS ORDERED: LACTULOSE 20 GM/30 ML UDCUP PO PRN (07:46)
[2019-08-21] MEDS ORDERED: MYLANTA/LIDO VISC 2:1 300 ML BOTTLE SWISH/SPIT PRN (07:46)
[2019-08-21] MEDS ORDERED: chlorproMAZINE INJ 25 MG in SODIUM CHLORIDE 0.9% 100 ML IV PRN (07:46)
[2019-08-21] MEDS ORDERED: PROMETHAZINE INJ 25 MG in SODIUM CHLORIDE 0.9% 50 ML IV PRN (07:46)
[2019-08-21] MEDS ORDERED: TEMAZEPAM 7.5 MG CAPSULE PO PRN (07:46)
[2019-08-21] MEDS ORDERED: LOPERAMIDE 2 MG CAPSULE PO PRN (07:46)
[2019-08-21] MEDS ORDERED: ALUMINUM/MAGNES/SIMETH MAX STR 30 ML UDCUP PO PRN (07:46)
[2019-08-21] MEDS: INSULIN LISPRO 100 UNIT/ML SUBCUT SCH ×4 (08:02→20:38)
[2019-08-21] MEDS: FUROSEMIDE 40 MG TABLET PO SCH (08:52)
[2019-08-21] MEDS: PANTOPRAZOLE 40 MG TABLET PO SCH (08:52)
[2019-08-21] MEDS: predniSONE 20 MG TABLET PO SCH ×2 (08:52→20:38)
[2019-08-21] MEDS: hydrALAZINE 25 MG TABLET PO SCH ×2 (08:52→20:37)
[2019-08-21] MEDS: POTASSIUM CHLORIDE 8 MEQ CAPSULE PO SCH (08:52)
[2019-08-21] MEDS: DOCUSATE SODIUM 100 MG CAPSULE PO SCH ×2 (08:52→20:37)
[2019-08-21] MEDS: guaiFENesin 200 MG/10 ML UDCUP PO PRN ×2 (08:56→15:22)
[2019-08-21] MEDS: GENTAMICIN 0.3% OPH SOLN 5 ML BOTTLE BOTH EYES SCH ×4 (08:59→21:37)
[2019-08-21] MEDS: VANCOMYCIN INJ 1,000 MG in SODIUM CHLORIDE 0.9% 250 ML IV SCH (12:59)
[2019-08-21] MEDS: traMADol 50 MG TABLET PO PRN (15:23)
[2019-08-21] MEDS: ACETAMINOPHEN 325 MG TABLET PO PRN (18:54)
[2019-08-21] MEDS: DEXTROMETHORPHAN ER 6 MG/ML 90 ML/BOTTLE PO PRN (21:37)
[2019-08-22 05:28] LABS: Basophils # 0.1 10*3/uL (0.0-0.2); Basophils % 0.2 % (0.0-0.8); Hematocrit 31.7 VOL% (35.7-47.0); Immature Granulocytes % 0.4 %; Immature Granulocytes Absolute 0.17 #; Lymphocytes # 38.6 10*3/uL (1.4-4.0); Lymphocytes % 87.7 % (21.3-54.2); Mean Corpuscular HGB Conc 31.5 GM/DL (32-36); Mean Corpuscular Volume 98.1 FL (87-102); Mean Platelet Volume 10.7 FL (9.6-12.0); Monocytes % 7.6 % (1.7-12.7); Neutrophils % 4.1 % (38.7-73.9); Platelet Count 62 T/CUMM (130-400); Red Blood Count 3.23 MC/CUMM (3.8-5.5); Red Cell Distribution Width 18.4 % (9.3-17.3)
[2019-08-22 05:41] LABS: Calcium 7.8 MG/DL (8.5-10.1); Osmolality,Calculated 275.4 MOS/KG (273-304)
[2019-08-22 06:06] LABS: Atypical Lymphocytes Moderate; Lymphocytes 83 % (20-55); Segmented Neutrophils 14 % (50-85); Smudge Cells Moderate; Total Cells Counted 100
[2019-08-22 06:07] LABS: Anisocytosis 1+; Hypochromasia 1+; Macrocytosis 1+; Platelet Estimate Decreased
[2019-08-22] MEDS: LEVOTHYROXINE 125 MCG TABLET PO SCH (06:31)
[2019-08-22] MEDS ORDERED: FUROSEMIDE 40 MG/4 ML VIAL IV ONE (07:55)
[2019-08-22] MEDS ORDERED: ALBUTEROL/IPRATROPIUM 3 ML NEB RESP TX PRN (07:58)
[2019-08-22] MEDS: DORNASE ALFA 2.5 MG/2.5 ML VIAL RESP TX SCH ×2 (08:27→19:30)
[2019-08-22] MEDS: ALBUTEROL/IPRATROPIUM 3 ML NEB RESP TX SCH ×3 (08:27→19:30)
[2019-08-22] MEDS ORDERED: SODIUM CHLORIDE 0.9% 1,000 ML IV PRN (08:31)
[2019-08-22] MEDS: PANTOPRAZOLE 40 MG TABLET PO SCH (08:37)
[2019-08-22] MEDS: predniSONE 20 MG TABLET PO SCH ×2 (08:37→20:54)
[2019-08-22] MEDS: FUROSEMIDE 40 MG TABLET PO SCH (08:38)
[2019-08-22] MEDS: hydrALAZINE 25 MG TABLET PO SCH ×2 (08:38→20:54)
[2019-08-22] MEDS: POTASSIUM CHLORIDE 8 MEQ CAPSULE PO SCH (08:38)
[2019-08-22] MEDS: GLIMEPIRIDE 2 MG TABLET PO SCH ×2 (08:38→16:12)
[2019-08-22] MEDS: INSULIN LISPRO 100 UNIT/ML SUBCUT SCH ×4 (08:39→21:58)
[2019-08-22] MEDS: DOCUSATE SODIUM 100 MG CAPSULE PO SCH ×2 (08:39→20:54)
[2019-08-22] MEDS: GENTAMICIN 0.3% OPH SOLN 5 ML BOTTLE BOTH EYES SCH ×4 (08:50→21:03)
[2019-08-22] MEDS: DEXTROMETHORPHAN ER 6 MG/ML 90 ML/BOTTLE PO PRN (08:50)
[2019-08-22] MEDS ORDERED: IMMUNE GLOBULIN IV ONE (09:30)
[2019-08-22 09:39] LABS: Troponin I < 0.015 NG/ML (0.00-0.045)
[2019-08-22] MEDS ORDERED: CYANOCOBALAMIN 1000 MCG/1 ML VIAL IM SCH (10:30)
[2019-08-22] MEDS: traMADol 50 MG TABLET PO PRN (13:53)
[2019-08-22] MEDS: VANCOMYCIN INJ 1,000 MG in SODIUM CHLORIDE 0.9% 250 ML IV SCH (16:11)
[2019-08-23 05:05] LABS: Hematocrit 32.7 VOL% (35.7-47.0); Hemoglobin 10.4 GM/DL (12.0-16.0); Immature Granulocytes % 0.5 %; Immature Granulocytes Absolute 0.37 #; Lymphocytes # 60.7 10*3/uL (1.4-4.0); Lymphocytes % 85.6 % (21.3-54.2); Mean Corpuscular HGB Conc 31.8 GM/DL (32-36); Mean Corpuscular Volume 97.6 FL (87-102); Mean Platelet Volume 10.8 FL (9.6-12.0); Monocytes % 11.3 % (1.7-12.7); Neutrophils % 2.6 % (38.7-73.9); Platelet Count 75 T/CUMM (130-400); Red Blood Count 3.35 MC/CUMM (3.8-5.5); Red Cell Distribution Width 18.7 % (9.3-17.3)
[2019-08-23 05:07] LABS: White Blood Count 70.9 T/CUMM (4-12)
[2019-08-23 05:28] LABS: Lymphocytes 95 % (20-55); Segmented Neutrophils 5 % (50-85); Smudge Cells Many; Total Cells Counted 100
[2019-08-23 05:29] LABS: Anisocytosis 1+; Macrocytosis Slight; Platelet Estimate Decreased
[2019-08-23 05:30] LABS: Stomatocytes Few; Tear Drop Cells Few
[2019-08-23 05:31] LABS: Calcium 8.4 MG/DL (8.5-10.1); Osmolality,Calculated 265.8 MOS/KG (273-304)
[2019-08-23] MEDS: ALBUTEROL/IPRATROPIUM 3 ML NEB RESP TX SCH ×3 (07:33→19:51)
[2019-08-23] MEDS: DORNASE ALFA 2.5 MG/2.5 ML VIAL RESP TX SCH ×2 (07:33→19:51)
[2019-08-23] MEDS: INSULIN LISPRO 100 UNIT/ML SUBCUT SCH ×4 (08:15→21:04)
[2019-08-23] MEDS: GLIMEPIRIDE 2 MG TABLET PO SCH ×2 (08:47→15:29)
[2019-08-23] MEDS: hydrALAZINE 25 MG TABLET PO SCH ×2 (08:57→21:06)
[2019-08-23] MEDS: FUROSEMIDE 40 MG TABLET PO SCH (08:57)
[2019-08-23] MEDS: predniSONE 10 MG TABLET PO SCH (08:57)
[2019-08-23] MEDS: traMADol 50 MG TABLET PO PRN (08:57)
[2019-08-23] MEDS: POTASSIUM CHLORIDE 8 MEQ CAPSULE PO SCH ×2 (08:57→21:06)
[2019-08-23] MEDS: PANTOPRAZOLE 40 MG TABLET PO SCH (08:58)
[2019-08-23] MEDS: DOCUSATE SODIUM 100 MG CAPSULE PO SCH ×2 (08:58→21:06)
[2019-08-23] MEDS: LEVOTHYROXINE 125 MCG TABLET PO SCH (08:58)
[2019-08-23] MEDS: GENTAMICIN 0.3% OPH SOLN 5 ML BOTTLE BOTH EYES SCH ×4 (10:15→21:06)
[2019-08-23] MEDS ORDERED: BUPIVACAINE MPF 0.25% 30 ML VIAL ONE (10:49)
[2019-08-23] MEDS ORDERED: LIDOCAINE 1%/EPI INJ 20 ML VIAL ONE (10:49)
[2019-08-23] MEDS ORDERED: LACTATED RINGERS 1,000 ML IV SCH (11:00)
[2019-08-23] MEDS ORDERED: ALBUTEROL 2.5 MG/3 ML NEB RESP TX ONE (11:14)
[2019-08-23] MEDS ORDERED: ALBUTEROL/IPRATROPIUM 3 ML NEB RESP TX ONE (11:18)
[2019-08-23] MEDS ORDERED: TISSUE ADHESIVE 1 EACH APPLICATOR TOP ONE (11:53)
[2019-08-23] MEDS ORDERED: propofoL 200 MG/20 ML VIAL IV ONE (12:10)
[2019-08-23] MEDS ORDERED: MIDAZOLAM 2 MG/2 ML VIAL ONE (12:10)
[2019-08-23] MEDS ORDERED: LIDOCAINE 2% 5 ML VIAL ONE (12:10)
[2019-08-23] MEDS ORDERED: fentaNYL 100 MCG/2 ML VIAL ONE (12:11)
[2019-08-23] MEDS: VANCOMYCIN INJ 1,000 MG in SODIUM CHLORIDE 0.9% 250 ML IV SCH (15:30)
[2019-08-23] MEDS: DEXTROMETHORPHAN ER 6 MG/ML 90 ML/BOTTLE PO PRN (21:04)
[2019-08-24 05:47] LABS: Calcium 8.4 MG/DL (8.5-10.1); Osmolality,Calculated 267.5 MOS/KG (273-304)
[2019-08-24] MEDS: DORNASE ALFA 2.5 MG/2.5 ML VIAL RESP TX SCH ×2 (07:24→19:23)
[2019-08-24] MEDS: ALBUTEROL/IPRATROPIUM 3 ML NEB RESP TX SCH ×5 (07:24→19:15)
[2019-08-24] MEDS: LEVOTHYROXINE 125 MCG TABLET PO SCH (07:40)
[2019-08-24] MEDS ORDERED: FUROSEMIDE 40 MG/4 ML VIAL IV ONE (08:04)
[2019-08-24] MEDS ORDERED: SODIUM CHLORIDE 0.9% 1,000 ML IV PRN ×2 (08:55→10:31)
[2019-08-24] MEDS: ERGOCALCIFEROL 50,000 UNIT CAPSULE PO SCH (10:42)
[2019-08-24] MEDS: guaiFENesin 200 MG/10 ML UDCUP PO PRN (10:42)
[2019-08-24] MEDS: PANTOPRAZOLE 40 MG TABLET PO SCH (10:43)
[2019-08-24] MEDS: POTASSIUM CHLORIDE 8 MEQ CAPSULE PO SCH ×2 (10:43→20:57)
[2019-08-24] MEDS: GLIMEPIRIDE 2 MG TABLET PO SCH ×2 (10:43→18:45)
[2019-08-24] MEDS: hydrALAZINE 25 MG TABLET PO SCH ×2 (10:43→20:57)
[2019-08-24] MEDS: predniSONE 10 MG TABLET PO SCH (10:43)
[2019-08-24] MEDS: FUROSEMIDE 40 MG TABLET PO SCH ×2 (10:49→18:45)
[2019-08-24] MEDS: ceFAZolin 2,000 MG in PREMIX 1 EACH IV SCH ×2 (10:52→18:46)
[2019-08-24] MEDS: GENTAMICIN 0.3% OPH SOLN 5 ML BOTTLE BOTH EYES SCH ×4 (10:52→20:52)
[2019-08-24] MEDS: INSULIN LISPRO 100 UNIT/ML SUBCUT SCH ×3 (10:52→18:46)
[2019-08-24] MEDS: methylPREDNISolone SOD SUC 40 MG/1 ML VIAL IV SCH ×3 (10:53→20:52)
[2019-08-24] MEDS: DOCUSATE SODIUM 100 MG CAPSULE PO SCH ×2 (10:55→20:57)
[2019-08-24] MEDS: ACETAMINOPHEN 325 MG TABLET PO PRN (13:17)
[2019-08-24] MEDS ORDERED: FUROSEMIDE 40 MG TABLET PO SCH (14:00)
[2019-08-24] MEDS: VANCOMYCIN INJ 1,000 MG in SODIUM CHLORIDE 0.9% 250 ML IV SCH (21:03)
[2019-08-25] MEDS: ceFAZolin 2,000 MG in PREMIX 1 EACH IV SCH (01:15)
[2019-08-25] MEDS: INSULIN LISPRO 100 UNIT/ML SUBCUT SCH ×5 (01:21→22:26)
[2019-08-25] MEDS: methylPREDNISolone SOD SUC 40 MG/1 ML VIAL IV SCH ×4 (03:57→20:25)
[2019-08-25 05:32] LABS: Hematocrit 33.8 VOL% (35.7-47.0); Hemoglobin 10.4 GM/DL (12.0-16.0); Immature Granulocytes Absolute 0.02 #; Mean Corpuscular HGB Conc 30.8 GM/DL (32-36); Mean Corpuscular Volume 97.7 FL (87-102); Mean Platelet Volume 10.4 FL (9.6-12.0); Monocytes % 6.8 % (1.7-12.7); Neutrophils % 1.2 % (38.7-73.9); Platelet Count 74 T/CUMM (130-400); Red Blood Count 3.46 MC/CUMM (3.8-5.5); Red Cell Distribution Width 18.7 % (9.3-17.3)
[2019-08-25 06:00] LABS: Atypical Lymphocytes Few; Hypochromasia 1+; Lymphocytes 97 % (20-55); Platelet Estimate Decreased; Segmented Neutrophils 1 % (50-85); Smudge Cells Moderate; Total Cells Counted 100
[2019-08-25 06:12] LABS: Albumin 2.7 G/DL (3.4-5.0); Bilirubin,Total 1.8 MG/DL (0.2-1.0); Calcium 8.4 MG/DL (8.5-10.1); Osmolality,Calculated 271.1 MOS/KG (273-304); Total Protein 6.7 G/DL (6.4-8.3)
[2019-08-25] MEDS: ALBUTEROL/IPRATROPIUM 3 ML NEB RESP TX SCH ×4 (07:29→20:59)
[2019-08-25] MEDS: DORNASE ALFA 2.5 MG/2.5 ML VIAL RESP TX SCH ×2 (07:38→21:02)
[2019-08-25] MEDS ORDERED: LEVOFLOXACIN INJ 500 MG in PREMIX 1 EACH IV SCH (08:30)
[2019-08-25] MEDS: FUROSEMIDE 40 MG TABLET PO SCH (08:41)
[2019-08-25] MEDS: DOCUSATE SODIUM 100 MG CAPSULE PO SCH ×2 (08:44→22:26)
[2019-08-25] MEDS: LEVOTHYROXINE 125 MCG TABLET PO SCH (08:44)
[2019-08-25] MEDS: GLIMEPIRIDE 2 MG TABLET PO SCH ×2 (08:44→17:15)
[2019-08-25] MEDS: FUROSEMIDE 40 MG/4 ML VIAL IV SCH ×2 (09:49→20:18)
[2019-08-25] MEDS: PANTOPRAZOLE 40 MG TABLET PO SCH (09:51)
[2019-08-25] MEDS: hydrALAZINE 25 MG TABLET PO SCH ×2 (09:53→22:26)
[2019-08-25] MEDS: GENTAMICIN 0.3% OPH SOLN 5 ML BOTTLE BOTH EYES SCH ×4 (09:54→22:26)
[2019-08-25] MEDS: PIPERACILLIN/TAZOBACTAM 3,375 MG in SODIUM CHLORIDE 0.9% 100 ML IV SCH ×2 (09:58→17:16)
[2019-08-25] MEDS: POTASSIUM CHLORIDE 8 MEQ CAPSULE PO SCH ×2 (09:59→22:26)
[2019-08-25] MEDS ORDERED: MORPHINE 4 MG/1 ML VIAL IM PRN (13:24)
[2019-08-25] MEDS: MORPHINE 4 MG/1 ML VIAL IV PRN ×7 (13:33→23:55)
[2019-08-25] MEDS: VANCOMYCIN INJ 1,000 MG in SODIUM CHLORIDE 0.9% 250 ML IV SCH (20:26)
[2019-08-26 00:49] VITALS: BP 82/42
[2019-08-26] MEDS: PIPERACILLIN/TAZOBACTAM 3,375 MG in SODIUM CHLORIDE 0.9% 100 ML IV SCH (02:29)
[2019-08-26] MEDS: methylPREDNISolone SOD SUC 40 MG/1 ML VIAL IV SCH (02:30)
[2019-08-30] MEDS ORDERED: predniSONE 20 MG TABLET PO SCH (09:00)
[2019-09-06] MEDS ORDERED: predniSONE 10 MG TABLET PO SCH (09:00)
== END 2019-08-26 03:30 | disposition expired | DRG 840 ==
LOC: N.4E → OBSVTOIN 15:25
PROVIDERS: ADMIT Internal Medicine; ATTEND Internal Medicine